=== PATIENT | male | born 1945 | race Caucasian/White ===

== ENCOUNTER 2020-01-12 19:24 | Inpatient (IN) | payer OTHER, MEDICARE, SELFPAY ==
--- NOTE | ~2020-01-12 | XR_ITS ---
EXAMINATION: XR abdomen/kub 1V DATE: 01/19/2020 09:18 INDICATION: Abdominal pain. Vomiting. TECHNIQUE: A supine view of the abdomen on 2 radiographs was obtained. COMPARISON: None. FINDINGS: There is gaseous distention of the colon. The small bowel is normal in caliber. IMPRESSION: 1. Gaseous distention of the colon, consistent with adynamic ileus versus distal obstruction. Reviewed, dictated and finalized at location B. IMPRESSION: 1. Gaseous distention of the colon, consistent with adynamic ileus versus dista l obstruction.
--- NOTE | ~2020-01-12 | XR_ITS ---
XR abdomen NG/feed tube insert INDICATION: Evaluate G-tube position. TECHNIQUE: Limited KUB perform for evaluating NG tube . COMPARISON: 01/19/2020 FINDINGS: NG tube tip in the stomach. Visualized bowel gas pattern is nonspecific. IMPRESSION: 1: NG tube tip in the stomach. Reviewed, dictated and finalized at location A.
--- NOTE | ~2020-01-12 | XR_ITS ---
XR abdomen/kub 1V 01/24/2020 09:08 Indication: Abdominal distention and nausea Procedure: KUB Comparison: 01/21/2020 Findings: Decreased gaseous distention of the colon. Interval removal of NG tube. No significant smal l bowel dilation. No abnormal calcifications. Small left pleural effusion. Cardiomegaly. Calcificatio ns in the right upper abdomen may represent calcified granulomas of the lung base. Impression: 1: Nonspecific bowel gas pattern, likely ileus. Decreased gaseous distention of the colon compared wi th prior study. Reviewed, dictated and finalized at location A. Impression: 1: Nonspecific bowel gas pattern, likely ileus. Decreased gaseous distention of the colon compared with prior study.
--- NOTE | ~2020-01-12 | US_ITS ---
EXAMINATION: US carotid duplex BI DATE: 01/13/2020 12:18 INDICATION: Left frontal lobe infarct. TECHNIQUE: Grayscale, color Doppler, and pulsed Doppler images of the cervical carotid arteries were obtained. The degree of vessel stenosis is placed in one of the following categories: normal, <50%, 5 0-69%, >=70% but less than near-occlusion, near-occlusion, or total occlusion. Note that percent sten osis relative to normal distal artery lumen diameter is indirectly measured from velocity measurement s as described by Mitch, et al. Radiology 2003; 229:340-346. COMPARISON: Brain MRI 02/02/2012, carotid ultrasound 02/02/2012 FINDINGS: RIGHT: The right common carotid artery (CCA) peak systolic velocity (PSV) is 93 cm/s. The right internal car otid artery (ICA) PSV is 52 cm/s. The right ICA end-diastolic velocity (EDV) is 12 cm/s. The right IC A/CCA PSV ratio is 0.6. Grayscale and color Doppler images yield an estimate of <50% diameter reducti on from plaque in the ICA. There is antegrade flow in the right vertebral artery. LEFT: The left CCA PSV is 93 cm/s. The left ICA PSV is 53 cm/s. The left ICA EDV is 11 cm/s. The left ICA/C CA PSV ratio is 0.6. The ICA lumen is obscured by shadowing plaque. There is antegrade flow in the le ft vertebral artery. IMPRESSION: 1. <50% stenosis in the right internal carotid artery. 2. <50% stenosis in the left internal carotid artery. Reviewed, dictated and finalized at location A.
--- NOTE | ~2020-01-12 | XR_ITS ---
EXAMINATION: XR chest 1V portable EXAM DATE: 01/18/2020 06:57 INDICATION: Pneumonia. TECHNIQUE: Portable AP frontal chest x-ray was obtained. Comparison is made to prior examination from 01/16/2020. FINDINGS: Moderate left, small to moderate right perihilar indistinct reticulation, and some more foc al opacities. There is some pulmonary vascular congestion. The cardiomediastinal silhouette is promin ent but magnified on this AP technique. Cardiac silhouette is stable in size compared to prior exam. There is no pneumothorax suspected. No sizable pleural effusion. Accounting for differences in techni que, there is no significant interval change. IMPRESSION: Persistent bilateral infection and/or edema. Reviewed, dictated and finalized at location B.
--- NOTE | ~2020-01-12 | CT_ITS ---
EXAMINATION: CT abdomen pelvis w con EXAM DATE: 01/19/2020 12:37 INDICATION: Abdominal distention. TECHNIQUE: Spiral CT of the abdomen and pelvis was performed following intravenous injection of 100 m L Omnipaque 350. Axial, coronal and sagittal images were reviewed. The dose-length product (DLP) fo r this examination was 1346.56 mGy-cm. The exposure was tailored according to patient size (auto mA exposure control), and iterative reconstruction (ASIR) was used as additional dose reduction techniqu e. There is no prior study for comparison. FINDINGS: The liver, spleen, adrenal glands and pancreas are unremarkable. Gallbladder is unremarkab le. No biliary obstruction. Portal and splenic veins are patent. Kidneys enhance symmetrically. T here is no hydronephrosis. The prostate is unremarkable. There are small bilateral inguinal fat-con taining hernias. The bladder is unremarkable. There is no retroperitoneal or pelvic lymphadenopathy . There is mild scattered arteriosclerotic disease. The appendix is normal. There is small sliding gastroesophageal hiatal hernia. There is colonic flu id, correlate for diarrhea. Colon is moderately to severely distended with fluid and gas, no focal tr ansition point. Consider diarrhea, colonic ileus. There is scattered colonic diverticulosis. There i s no adjacent inflammatory change to suggest diverticulitis. No free intraperitoneal gas. Small bi lateral pleural effusions. Some bilateral calcified pleural plaques indicating prior asbestos exposur e is likely. Bibasilar opacities most consistent with combination of atelectasis and pneumonia. The re are no osteoblastic or osteolytic lesions identified. IMPRESSION: 1. Moderately to severely distended colon with fluid and gas. Consider diarrhea, colonic ileus. No w all thickening or transition point. 2. Bibasilar opacities most consistent with multifocal atelectasis and pneumonia. 3. Small pleural effusions. Calcified pleural plaques. Reviewed, dictated and finalized at location A. IMPRESSION: 1. Moderately to severely distended colon with fluid and gas. Consider diarrhe a, colonic ileus. No wall thickening or transition point. 2. Bibasilar opacities most consistent with multifocal atelectasis and pneumon ia. 3. Small pleural effusions. Calcified pleural plaques.
--- NOTE | ~2020-01-12 | XR_ITS ---
EXAMINATION: XR shoulder RT min 2V DATE: 01/12/2020 21:17 INDICATION: Fall. Found on floor. TECHNIQUE: AP internally and externally rotated, AP oblique externally rotated and transscapular Y vi ews of the right shoulder were obtained. COMPARISON: None FINDINGS: Normal alignment. No fracture.Glenohumeral and moderate acromioclavicular osteoarthritis. Calcified pleural plaques at the right hemithorax. Additional airspace disease in the right lung. 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 No acute osseous abnormality. Reviewed, dictated and finalized at location A.
--- NOTE | ~2020-01-12 | CT_ITS ---
EXAMINATION: CT brain wo con DATE: 01/12/2020 20:35 INDICATION: Fall with head injury TECHNIQUE: Computed tomography (CT) of the head was performed without intravenous contrast. Sagittal and coronal reconstructions were performed. The mA was adjusted according to patient size. Iterative reconstruction technique was employed. The dose-length product was 681.00 mGy-cm. COMPARISON: head CT dated 01/24/2015 FINDINGS: Right frontal scalp hematoma with soft tissue swelling extending along the right orbital rim and pres eptal soft tissues. Globes appear intact with no post septal inflammatory stranding. No fracture. No acute intracranial hemorrhage, acute infarction or abnormal extra axial fluid collection. There is mi ld to moderate scattered white matter hypoattenuation consistent with chronic small vessel ischemic d isease. Symmetric prominence of the sulci and ventricles consistent with mild to moderateage-appropri ate diffuse cerebral volume loss. No mass/mass effect. Intracranial calcified cerebral atherosclerosi s is noted. The paranasal sinuses and mastoid air cells are normal. IMPRESSION: 1. No fracture or acute intracranial process. 2. Age-related changes including mild to moderate volume loss and mild to moderate scattered white ma tter hypoattenuation consistent with chronic small vessel ischemic disease. Reviewed, dictated and finalized at location A. IMPRESSION: 1. No fracture or acute intracranial process. 2. Age-related changes including mild to moderate volume loss and mild to moder ate scattered white matter hypoattenuation consistent with chronic small vessel ischemic disease.
--- NOTE | ~2020-01-12 | XR_ITS ---
EXAMINATION: XR chest 1V portable INDICATION: Worsening lung sounds TECHNIQUE: Portable AP chest at 1051 hours COMPARISON: 01/18/2020 FINDINGS: Right perihilar and upper lung zone airspace opacities persist with slight improvement. Air space opacities of the left midlung zone are unchanged. No pleural effusion or pneumothorax is identi fied. The cardiomediastinal silhouette is stable. IMPRESSION: 1. Improved airspace opacities on the right and stable left midlung zone airspace opacities, consiste nt with atelectasis versus pneumonia. Reviewed, dictated and finalized at location A. IMPRESSION: 1. Improved airspace opacities on the right and stable left midlung zone airspa ce opacities, consistent with atelectasis versus pneumonia.
--- NOTE | ~2020-01-12 | CT_ITS ---
EXAMINATION: CT brain wo con DATE: 01/25/2020 18:13 INDICATION: Confusion. Weakness. TECHNIQUE: Computed tomography (CT) of the head was performed without intravenous contrast. The mA wa s adjusted according to patient size. Iterative reconstruction technique was employed. Exam dose: 68 1.00 mGy-cm total exam DLP. COMPARISON: 01/12/2020 CT brain FINDINGS: There are prominent bilateral vertebral artery calcifications as well as some basilar arter y calcification. Prominent bilateral carotid siphon and some supraclinoid internal carotid artery elijah cifications are noted. There may be a small chronic right basal ganglia lacunar infarct. There is nonspecific patchy prominent diminished attenuation of the subcortical and periventricular c erebral white matter, likely due to chronic small vessel ischemic changes. There is moderately prominent central and cortical cerebral atrophy. Otherwise no intracranial mass lesion or hemorrhage or cerebrovascular accident, midline shift or mas s effect is detected. No subdural or epidural hematoma. No fracture or bone destruction of the cranial vault. The included paranasal sinuses and the mastoid air cells appear normally developed and aerated. IMPRESSION: Cerebral atherosclerosis and chronic small vessel ischemic changes of the cerebral white matter. Probable small right basal ganglia chronic lacunar infarct Reviewed, dictated and finalized at Location A. Reviewed, dictated and finalized at location A. IMPRESSION: Cerebral atherosclerosis and chronic small vessel ischemic changes of the cerebral white matter. Probable small right basal ganglia chronic lacun ar infarct
--- NOTE | ~2020-01-12 | XR_ITS ---
EXAMINATION: XR abdomen/kub 1V INDICATION: Possible bowel obstruction, weakness TECHNIQUE: Supine views of the abdomen were obtained on 2 radiographs. COMPARISON: 01/24/2020 FINDINGS: No definitely dilated loops of bowel are identified. The bowel gas pattern is nonspecific. No free intraperitoneal gas is identified. IMPRESSION: 1. Nonspecific bowel gas pattern without definite evidence of dilated bowel. Reviewed, dictated and finalized at location A.
--- NOTE | ~2020-01-12 | XR_ITS ---
EXAMINATION: XR chest 1V portable DATE: 01/14/2020 14:57 INDICATION: Dyspnea. TECHNIQUE: A single frontal view of the chest was obtained. COMPARISON: Chest single view 01/12/2020, chest 2 views 08/24/2014 FINDINGS: There are calcified bilateral pleural plaques, which may be seen with cystitis versus expos ure. There are airspace opacities in right perihilar region and at the lung bases. No pleural effusio n or pneumothorax. The heart size is normal. IMPRESSION: 1. Airspace opacities in right perihilar region and at the lung bases, consistent with atelectasis ve rsus pneumonia versus chronic lung disease. Reviewed, dictated and finalized at location A. IMPRESSION: 1. Airspace opacities in right perihilar region and at the lung bases, consiste nt with atelectasis versus pneumonia versus chronic lung disease.
--- NOTE | ~2020-01-12 | XR_ITS ---
EXAMINATION: XR chest 1V portable INDICATION: Pneumonia and shortness of breath TECHNIQUE: Portable AP chest at 1041 hours COMPARISON: 01/14/2020 FINDINGS: Airspace opacities of the right perihilar region have improved. There are developing airspa ce opacities of the left midlung zone. Bibasilar airspace opacities are stable. There is no pleural e ffusion or pneumothorax. The cardiomediastinal silhouette is normal. IMPRESSION: 1. Bilateral airspace opacities, developing in the left mid zone, improved in the right perihilar reg ion, and stable in the lung bases, consistent with atelectasis versus pneumonia. Reviewed, dictated and finalized at location A. IMPRESSION: 1. Bilateral airspace opacities, developing in the left mid zone, improved in t he right perihilar region, and stable in the lung bases, consistent with atelec tasis versus pneumonia.
--- NOTE | ~2020-01-12 | XR_ITS ---
EXAMINATION: XR abdomen/kub 1V DATE: 01/21/2020 13:21 INDICATION: Abdominal distention. TECHNIQUE: A supine view of the abdomen on 3 radiographs was obtained. COMPARISON: CT abdomen and pelvis 01/19/2020 FINDINGS: There is gaseous distention of the colon. The small bowel is normal in caliber. The nasogas tric tube tip is in the stomach. IMPRESSION: 1. Gaseous distention of the colon, consistent with adynamic ileus. Reviewed, dictated and finalized at location B.
--- NOTE | ~2020-01-12 | XR_ITS ---
EXAMINATION: XR tibia fibula RT 2V DATE: 01/12/2020 21:17 INDICATION: Fall. Found on floor. Poor historian. TECHNIQUE: Anteroposterior and lateral views of the right tibia and fibula were obtained. COMPARISON: None. FINDINGS: Alignment is normal. No fracture. Joint spaces appear relatively preserved. No right knee or ankle giles int effusion. Mild soft tissue swelling about the ankle and distal lower leg. Scattered vascular calc ifications. IMPRESSION: 1. No acute osseous abnormality. Reviewed, dictated and finalized at location A.
--- NOTE | ~2020-01-12 | XR_ITS ---
EXAMINATION: XR elbow RT min 3V DATE: 01/14/2020 13:21 INDICATION: Right elbow pain. Fall. TECHNIQUE: 4 views of right elbow were obtained. COMPARISON: None. FINDINGS: Bone alignment is normal. No fracture. There is mild elbow joint osteoarthritis. There is a n elbow joint effusion. There is mild soft tissue swelling over the olecranon. IMPRESSION: 1. Elbow joint effusion. No fracture identified. 2. Mild elbow joint osteoarthritis. Reviewed, dictated and finalized at location A.
--- NOTE | ~2020-01-12 | XR_ITS ---
EXAMINATION: XR hip RT 2V w AP pelvis DATE: 01/12/2020 21:17 INDICATION: Fall. Found on floor. Poor historian. TECHNIQUE: Anteroposterior view of the pelvis and anteroposterior and cross-table lateral views of th e right hip were obtained. COMPARISON: None. FINDINGS: Alignment is normal. No fracture. Bilateral hip joint spaces appear relatively preserved with small m arginal osteophytes along the rim of the left acetabulum. Scattered atherosclerotic calcifications. IMPRESSION: 1. No acute osseous abnormality. Reviewed, dictated and finalized at location A.
--- NOTE | ~2020-01-12 | XR_ITS ---
EXAMINATION: XR chest 1V portable DATE: 01/12/2020 21:17 INDICATION: Atrial fibrillation. Fall. TECHNIQUE: frontal view of the chest was obtained. COMPARISON: Chest radiograph dated 08/24/2014 FINDINGS: Lung volumes are decreased. Again seen are bilateral calcified pleural plaques. Cardiomegaly with pul monary vascular congestion. Opacities in the bilateral mid and lower lung zones which could represent atelectasis, pulmonary edema or pneumonia. No pneumothorax or definitive pleural effusion. IMPRESSION: 1. Opacities in the bilateral mid and lower lung zones which could represent atelectasis, pulmonary e gary or pneumonia. 2. Cardiomegaly. 3. 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 Reviewed, dictated and finalized at location A. IMPRESSION: 1. Opacities in the bilateral mid and lower lung zones which could represent at electasis, pulmonary edema or pneumonia. 2. Cardiomegaly. 3. 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
--- NOTE | ~2020-01-12 | US_ITS ---
EXAMINATION: US venous doppler LE RT DATE: 01/13/2020 10:13 INDICATION: Right leg redness TECHNIQUE: Michele scale images without and with compression and Doppler images of the right lower extre mity veins were obtained. COMPARISON: None FINDINGS: The right common femoral vein, profunda femoral vein, femoral vein, popliteal vein, peronea l trunk, posterior tibial veins, and greater saphenous vein are patent. IMPRESSION: 1. Patent right lower extremity veins. No evidence of deep venous thrombosis. Reviewed, dictated and finalized at location A.
[2020-01-12 19:20] VITALS: BP 139/85; PULSE 78; RESP 18; TEMP 36.8; O2SAT 95
--- NOTE | 2020-01-12 19:47 | ECG_ITS ---
Measurements Intervals [place] Rate: 83 P: 36 [place]: 142 QRS: 3 QRSD: 128 T: -8 QT: 388 QTc: 458 Interpretive Statements SINUS RHYTHM RIGHT BUNDLE BRANCH BLOCK BASELINE ARTIFACT- I, II, III, AVR, AVL, AVF ABNORMAL ECG Electronically Signed On 01-13-2020 7:06:55 CDT by Hermelindo Mauro D.O.
[2020-01-12 20:00] VITALS: BP 124/81; PULSE 82; RESP 23; O2SAT 96
[2020-01-12] MEDS: LACTATED RINGERS 1,000 ML 999 ML IV CONT (20:11)
[2020-01-12 20:13] LABS: Hematocrit 43.8 % (42.0-52.0); Hemoglobin 14.8 g/dL (14.0-18.0); Mean Corpuscular HGB Conc 33.8 g/dl (32-36); Mean Corpuscular Hemoglobin 33.7 pg (26-34); Mean Corpuscular Volume 99.8 fl (80-100); Platelet Count Result 224 k/mm3 (150-375); Red Blood Count 4.39 M/mm3 (4.6-6.20); Red Cell Distribution Width 13.9 % (11.5-14.5)
[2020-01-12 20:21] LABS: INR 1.2; Prothrombin Time 14.4 Seconds (11.1-14.7)
[2020-01-12 20:22] LABS: Partial Thromboplastin Time 39.8 SECONDS (22.3-36.8)
[2020-01-12 20:32] LABS: Band Neutrophils Percent 5 % (0-6); Lymphocytes Absolute Manual 1.05 K/mm3 (1.1-4.5); Monocytes Percent Manual 8 % (3-9); Neutrophils Absolute Manual 12.75 K/mm3 (1.3-6.7); Neutrophils Percent Manual 80 % (46-73); Platelet Estimate Adequate (Adequate); Total Cells Counted 100
[2020-01-12 20:47] LABS: Alanine Aminotransferase 27 U/L (4-50); Albumin Level 3.9 g/dL (3.5-5.1); Alkaline Phosphatase 85 U/L (38-126); Anion Gap 10 mmol/L (8-16); Aspartate Amino Transferase 51 U/L (17-59); Bilirubin,Total 1.3 mg/dL (0.2-1.3); Blood Urea Nitrogen 31 mg/dL (9-20); Calcium 9.1 mg/dL (8.4-10.2); Carbon Dioxide 27 mmol/L (22-30); Chloride 102 mmol/L (98-107); Creatine Kinase 586 U/L (55-170); Estimated CRCL calculation 94 ml/min; Estimated Glomerular Filt Rate > 60; Glucose 122 mg/dL (75-110); Magnesium 1.7 mg/dL (1.6-2.3); Potassium 3.4 mmol/L (3.4-5.0); Sodium 139 mmol/L (137-145)
[2020-01-12 20:57] LABS: CRP 19.4 mg/dL (<1.0)
[2020-01-12 21:37] LABS: Add Urine Microscopic? YES; Appearance Urine Cloudy (Clear); Bilirubin Urine Negative (Negative); Blood Urine Negative (Negative); Color Urine Amber (Yellow); Glucose Urine UA Negative (Negative); Ketones Urine Trace mg/dL (Negative); Leukocyte Esterase Ur Negative LEU/UL (Negative); Mucus Urine Heavy /lpf; Nitrate Urine Negative (Negative); Protein Urine 1+ mg/dL (Negative); Specific Grav Ur 1.029 (1.001-1.035); Urobilinogen Urine Negative mg/dL (<2.0)
--- NOTE | 2020-01-12 21:49 | ED.FALL ---
HPI - Fall General Chief Complaint: Fall Stated Complaint: Fall Time Seen by Provider: 01/12/20 19:34 Source: patient Mode of arrival: EMS History of Present Illness HPI Narrative: This patient is a 74 year old male with history of hypertension and atrial fibrillation who presents via EMS for evaluation of a fall. Patient states he became dizziness yesterday walking in his home and he fell. He hit his head and he was unable to get up after fall. He fell yesterday afternoon and he has been laying in his home since. His sister could not get a hold of patient so she called 911 to [facility] check. PAtient was found on the floor in soiled clothes. He denies headache, nausea or vomiting. He denies chest pain or sob. He has right hip and right hip pain. MD complaint: fall Related Data Home Medications Medication Instructions Recorded Confirmed rivaroxaban [Xarelto] 5 mg PO DAILY 01/13/20 01/13/20 Allergies Allergy/AdvReac Type Severity Reaction Status Date / Time Penicillins Allergy Unknown Unknown Verified 01/12/20 19:43 Review of Systems Review of Systems: All systems reviewed & are unremarkable except as noted in HPI and below Constitutional: Constitutional: Denies chills, Reports fatigue and Denies fever(s) Cardiovascular: Cardiovascular: Denies chest pain Respiratory: Respiratory: Denies cough and Denies dyspnea Gastrointestinal: Gastrointestinal: Denies abdominal pain, Denies nausea and Denies vomiting PMFSH Past Medical History Medical History Atrial fibrillation Hypertension Family History Family History Sibling Hypertension Patient's brother is in good health Father Family history of lung cancer Patient's father is Mother Family history of renal failure Patient's mother is Social History Social History Smoking status: Never smoker Alcohol intake: never Substance use: never Substance use type: does not use Gender identity (if verbalized by the patient): Male Spiritual care concerns: No Exam Const: General: alert and ill appearing Orientation/consciousness: patient oriented x3 HENMT: Head: other (right forehead swelling) Face and sinus: other (right periorbital edema) Mouth: Yes dry mucous membranes Throat: uvula midline Eyes: Pupils: Equal, round and reactive pupils present EOM: EOMs intact bilaterally Neck: Neck: normal visual inspection Chest: Chest palpation & inspection: normal inspection of the chest and no tenderness Resp: Effort & Inspection: normal respiratory effort, no retractions and no use of accessory muscles Auscultation: clear to auscultation bilaterally Cardio: Rate: regular rate Rhythm: regular rhythm Heart sounds: no murmurs GI: GI Palp: Yes Soft to palpation, No Firmness to palpation present (GI), No Tenderness to palpation present (GI) and No Guarding due to palpation present (GI) Auscultation: normal bowel sounds Neuro: General: patient oriented x3, moves all extremities and CN's II-XI intact bilaterally Extrem: Other: right leg erythema and tenderness from foot to knee. Patient able to lift both legs off bed Course Consultations Consultation #1: I Discussed case with Dr. Coronel who accepts patient for observation Date: 01/12/20 Time: 22:38 Vital Signs Vital signs: Vital Signs Temperature 98.3 F 01/12/20 19:20 Pulse Rate 78 01/12/20 19:20 Respiratory Rate 18 01/12/20 19:20 Blood Pressure 139/85 01/12/20 19:20 Pulse Oximetry 95 01/12/20 19:20 Temperature 97.9 F 01/13/20 06:00 Pulse Rate 84 01/13/20 06:00 Respiratory Rate 20 01/13/20 06:00 Blood Pressure 136/73 01/13/20 06:00 Pulse Oximetry 97 01/13/20 06:00 MDM - Fall Lab Data Attestation: I reviewed the patient's lab results. Resul
--- NOTE | 2020-01-12 21:52 | ECG_ITS ---
Measurements Intervals [place] Rate: 84 P: 47 [place]: 139 QRS: 9 QRSD: 128 T: -5 QT: 385 QTc: 457 Interpretive Statements SINUS RHYTHM RIGHT BUNDLE BRANCH BLOCK BASELINE ARTIFACT- I, II, III, AVR, AVL, AVF, V1-V6 ABNORMAL ECG Electronically Signed On 01-13-2020 7:04:48 CDT by Hermelindo aMuro D.O.
[2020-01-12] MEDS: CLINDAMYCIN 600 MG/NS 50 ML 600 MG/50 ML PIGGYBACK 100 MG IVPB (22:00)
--- NOTE | 2020-01-12 23:40 | PM.IMHP ---
H&P: HPI History of Present Illness Date/Time: 01/12/20 23:40 Chief complaint: frequent falls, right leg cellulitis, weakness Narrative: This is a pleasant 74 year old male with history of HTN and atrial fibrillation who presented to the hospital for evaluation of getting dizzy yesterday and falling. He apparently was walking from the kitchen when he got dizzy and fell. He admits that he struck the right side of his forehead and was unable to get up afterwards. He laid on the floor since yesterday afternoon until his sister called 911 and a wellness check was done. The patient tonight denies any fevers, chills, coughing, shortness of breath, headache, abdominal pain, dysuria, hematuria, nausea, vomiting, diarrhea or rectal bleeding. The patient was evaluated in the ER tonight and routine labs were obtained and demonstrated leukocytosis. He was found to have a swollen erythematous right leg which he states is not bothering him. He was started on IV antibiotics for presumed RLE cellulitis. He denies any other complaints at this time. Review of Systems Review of Systems: All systems reviewed & are unremarkable except as noted in HPI and below PMFSH Past Medical History Medical History Atrial fibrillation Hypertension Family History Family History Sibling Hypertension Patient's brother is in good health Father Family history of lung cancer Patient's father is Mother Family history of renal failure Patient's mother is Social History Social History Smoking status: Never smoker Alcohol intake: never Substance use: never Substance use type: does not use Gender identity (if verbalized by the patient): Male Spiritual care concerns: No Meds Home Medications and Allergies Home Medications Medication Instructions Recorded Confirmed Type rivaroxaban [Xarelto] 5 mg PO DAILY 01/13/20 01/13/20 History Allergies Allergy/AdvReac Type Severity Reaction Status Date / Time Penicillins Allergy Unknown Unknown Verified 01/12/20 19:43 Vital Signs Vital Signs - 24 hr 01/12/20 19:20 01/12/20 20:00 Temperature 36.8 C Pulse Rate 78 82 Respiratory Rate 18 23 H Blood Pressure 139/85 124/81 Pulse Oximetry 95 96 Exam Const: General: cooperative, alert and awake Nutritional Appearance: obese Orientation/consciousness: patient oriented x3 HENMT: Head: abrasion right frontal General nose exam: Normal external nose present Face and sinus: normal facial exam Mouth: Yes Normal oral and palatal mucosa present and Yes oropharynx normal Eyes: Pupils: Equal, round and reactive pupils present EOM: EOMs intact bilaterally Neck: Neck: supple and no JVD Thyroid: thyroid normal Lymphatic: lymphadenopathy not noted Resp: Effort & Inspection: normal respiratory effort Auscultation: clear to auscultation bilaterally Cardio: Rate: regular rate Rhythm: regular rhythm Heart sounds: no murmurs GI: Inspection: normal to inspection Auscultation: normal bowel sounds Skin: General skin exam: erythema (Extending from the right knee down to the foot++ Hot to touch++ ) Neuro: General: patient oriented x3 Cranial nerves: Yes CN's II-XII intact bilaterally and Yes Equal, round and reactive pupils present Speech: normal speech Motor exam (neuro): 5/5 motor strength present throughout Sensory Exam: normal sensation Extrem: General: normal to inspection and no edema Psych: Mental Status: mental status grossly normal Affect: normal affect H&P: Results Labs Labs: Short CBC 01/12/20 01/12/20 Range/Units 20:05 20:05 WBC 15.0 H (4.5-10.0) K/mm3 Hgb 14.8 (14.0-18.0) g/dL Hct 43.8 (42.0-52.0) % Plt Count 224 (150-375) k/mm3 Total Creatine Kinase 586 H (55-170) U/L [facility] 12/25
[2020-01-12 23:49] VITALS: BP 159/78; PULSE 90; RESP 18; O2SAT 97
[2020-01-13] VITALS (10 sets, daily range): BP systolic 136–163; BP diastolic 73–88; PULSE 72–87; RESP 16–20; TEMP 36.4–37.3; O2SAT 95–99; BMI 31.4
[2020-01-13] MEDS: SODIUM CHLORIDE 0.9% IV 1,000 ML 125 ML IV CONT ×2 (01:24→13:40)
--- NOTE | 2020-01-13 01:40 | ADMGEN ---
This patient, Kieran Sanchez, was admitted to 3 [facility] Surg Room 304-02. Patient/family oriented to hospital policies and general routines including ID bracelet, bed and alarms, visiting hours, pain management, procedures, bathroom and other care routines, personal items, smoking policy, room service/diet, and visiting hours. Valuables list has been completed. Information on how to activate the Rapid Response Team has been discussed. Patient/Family are encouraged to report perceived risks to care and to ask questions if they do not understand what they are told or what they should do.
--- NOTE | 2020-01-13 01:53 | ECHO_ITS ---
Patient Info Name: Kieran Sanchez Age: 74 years : 1945 Gender: Male Ht: 70 in Wt: 218 lbs BSA: 2.24 m2 HR: 94 bpm BP: 136 / 93 mmHg Heart Rhythm: Sinus Rhythm Technical Quality: Good Exam Date: 01/13/2020 11:19 AM Exam Location: [facility] Pulmonary Exam Room: [facility] Patient Status: Outpatient Admit Date: 01/12/2020 Staff Ordering Physician: Walker Coronel MD Sheriffs: Socorro Knowles [employer] Attending Provider: Walker Coronel MD Referring Physician: Homer NOBLE; Exam Type: CA echo doppler color flow Study Info Indications - syncope Complete two-dimensional, color flow and Doppler transthoracic echocardiogram is performed. Summary 1. Left ventricular systolic function is normal, estimated at 60-65%. 2. There is no increased left ventricular wall thickness. 3. The left ventricular diastolic function is grade I diastolic dysfunction. 4. There is no aortic valve stenosis. 5. There is mild aortic valve sclerosis with focal calcification of the noncoronary cusp. 6. There is trace mitral valve regurgitation. 7. The mitral valve annulus is severely calcified. 8. There is mild tricuspid valve regurgitation. 9. No pulmonary hypertension, estimated pulmonary arterial systolic pressure is 26 mmHg. Left Ventricle Left ventricular chamber dimension is normal. Left ventricular systolic function is normal, estimated at 60-65%. There is no increased left ventricular wall thickness. The left ventricular diastolic function is grade I diastolic dysfunction. Right Ventricle Right ventricular chamber dimension is normal. Right ventricular systolic function is normal. Left Atria Left atrial chamber dimension is normal. Right Atria Right atrial chamber dimension is normal. Aortic Valve The aortic valve is trileaflet. There is mild aortic valve sclerosis with focal calcification of the noncoronary cusp. There is no aortic valve stenosis. There is no aortic valve regurgitation. Pulmonic Valve The pulmonic valve is not well visualized. Mitral Valve The mitral valve has thickened leaflets. There is trace mitral valve regurgitation. The mitral valve annulus is severely calcified. Tricuspid Valve The tricuspid valve leaflets are normal. There is mild tricuspid valve regurgitation. No pulmonary hypertension, estimated pulmonary arterial systolic pressure is 26 mmHg. Pericardium/Pleural The pericardium appears normal. There is trivial pericardial effusion. Inferior Vena Cava Normal inferior vena cava with >50% collapse upon inspiration consistent with normal right atrial pressure, 5 mmHg. Aorta The aortic root size at the sinus of Valsalva is normal. Left Ventricular Outflow Tract Name Value Normal LVOT 2D LVOT Diameter 2.0 cm LVOT Doppler LVOT Peak Gradient 5 mmHg LVOT Mean Gradient 3 mmHg LVOT VTI 22 cm LVOT VTI/AV VTI Ratio 0.8 LVOT Stroke Volume 72 ml LVOT CO 17.1 l/min
[2020-01-13] MEDS: CLINDAMYCIN 600 MG/NS 50 ML 600 MG/50 ML PIGGYBACK 100 MG IVPB ×3 (04:56→21:27)
[2020-01-13 06:14] LABS: Basophils Percent Auto 0.2 % (0.2-1.2); Eosinophils Percent Auto 0.1 % (0-4.4); Hematocrit 43.4 % (42.0-52.0); Hemoglobin 14.2 g/dL (14.0-18.0); Immature Granulocyte Absolute 0.06 K/mm3 (0.00-0.031); Immature Granulocyte Percent A 0.4 % (0-0.5); Lymphocytes Absolute Auto 0.74 K/mm3 (0.9-3.2); Lymphocytes Percent Auto 5.2 % (18.3-44.2); Mean Corpuscular HGB Conc 32.7 g/dl (32-36); Mean Corpuscular Volume 100.9 fl (80-100); Mean Platelet Volume 10.3 fl (7.4-10.4); Monocytes Absolute Auto 1.2 K/mm3 (0.1-0.6); Monocytes Percent Auto 8.3 % (2.6-8.5); Neutrophils Absolute Auto 12.2 K/mm3 (1.3-6.7); Neutrophils Percent Auto 85.8 % (45.5-73.1); Platelet Count Result 217 k/mm3 (150-375); Red Cell Distribution Width 13.7 % (11.5-14.5); White Blood Count 14.2 K/mm3 (4.5-10.0)
[2020-01-13 06:28] LABS: Alanine Aminotransferase 24 U/L (4-50); Albumin Level 3.6 g/dL (3.5-5.1); Alkaline Phosphatase 72 U/L (38-126); Anion Gap 8 mmol/L (8-16); Aspartate Amino Transferase 51 U/L (17-59); Bilirubin,Total 1.2 mg/dL (0.2-1.3); Blood Urea Nitrogen 35 mg/dL (9-20); Calcium 8.5 mg/dL (8.4-10.2); Carbon Dioxide 28 mmol/L (22-30); Chloride 101 mmol/L (98-107); Estimated CRCL calculation 96 ml/min; Estimated Glomerular Filt Rate > 60; Glucose 103 mg/dL (75-110); Potassium 3.2 mmol/L (3.4-5.0); Sodium 137 mmol/L (137-145)
[2020-01-13 08:01] LABS: Creatine Kinase 502 U/L (55-170); Magnesium 1.7 mg/dL (1.6-2.3)
[2020-01-13] MEDS: POTASSIUM CHLORIDE 20 MEQ TABLET 40 MEQ PO (08:42)
[2020-01-13] MEDS: RIVAROXABAN 2.5 MG TABLET 5 MG PO (08:42)
--- NOTE | 2020-01-13 11:33 | PCOTNOTE ---
Attempted OT evaluation, pt having echo performed. Will attempt at later time.
[2020-01-13 13:53] LABS: Glucose Point of Care 146 (65-105)
--- NOTE | 2020-01-13 14:02 | PM.IMPN ---
Progress Note: A&P Assessment and Plan (1) Cellulitis of right leg: Code(s): L03.115 - Cellulitis of right lower limb Status: Acute Assessment and Plan: Admit to med-surg, Continue IV antibiotics. Blood cultures pending. Check RLE dopper U/S in am to rule out DVT. Pain control as needed. Antipyretics as needed. 01/13/20 14:02 patient is 74-year-old male with history of hypertension atrial fibrillation for which he is taking Eliquis was brought to emergency department after had fallen and was found on the floor, patient states on and off he feels dizzy and fall, he denies any associated symptoms of chest pain palpitation fever or chills, room is not moving, he just feels lightheaded, his legs are weak he falls, patient had CT scan of the head which was essentially normal for any acute injury, patient had x-ray of the shoulder, and hip and pelvis there is no acute bony fracture, to further evaluate patient had a cardiac echo and carotid ultrasound, carotid ultrasound is negative for any significant stenosis, cardiac echo is pending, patient is also found to have right lower extremity swelling tenderness and erythema, diagnosed with cellulitis being treated with clindamycin, had a lower extremity Doppler to rule out DVT which is negative.will have a PT OT evaluate the patient, patient will benefit from going into rehab before discharging home. (2) Syncope and collapse: Code(s): R55 - Syncope and collapse Status: Acute Assessment and Plan: Continue IV hydration, TSH w/ reflex T4, fall precautions, Echocardiogram in am. Telemetry. (3) Leukocytosis: Code(s): D72.829 - Elevated white blood cell count, unspecified Status: Acute Assessment and Plan: Secondary to cellulitis. Monitor CBCd. (4) Hypertension: Qualifiers: Hypertension type: unspecified Qualified Code(s): I10 - Essential (primary) hypertension Code(s): I10 - Essential (primary) hypertension Status: Chronic Assessment and Plan: Monitor blood pressure. Resume home antihypertensives. (5) Atrial fibrillation: Qualifiers: Atrial fibrillation type: unspecified Qualified Code(s): I48.91 - Unspecified atrial fibrillation Code(s): I48.91 - Unspecified atrial fibrillation Status: Chronic Assessment and Plan: paroxysmal atrial fibrillation - currently in sinus rhythm. Subjective Date/time seen: 01/13/20 14:02 patient is 74-year-old male with history of hypertension atrial fibrillation for which he is taking Eliquis was brought to emergency department after had fallen and was found on the floor, patient states on and off he feels dizzy and fall, he denies any associated symptoms of chest pain palpitation fever or chills, room is not moving, he just feels lightheaded, his legs are weak he falls, patient had CT scan of the head which was essentially normal for any acute injury, patient had x-ray of the shoulder, and hip and pelvis there is no acute bony fracture, to further evaluate patient had a cardiac echo and carotid ultrasound, carotid ultrasound is negative for any significant stenosis, cardiac echo is pending, patient is also found to have right lower extremity swelling tenderness and erythema, diagnosed with cellulitis being treated with clindamycin, had a lower extremity Doppler to rule out DVT which is negative.will have a PT OT evaluate the patient, patient will benefit from going into rehab before discharging home. Review of Systems Review of Systems: All systems reviewed & are unremarkable except as noted in HPI and below Exam Narrative: Exam Narrative: elderly frail Const: General: comfortable and no acute distress HENMT: General nose exam: Normal nares present Eyes: General: appearance normal, both eyes and all related structures Sclera: sclerae normal Neck: Neck: supple Resp: Effort & Inspection: normal respiratory effort Auscultat
[2020-01-14] VITALS (16 sets, daily range): BP systolic 140–142; BP diastolic 71–87; PULSE 68–92; RESP 18–24; TEMP 36.3–37.2; O2SAT 93–99
[2020-01-14] MEDS: SODIUM CHLORIDE 0.9% IV 1,000 ML 125 ML IV CONT ×2 (00:57→09:14)
[2020-01-14] MEDS: CLINDAMYCIN 600 MG/NS 50 ML 600 MG/50 ML PIGGYBACK 100 MG IVPB ×3 (05:27→20:11)
[2020-01-14 06:07] LABS: Hematocrit 38.5 % (42.0-52.0); Hemoglobin 12.7 g/dL (14.0-18.0); Mean Corpuscular Hemoglobin 33.4 pg (26-34); Mean Corpuscular Volume 101.3 fl (80-100); Mean Platelet Volume 10.1 fl (7.4-10.4); Platelet Count Result 185 k/mm3 (150-375); Red Cell Distribution Width 13.6 % (11.5-14.5); White Blood Count 9.8 K/mm3 (4.5-10.0)
[2020-01-14 06:36] LABS: Anion Gap 4 mmol/L (8-16); Blood Urea Nitrogen 28 mg/dL (9-20); Calcium 7.6 mg/dL (8.4-10.2); Carbon Dioxide 29 mmol/L (22-30); Chloride 107 mmol/L (98-107); Creatine Kinase 295 U/L (55-170); Estimated CRCL calculation 96 ml/min; Estimated Glomerular Filt Rate > 60; Glucose 98 mg/dL (75-110); Potassium 2.7 mmol/L (3.4-5.0); Sodium 140 mmol/L (137-145)
[2020-01-14] MEDS: RIVAROXABAN 2.5 MG TABLET 5 MG PO (09:17)
[2020-01-14 11:30] LABS: Potassium 2.8 mmol/L (3.4-5.0)
[2020-01-14 13:30] LABS: Anion Gap 6 mmol/L (8-16); Blood Urea Nitrogen 26 mg/dL (9-20); Calcium 7.7 mg/dL (8.4-10.2); Carbon Dioxide 28 mmol/L (22-30); Chloride 104 mmol/L (98-107); Estimated CRCL calculation 96 ml/min; Estimated Glomerular Filt Rate > 60; Glucose 103 mg/dL (75-110); Magnesium 2.1 mg/dL (1.6-2.3); Potassium 2.8 mmol/L (3.4-5.0); Sodium 138 mmol/L (137-145)
[2020-01-14 13:59] LABS: SARS-CoV-2 RNA PCR Negative
--- NOTE | 2020-01-14 14:16 | PM.IMPN ---
Progress Note: A&P Assessment and Plan (1) Cellulitis of right leg: Code(s): L03.115 - Cellulitis of right lower limb Status: Acute Assessment and Plan: Admit to med-surg, Continue IV antibiotics. Blood cultures pending. Check RLE dopper U/S in am to rule out DVT. Pain control as needed. Antipyretics as needed. 01/14/20 14:16 patient is 74-year-old male with history of hypertension atrial fibrillation for which he is taking Eliquis was brought to emergency department after had fallen and was found on the floor, patient states on and off he feels dizzy and fall, he denies any associated symptoms of chest pain palpitation fever or chills, room is not moving, he just feels lightheaded, his legs are weak he falls, patient had CT scan of the head which was essentially normal for any acute injury, patient had x-ray of the shoulder, and hip and pelvis there is no acute bony fracture, to further evaluate patient had a cardiac echo and carotid ultrasound, carotid ultrasound is negative for any significant stenosis, cardiac echo is pending, patient is also found to have right lower extremity swelling tenderness and erythema, diagnosed with cellulitis being treated with clindamycin, had a lower extremity Doppler to rule out DVT which is negative. today patient states the pain in right leg is improved, however complains of pain in right elbow and painful to move, he also complains of loose bowel movement which are persisting for last 2 months he was seen at the [facility] and was told and further infectious but no detail, will do the stool culture, currently patient is on vancomycin and imipenem for cellulitis, will have a PT OT evaluate the patient, patient will benefit from going into rehab before discharging home. (2) Syncope and collapse: Code(s): R55 - Syncope and collapse Status: Acute Assessment and Plan: Continue IV hydration, TSH w/ reflex T4, fall precautions, Echocardiogram in am. Telemetry. patient cardiac echo is essentially normal with ejection fraction of 60%, patient has grade 1 diastolic dysfunction unlikely cardiac cause of syncope. (3) Leukocytosis: Code(s): D72.829 - Elevated white blood cell count, unspecified Status: Acute Assessment and Plan: Secondary to cellulitis. Monitor CBCd. (4) Hypertension: Qualifiers: Hypertension type: unspecified Qualified Code(s): I10 - Essential (primary) hypertension Code(s): I10 - Essential (primary) hypertension Status: Chronic Assessment and Plan: Monitor blood pressure. Resume home antihypertensives. (5) Atrial fibrillation: Qualifiers: Atrial fibrillation type: unspecified Qualified Code(s): I48.91 - Unspecified atrial fibrillation Code(s): I48.91 - Unspecified atrial fibrillation Status: Chronic Assessment and Plan: paroxysmal atrial fibrillation - currently in sinus rhythm. Subjective Date/time seen: 01/14/20 14:16 patient is 74-year-old male with history of hypertension atrial fibrillation for which he is taking Eliquis was brought to emergency department after had fallen and was found on the floor, patient states on and off he feels dizzy and fall, he denies any associated symptoms of chest pain palpitation fever or chills, room is not moving, he just feels lightheaded, his legs are weak he falls, patient had CT scan of the head which was essentially normal for any acute injury, patient had x-ray of the shoulder, and hip and pelvis there is no acute bony fracture, to further evaluate patient had a cardiac echo and carotid ultrasound, carotid ultrasound is negative for any significant stenosis, cardiac echo is pending, patient is also found to have right lower extremity swelling tenderness and erythema, diagnosed with cellulitis being treated with clindamycin, had a lower extremity Doppler to rule out DVT which is negative. today patient states the pain in right
[2020-01-14] MEDS: IPRATROPIUM BR 0.02% INH SOLN 0.5 MG/2.5 ML VIAL INHALATION ×2 (15:13→20:35)
[2020-01-14] MEDS: BUDESONIDE RESPULE NEB 0.5 MG/2 ML AMP INHALATION ×2 (15:13→20:35)
[2020-01-14 15:20] LABS: Alveolar/Arterial O2 Gradient 83.1 mmHg; Base Excess ABG -0.4 mEq/l (+/-2.0); Fractional Inspired Oxygen 32 %; HCO3 ABG 23.1 mEq/l (22.0-26.0); Oxygen Content ABG 19.1 %vol (16.0-22.0); Oxyhemoglobin 97.1 % THb (90.0-100.0); PCO2 ABG 34.3 mmHg (35.0-45.0); PO2 ABG 104.9 mmHg (80.0-100.0); PO2 FiO2 Ratio Arterial Blood 3.28 %; Total Hemoglobin 13.9 g/dL (12.0-18.0); pH ABG 7.446 (7.350-7.450)
[2020-01-14 15:22] LABS: Device NASAL CANNULA; Modified Allen's Test Pass; Site Drawn LEFT RADIAL
[2020-01-14] MEDS: POTASSIUM CHLORIDE 20 MEQ TABLET 40 MEQ PO (16:20)
[2020-01-14] MEDS: methylPREDNISolone SOD SUCC 125 MG VIAL IV PUSH (16:20)
--- NOTE | 2020-01-14 19:19 | PC.NURSE ---
At 1230, pt increased resp rate, audible expiratory wheeze, fine crackles in the lung bases. Pt states he doesn't feel well. Readjusted him in bed, and I called Dr. Yates to stop his NS @ 125 mls/hr. I informed him of pt symptoms, but he declined further intervention at this time. At 1350, I went back into pt room and found him with increased WOB, still tachypnic, exp wheeze and crackles in bases. Called Dr. Yates to report critical K and inform him of pt further difficulties with respirations. Dr. Yates ordered 3L 02 NC, but did not order IVP diuretics due to pt ongoing diarrhea. Eventually, added orders of CXR, IVP 125mg of solumedrol, stat ABG, stat CXR portable, stat atrovent and pulmicort nebs, followed by ongoing atrovent Q4h and pulmicort Q12h. Continued to monitor patient. Pt at 1600 said he felt much better, no wheezes present.
[2020-01-14 19:57] LABS: Anion Gap 9 mmol/L (8-16); Blood Urea Nitrogen 24 mg/dL (9-20); Calcium 7.5 mg/dL (8.4-10.2); Carbon Dioxide 23 mmol/L (22-30); Chloride 104 mmol/L (98-107); Estimated CRCL calculation 110 ml/min; Estimated Glomerular Filt Rate > 60; Glucose 225 mg/dL (75-110); Potassium 3.5 mmol/L (3.4-5.0); Sodium 136 mmol/L (137-145)
[2020-01-14] MEDS: ONDANSETRON INJ 4 MG/2 ML VIAL IV PUSH (20:11)
[2020-01-15] VITALS (22 sets, daily range): BP systolic 133–141; BP diastolic 60–72; PULSE 60–84; RESP 16–22; TEMP 36.2–36.9; O2SAT 92–100
[2020-01-15] MEDS: IPRATROPIUM BR 0.02% INH SOLN 0.5 MG/2.5 ML VIAL INHALATION ×6 (00:09→19:58)
[2020-01-15] MEDS: CLINDAMYCIN 600 MG/NS 50 ML 600 MG/50 ML PIGGYBACK 100 MG IVPB ×3 (05:25→20:46)
[2020-01-15 06:09] LABS: Hematocrit 41.7 % (42.0-52.0); Hemoglobin 13.5 g/dL (14.0-18.0); Mean Corpuscular HGB Conc 32.4 g/dl (32-36); Mean Corpuscular Hemoglobin 32.5 pg (26-34); Mean Corpuscular Volume 100.2 fl (80-100); Mean Platelet Volume 10.5 fl (7.4-10.4); Platelet Count Result 223 k/mm3 (150-375); Red Blood Count 4.16 M/mm3 (4.6-6.20); Red Cell Distribution Width 13.3 % (11.5-14.5); White Blood Count 8.3 K/mm3 (4.5-10.0)
[2020-01-15 06:26] LABS: Anion Gap 8 mmol/L (8-16); Blood Urea Nitrogen 18 mg/dL (9-20); Calcium 7.8 mg/dL (8.4-10.2); Carbon Dioxide 28 mmol/L (22-30); Chloride 103 mmol/L (98-107); Creatine Kinase 180 U/L (55-170); Estimated CRCL calculation 110 ml/min; Estimated Glomerular Filt Rate > 60; Glucose 119 mg/dL (75-110); Potassium 3.3 mmol/L (3.4-5.0); Sodium 139 mmol/L (137-145)
[2020-01-15] MEDS: POTASSIUM CHLORIDE 20 MEQ TABLET 40 MEQ PO (08:36)
[2020-01-15] MEDS: RIVAROXABAN 2.5 MG TABLET 5 MG PO (08:38)
[2020-01-15] MEDS: BUDESONIDE RESPULE NEB 0.5 MG/2 ML AMP INHALATION ×2 (08:55→19:58)
--- NOTE | 2020-01-15 11:23 | PM.EVENT ---
Event Note Event Note Event Note: I was consulted to see this nice gentleman for right hip pain. By the time I had gone into see him this morning, therapy had already work with him and he walked just fine. He has no hip complaints. He did bang up his right elbow a bit and likely just aggravated his arthritis. From an orthopedic standpoint there is really nothing to do. He and I talked and he understands this. No charge for visit.
--- NOTE | 2020-01-15 14:51 | PM.IMPN ---
Progress Note: A&P Assessment and Plan (1) Cellulitis of right leg: Code(s): L03.115 - Cellulitis of right lower limb Status: Acute Assessment and Plan: Admit to med-surg, Continue IV antibiotics. Blood cultures pending. Check RLE dopper U/S in am to rule out DVT. Pain control as needed. Antipyretics as needed. 01/15/20 14:51 patient is 74-year-old male with history of hypertension atrial fibrillation for which he is taking Eliquis was brought to emergency department after had fallen and was found on the floor, patient states on and off he feels dizzy and fall, he denies any associated symptoms of chest pain palpitation fever or chills, room is not moving, he just feels lightheaded, his legs are weak he falls, patient had CT scan of the head which was essentially normal for any acute injury, patient had x-ray of the shoulder, and hip and pelvis there is no acute bony fracture, to further evaluate patient had a cardiac echo and carotid ultrasound, carotid ultrasound is negative for any significant stenosis, cardiac echo is pending, patient is also found to have right lower extremity swelling tenderness and erythema, diagnosed with cellulitis being treated with clindamycin, had a lower extremity Doppler to rule out DVT which is negative. today patient states the pain in right leg is improved, however complains of pain in right elbow and painful to move, he also complains of loose bowel movement which are persisting for last 2 months he was seen at the [facility] and was told and further infectious but no detail, will do the stool culture, currently patient is on clindamycin for cellulitis, yesterday patient was having shortness of breath chest x-ray showed pneumonia patient is currently on clindamycin we added did throw mycin to cover for atypical, today patient is much more comfortable denies any cough shortness of breath fever or chills, will continue present management repeat chest x-ray tomorrow to further evaluate, right lower extremity cellulitis is improving. patient also complains of right elbow pain was seen by orthopedic surgeon does not need any surgical intervention continue conservative management. (2) Syncope and collapse: Code(s): R55 - Syncope and collapse Status: Acute Assessment and Plan: Continue IV hydration, TSH w/ reflex T4, fall precautions, Echocardiogram in am. Telemetry. patient cardiac echo is essentially normal with ejection fraction of 60%, patient has grade 1 diastolic dysfunction unlikely cardiac cause of syncope. (3) Leukocytosis: Code(s): D72.829 - Elevated white blood cell count, unspecified Status: Acute Assessment and Plan: Secondary to cellulitis. Monitor CBCd. (4) Hypertension: Qualifiers: Hypertension type: unspecified Qualified Code(s): I10 - Essential (primary) hypertension Code(s): I10 - Essential (primary) hypertension Status: Chronic Assessment and Plan: Monitor blood pressure. Resume home antihypertensives. (5) Atrial fibrillation: Qualifiers: Atrial fibrillation type: unspecified Qualified Code(s): I48.91 - Unspecified atrial fibrillation Code(s): I48.91 - Unspecified atrial fibrillation Status: Chronic Assessment and Plan: paroxysmal atrial fibrillation - currently in sinus rhythm. Subjective Date/time seen: 01/15/20 14:51 patient is 74-year-old male with history of hypertension atrial fibrillation for which he is taking Eliquis was brought to emergency department after had fallen and was found on the floor, patient states on and off he feels dizzy and fall, he denies any associated symptoms of chest pain palpitation fever or chills, room is not moving, he just feels lightheaded, his legs are weak he falls, patient had CT scan of the head which was essentially normal for any acute injury, patient had x-ray of the shoulder, and hip and pelvis there is no acute bony fra
[2020-01-16] VITALS (19 sets, daily range): BP systolic 130–141; BP diastolic 64–73; PULSE 67–90; RESP 18–20; TEMP 36.4–36.8; O2SAT 92–100
[2020-01-16] MEDS: IPRATROPIUM BR 0.02% INH SOLN 0.5 MG/2.5 ML VIAL INHALATION ×4 (01:55→19:23)
[2020-01-16] MEDS: CLINDAMYCIN 600 MG/NS 50 ML 600 MG/50 ML PIGGYBACK 100 MG IVPB ×3 (06:07→20:56)
[2020-01-16 06:51] LABS: Hematocrit 40.3 % (42.0-52.0); Hemoglobin 13.3 g/dL (14.0-18.0); Mean Corpuscular Hemoglobin 33.2 pg (26-34); Mean Corpuscular Volume 100.5 fl (80-100); Platelet Count Result 220 k/mm3 (150-375); Red Blood Count 4.01 M/mm3 (4.6-6.20); Red Cell Distribution Width 13.5 % (11.5-14.5); White Blood Count 8.6 K/mm3 (4.5-10.0)
[2020-01-16 07:06] LABS: Anion Gap 5 mmol/L (8-16); Blood Urea Nitrogen 21 mg/dL (9-20); Calcium 7.5 mg/dL (8.4-10.2); Carbon Dioxide 29 mmol/L (22-30); Chloride 104 mmol/L (98-107); Creatine Kinase 105 U/L (55-170); Estimated CRCL calculation 85 ml/min; Estimated Glomerular Filt Rate > 60; Glucose 96 mg/dL (75-110); Potassium 2.9 mmol/L (3.4-5.0); Sodium 138 mmol/L (137-145)
[2020-01-16] MEDS: BUDESONIDE RESPULE NEB 0.5 MG/2 ML AMP INHALATION ×2 (07:40→19:23)
[2020-01-16] MEDS: RIVAROXABAN 2.5 MG TABLET 5 MG PO (08:57)
[2020-01-16] MEDS: POTASSIUM CHLORIDE 20 MEQ TABLET 40 MEQ PO (08:58)
[2020-01-16] MEDS: BACITRACIN OINTMENT 15 GM TUBE 1 APPLIC TOPICAL (10:38)
--- NOTE | 2020-01-16 14:17 | PM.IMPN ---
Progress Note: A&P Assessment and Plan (1) Cellulitis of right leg: Code(s): L03.115 - Cellulitis of right lower limb Status: Acute Assessment and Plan: Admit to med-surg, Continue IV antibiotics. Blood cultures pending. Check RLE dopper U/S in am to rule out DVT. Pain control as needed. Antipyretics as needed. 01/16/20 14:17 patient is 74-year-old male with history of hypertension atrial fibrillation for which he is taking Eliquis was brought to emergency department after had fallen and was found on the floor, patient states on and off he feels dizzy and fall, he denies any associated symptoms of chest pain palpitation fever or chills, room is not moving, he just feels lightheaded, his legs are weak he falls, patient had CT scan of the head which was essentially normal for any acute injury, patient had x-ray of the shoulder, and hip and pelvis there is no acute bony fracture, to further evaluate patient had a cardiac echo and carotid ultrasound, carotid ultrasound is negative for any significant stenosis, cardiac echo is pending, patient is also found to have right lower extremity swelling tenderness and erythema, diagnosed with cellulitis being treated with clindamycin, had a lower extremity Doppler to rule out DVT which is negative. today patient states the pain in right leg is improved, however complains of pain in right elbow and painful to move, he also complains of loose bowel movement which are persisting for last 2 months he was seen at the [facility] and was told and further infectious but no detail, will do the stool culture, currently patient is on clindamycin for cellulitis, yesterday patient was having shortness of breath chest x-ray showed pneumonia patient is currently on clindamycin we added did throw mycin to cover for atypical, today patient is much more comfortable denies any cough shortness of breath fever or chills, chest x-ray done today shows slight improvement in pneumonia will continue present management repeat chest x-ray again on Saturday to further evaluate, right lower extremity cellulitis is improving. patient also had complained of right elbow pain was seen by orthopedic surgeon does not need any surgical intervention continue conservative management. will have a PT OT evaluate the patient and further recommendation to follow (2) Syncope and collapse: Code(s): R55 - Syncope and collapse Status: Acute Assessment and Plan: Continue IV hydration, TSH w/ reflex T4, fall precautions, Echocardiogram in am. Telemetry. patient cardiac echo is essentially normal with ejection fraction of 60%, patient has grade 1 diastolic dysfunction unlikely cardiac cause of syncope. (3) Leukocytosis: Code(s): D72.829 - Elevated white blood cell count, unspecified Status: Acute Assessment and Plan: Secondary to cellulitis. Monitor CBCd. (4) Hypertension: Qualifiers: Hypertension type: unspecified Qualified Code(s): I10 - Essential (primary) hypertension Code(s): I10 - Essential (primary) hypertension Status: Chronic Assessment and Plan: Monitor blood pressure. Resume home antihypertensives. (5) Atrial fibrillation: Qualifiers: Atrial fibrillation type: unspecified Qualified Code(s): I48.91 - Unspecified atrial fibrillation Code(s): I48.91 - Unspecified atrial fibrillation Status: Chronic Assessment and Plan: paroxysmal atrial fibrillation - currently in sinus rhythm. Subjective Date/time seen: 01/16/20 14:17 patient is 74-year-old male with history of hypertension atrial fibrillation for which he is taking Eliquis was brought to emergency department after had fallen and was found on the floor, patient states on and off he feels dizzy and fall, he denies any associated symptoms of chest pain palpitation fever or chills, room is not moving, he just feels lightheaded, his legs are weak he falls, patient had CT
[2020-01-16 15:11] LABS: Anion Gap 7 mmol/L (8-16); Blood Urea Nitrogen 21 mg/dL (9-20); Calcium 7.8 mg/dL (8.4-10.2); Carbon Dioxide 26 mmol/L (22-30); Chloride 103 mmol/L (98-107); Estimated CRCL calculation 96 ml/min; Estimated Glomerular Filt Rate > 60; Glucose 184 mg/dL (75-110); Magnesium 2.3 mg/dL (1.6-2.3); Potassium 3.5 mmol/L (3.4-5.0); Sodium 136 mmol/L (137-145)
[2020-01-17] VITALS (17 sets, daily range): BP systolic 138–151; BP diastolic 73–79; PULSE 56–130; RESP 16–20; TEMP 36.6–37; O2SAT 92–98
[2020-01-17 00:03] LABS: SARS-CoV-2 RNA PCR Negative
[2020-01-17] MEDS: IPRATROPIUM BR 0.02% INH SOLN 0.5 MG/2.5 ML VIAL INHALATION ×4 (02:15→19:54)
[2020-01-17] MEDS: CLINDAMYCIN 600 MG/NS 50 ML 600 MG/50 ML PIGGYBACK 100 MG IVPB ×3 (06:15→22:17)
[2020-01-17 06:31] LABS: Hematocrit 41.9 % (42.0-52.0); Hemoglobin 13.8 g/dL (14.0-18.0); Mean Corpuscular HGB Conc 32.9 g/dl (32-36); Mean Corpuscular Hemoglobin 33.1 pg (26-34); Mean Corpuscular Volume 100.5 fl (80-100); Mean Platelet Volume 10.5 fl (7.4-10.4); Platelet Count Result 242 k/mm3 (150-375); Red Blood Count 4.17 M/mm3 (4.6-6.20); White Blood Count 10.1 K/mm3 (4.5-10.0)
[2020-01-17 06:42] LABS: Anion Gap 7 mmol/L (8-16); Blood Urea Nitrogen 17 mg/dL (9-20); Calcium 7.7 mg/dL (8.4-10.2); Carbon Dioxide 26 mmol/L (22-30); Chloride 105 mmol/L (98-107); Creatine Kinase 88 U/L (55-170); Estimated CRCL calculation 130 ml/min; Estimated Glomerular Filt Rate > 60; Glucose 97 mg/dL (75-110); Potassium 3.2 mmol/L (3.4-5.0); Sodium 138 mmol/L (137-145)
[2020-01-17] MEDS: BUDESONIDE RESPULE NEB 0.5 MG/2 ML AMP INHALATION ×2 (08:13→19:53)
[2020-01-17] MEDS: RIVAROXABAN 2.5 MG TABLET 5 MG PO (08:59)
[2020-01-17] MEDS: POTASSIUM CHLORIDE 20 MEQ TABLET 40 MEQ PO (08:59)
--- NOTE | 2020-01-17 15:42 | PM.IMPN ---
Progress Note: A&P Assessment and Plan (1) Cellulitis of right leg: Code(s): L03.115 - Cellulitis of right lower limb Status: Acute Assessment and Plan: Admit to med-surg, Continue IV antibiotics. Blood cultures pending. Check RLE dopper U/S in am to rule out DVT. Pain control as needed. Antipyretics as needed. 01/17/20 15:42 patient is 74-year-old male with history of hypertension atrial fibrillation for which he is taking Eliquis was brought to emergency department after had fallen and was found on the floor, patient states on and off he feels dizzy and fall, he denies any associated symptoms of chest pain palpitation fever or chills, room is not moving, he just feels lightheaded, his legs are weak he falls, patient had CT scan of the head which was essentially normal for any acute injury, patient had x-ray of the shoulder, and hip and pelvis there is no acute bony fracture, to further evaluate patient had a cardiac echo and carotid ultrasound, carotid ultrasound is negative for any significant stenosis, cardiac echo is pending, patient is also found to have right lower extremity swelling tenderness and erythema, diagnosed with cellulitis being treated with clindamycin, had a lower extremity Doppler to rule out DVT which is negative. today patient states the pain in right leg is improved, however complains of pain in right elbow and painful to move, he also complains of loose bowel movement which are persisting for last 2 months he was seen at the [facility] and was told and further infectious but no detail, will do the stool culture, currently patient is on clindamycin for cellulitis, yesterday patient was having shortness of breath chest x-ray showed pneumonia patient is currently on clindamycin we added did throw mycin to cover for atypical, today patient is much more comfortable denies any cough shortness of breath fever or chills, chest x-ray done today shows slight improvement in pneumonia will continue present management repeat chest x-ray again on Saturday to further evaluate, right lower extremity cellulitis is improving. patient also had complained of right elbow pain was seen by orthopedic surgeon does not need any surgical intervention continue conservative management. will have a PT OT evaluate the patient and further recommendation to follow today patient has no new complete repeat x-ray tomorrow and if clinically stable will discharge the patient to halfway. (2) Syncope and collapse: Code(s): R55 - Syncope and collapse Status: Acute Assessment and Plan: Continue IV hydration, TSH w/ reflex T4, fall precautions, Echocardiogram in am. Telemetry. patient cardiac echo is essentially normal with ejection fraction of 60%, patient has grade 1 diastolic dysfunction unlikely cardiac cause of syncope. (3) Leukocytosis: Code(s): D72.829 - Elevated white blood cell count, unspecified Status: Acute Assessment and Plan: Secondary to cellulitis. Monitor CBCd. (4) Hypertension: Qualifiers: Hypertension type: unspecified Qualified Code(s): I10 - Essential (primary) hypertension Code(s): I10 - Essential (primary) hypertension Status: Chronic Assessment and Plan: Monitor blood pressure. Resume home antihypertensives. (5) Atrial fibrillation: Qualifiers: Atrial fibrillation type: unspecified Qualified Code(s): I48.91 - Unspecified atrial fibrillation Code(s): I48.91 - Unspecified atrial fibrillation Status: Chronic Assessment and Plan: paroxysmal atrial fibrillation - currently in sinus rhythm. Subjective Date/time seen: 01/17/20 15:42 patient is 74-year-old male with history of hypertension atrial fibrillation for which he is taking Eliquis was brought to emergency department after had fallen and was found on the floor, patient states on and off he feels dizzy and fall, he denies any associated symptoms of chest p
[2020-01-18] VITALS (32 sets, daily range): BP systolic 103–140; BP diastolic 64–93; PULSE 81–160; RESP 16–26; TEMP 35.6–37.2; O2SAT 94–98
--- NOTE | 2020-01-18 01:55 | ECG_ITS ---
Measurements Intervals [place] Rate: 143 P: [place]: 0 QRS: 19 QRSD: 128 T: -14 QT: 309 QTc: 478 Interpretive Statements ATRIAL FIBRILLATION WITH RAPID VENTRICULAR RESPONSE VENTRICULAR PREMATURE COMPLEXES RIGHT BUNDLE BRANCH BLOCK BASELINE ARTIFACT- III ABNORMAL ECG Electronically Signed On 01-18-2020 7:01:05 CDT by Hermelindo Mauro D.O.
[2020-01-18] MEDS: METOPROLOL TARTRATE INJ 5 MG/5 ML VIAL IV PUSH ×2 (02:12→03:52)
--- NOTE | 2020-01-18 03:52 | PC.NURSE ---
pt received x 1 dose of ivp metoprolol and dis slow hr from 160s to 130, b/p 139/89 md notified and received orders for 2nd dose of ivp metoprolol now.
--- NOTE | 2020-01-18 05:14 | PM.EVENT ---
Event Note Event Note Event Note: I had received a call from nursing staff that the patient had flipped in AFib RVR with rate of 150. Stat EKG confirm this. The patient does have a history of atrial fibrillation but had previously been in sinus rhythm. The patient was reporting indigestion and indicated discomfort in his epigastric region. The patient's systolic blood pressures were 140. In dose of IV Lopressor was given in his heart rate improved down to 130. About an hour later the patient's heart rate was still bouncing up as high as the 130s. A 2nd dose of IV Lopressor was given and the patient's heart rate improved down to 120. The patient was still having symptoms of indigestion. Patient will be transferred to IMU and given a Cardizem bolus of 10 mg and Cardizem drip at 5 mg an hour.
--- NOTE | 2020-01-18 05:48 | PC.NURSE ---
gave report to allyn rn, pt going to room 206, imu
[2020-01-18] MEDS: CLINDAMYCIN 600 MG/NS 50 ML 600 MG/50 ML PIGGYBACK 100 MG IVPB ×3 (06:02→20:53)
[2020-01-18] MEDS: dilTIAZem HCl INJ 25 MG/5 ML VIAL 10 MG IV PUSH (06:03)
--- NOTE | 2020-01-18 06:16 | PC.NURSE ---
0600 pt leaves floor with all belongings via hospital bed.
--- NOTE | 2020-01-18 06:53 | PC.NURSE ---
Pt arrived approx 0600 01/18/2020
[2020-01-18 07:28] LABS: Hematocrit 45.5 % (42.0-52.0); Hemoglobin 14.9 g/dL (14.0-18.0); Mean Corpuscular HGB Conc 32.7 g/dl (32-36); Mean Corpuscular Hemoglobin 32.8 pg (26-34); Mean Corpuscular Volume 100.2 fl (80-100); Mean Platelet Volume 10.6 fl (7.4-10.4); Platelet Count Result 286 k/mm3 (150-375); Red Blood Count 4.54 M/mm3 (4.6-6.20); Red Cell Distribution Width 13.9 % (11.5-14.5); White Blood Count 13.9 K/mm3 (4.5-10.0)
[2020-01-18 07:46] LABS: Potassium 3.1 mmol/L (3.4-5.0)
[2020-01-18 07:59] LABS: Anion Gap 8 mmol/L (8-16); Blood Urea Nitrogen 12 mg/dL (9-20); Carbon Dioxide 25 mmol/L (22-30); Chloride 105 mmol/L (98-107); Creatine Kinase 62 U/L (55-170); Estimated CRCL calculation 130 ml/min; Estimated Glomerular Filt Rate > 60; Glucose 112 mg/dL (75-110); Sodium 138 mmol/L (137-145)
[2020-01-18 08:10] LABS: Troponin I < 0.012 ng/mL (0.000-0.034)
--- NOTE | 2020-01-18 08:16 | PCOTNOTE ---
Spoke to RN, ok to continue Occupational Therapy at this time, will re-assess safety for placement.
--- NOTE | 2020-01-18 08:20 | PCPTNOTE ---
Patient medically stable to continue to be seen by physical therapy. will continue to assess for location for safe discharge.
[2020-01-18] MEDS: IPRATROPIUM BR 0.02% INH SOLN 0.5 MG/2.5 ML VIAL INHALATION ×3 (08:47→21:17)
[2020-01-18] MEDS: BUDESONIDE RESPULE NEB 0.5 MG/2 ML AMP INHALATION ×2 (08:47→21:17)
[2020-01-18 09:20] LABS: Magnesium 2.2 mg/dL (1.6-2.3)
[2020-01-18] MEDS: POTASSIUM CHLORIDE 20 MEQ TABLET 40 MEQ PO (09:22)
[2020-01-18] MEDS: RIVAROXABAN 2.5 MG TABLET 5 MG PO (09:23)
[2020-01-18 10:25] LABS: Troponin I < 0.012 ng/mL (0.000-0.034)
--- NOTE | 2020-01-18 11:10 | PM.CNCAR ---
Assessment and Plan Additional Plan 74-year-old man who apparently has a history of paroxysmal atrial fibrillation he entered the hospital after falling and had some cellulitis in the lower extremity. He has and he asymptomatic or minimally symptomatic recurrence of atrial fib as of this morning and in this setting we are asked to see him in consultation. He has had no real clinical response to IV of diltiazem at this time. I am going to recommend stopping the IV diltiazem and starting him on sotalol. I will also advance his Xarelto to therapeutic dosage. Follow him with you while he is in the hospital and assess his response to this. Willie Herrera MD [facility] History of Present Illness History of Present Illness Consult date/time: date of service:01/18/20 11:10 Consult reason: atrial fibrillation Reason For Visit: frequent falls, right leg cellulitis, weakness Narrative: This is a 74-year-old man who was admitted to the hospital here several days ago after taking a fall at home. He was found to have some right lower extremity cellulitis and generalized weakness and was admitted for observation and treatment. The patient has a history of atrial fibrillation and receives his general medical care and cardiology care at the [facility]. His electrocardiograms on admission demonstrated sinus rhythm and apparently earlier this morning he reverted into atrial fib with rapid ventricular response with which she was essentially asymptomatic. He was of course started on IV diltiazem transferred to the IMU and in this setting we have been consulted to see him. Patient is in no distress and is very slightly aware of his tachycardia but does not seem to have any other symptomatology to be associated with this. His heart rate is still 150 beats per minute despite the diltiazem and he is hemodynamically stable. The patient states he was on some medicine for his atrial fib in the past can't remember what the drug was and states that his physicians at the [facility] of stopped for reasons that he cannot recall. For some reason he is taking of very low-dose of Xarelto at 5 mg per day. In this setting we are asked to see him in consultation. He denies any chest pain pressure heaviness or shortness of breath at the current time. He is sitting up in his bed having of the session with physical therapy when I came in the room to see him. Review of Systems Constitutional: Constitutional: Reports no additional constitutional complaints Eyes: Eyes: Reports no additional eye complaints ENT: Reports system reviewed and no additional complaints, except as documented Cardiovascular: Cardiovascular: Reports no additional cardiovascular complaints Respiratory: Respiratory: Reports no additional respiratory complaints Gastrointestinal: Gastrointestinal: Reports no additional gastrointestinal complaints Genitourinary: Genitourinary: Reports no additional male genitourinary complaints Musculoskeletal: Musculoskeletal: Reports no additional musculoskeletal complaints Integumentary/Breasts: Skin/Breast: Reports system reviewed and no additional complaints, except as docu Neurologic: Reports system reviewed and no additional complaints, except as documented Psychiatric: Psychiatric: Reports no additional psychiatric complaints Endocrine: Endocrine: Reports no additional endocrine complaints Hematologic/Lymphatic: Hematologic/Lymphatic: Reports no additional hematologic/lymphatic complaints Allergic/Immunologic: Allergic/Immunologic: Reports no additional allergic/immunologic complaints PMFSH Past Medical History Medical History Atrial fibrillation Hypertension Family History Family History Sibling Hypertension Patient's brother is in good health Father Family history of lung cancer Patient's father is Mother
[2020-01-18] MEDS: SOTALOL HCL 80 MG TABLET PO ×2 (12:36→20:54)
[2020-01-18] MEDS: LOPERAMIDE HCL 2 MG CAPSULE PO (12:39)
--- NOTE | 2020-01-18 12:41 | PC.NURSE ---
Ended Diltiazem at 12:40 and gave first dose of Sotolol.
[2020-01-18 13:22] LABS: Troponin I < 0.012 ng/mL (0.000-0.034)
[2020-01-18] MEDS: PANTOPRAZOLE SODIUM IV 40 MG VIAL IV PUSH ×2 (13:29→20:54)
--- NOTE | 2020-01-18 13:36 | PCDIET ---
Nutrition Follow-Up Complete: Nutrition Diagnosis: Inadequate oral intake related to left knee hematoma as related to poor po intake and weight loss of 15 lbs in the past 3 months. Nutrition Goal: Intake of at least 75% of meals/supplements. Goal in progress. Patient previously consuming 75-100% of meals on heart healthy diet, but refused past two meals with c/o cramping . Discussed with RN. Patient receiving Loperamide and Protonix. Patient does like Ensure Compact and would like to continue receiving it with meals BID. Last recorded weight is 99.3 kg. Recommend obtaining new weight. Bowel Motility: BM x 1 today. Labs Reviewed: Glu (112), K (3.1), Ca (8.0) Meds Noted: Clindamycin, Protonix, Atrovent, KCl, Loperamide Additional Notes: Documented maceration to coccyx. No new recommendations at this time. Will continue to monitor with same goal. Nutrition Monitoring and Evaluation: Follow up every 5 days.
[2020-01-18 15:35] LABS: Anion Gap 6 mmol/L (8-16); Blood Urea Nitrogen 13 mg/dL (9-20); Calcium 7.8 mg/dL (8.4-10.2); Carbon Dioxide 25 mmol/L (22-30); Chloride 106 mmol/L (98-107); Estimated CRCL calculation 130 ml/min; Estimated Glomerular Filt Rate > 60; Glucose 102 mg/dL (75-110); Potassium 3.4 mmol/L (3.4-5.0); Sodium 137 mmol/L (137-145)
--- NOTE | 2020-01-18 16:48 | PM.IMPN ---
Progress Note: A&P Assessment and Plan (1) Cellulitis of right leg: Code(s): L03.115 - Cellulitis of right lower limb Status: Acute Assessment and Plan: Admit to med-surg, Continue IV antibiotics. Blood cultures pending. Check RLE dopper U/S in am to rule out DVT. Pain control as needed. Antipyretics as needed. 01/18/20 16:48 patient is 74-year-old male with history of hypertension atrial fibrillation for which he is taking Eliquis was brought to emergency department after had fallen and was found on the floor, patient states on and off he feels dizzy and fall, he denies any associated symptoms of chest pain palpitation fever or chills, room is not moving, he just feels lightheaded, his legs are weak he falls, patient had CT scan of the head which was essentially normal for any acute injury, patient had x-ray of the shoulder, and hip and pelvis there is no acute bony fracture, to further evaluate patient had a cardiac echo and carotid ultrasound, carotid ultrasound is negative for any significant stenosis, cardiac echo is pending, patient is also found to have right lower extremity swelling tenderness and erythema, diagnosed with cellulitis being treated with clindamycin, had a lower extremity Doppler to rule out DVT which is negative. today patient states the pain in right leg is improved, however complains of pain in right elbow and painful to move, he also complains of loose bowel movement which are persisting for last 2 months he was seen at the [facility] and was told and further infectious but no detail, will do the stool culture, currently patient is on clindamycin for cellulitis, yesterday patient was having shortness of breath chest x-ray showed pneumonia patient is currently on clindamycin we added did throw mycin to cover for atypical, today patient is much more comfortable denies any cough shortness of breath fever or chills, chest x-ray done today shows slight improvement in pneumonia will continue present management repeat chest x-ray again on Saturday to further evaluate, right lower extremity cellulitis is improving. patient also had complained of right elbow pain was seen by orthopedic surgeon does not need any surgical intervention continue conservative management. will have a PT OT evaluate the patient and further recommendation to follow, patient with history of proximal atrial fibrillation early today patient went into atrial fibrillation with RVR was started on diltiazem drip and transferred to IMU while on the drip patient heart rate was persisting about 100 patient was seen by medical receptionist biller recommended to stop the diltiazem drip and started the patient on sotalol, repeat chest x-ray still shows persistent pneumonia, patient clinically is feeling better denies any fever or chill, will continue present management will continue to monitor heart rate and repeat checks x-ray in 2 days, (2) Syncope and collapse: Code(s): R55 - Syncope and collapse Status: Acute Assessment and Plan: Continue IV hydration, TSH w/ reflex T4, fall precautions, Echocardiogram in am. Telemetry. patient cardiac echo is essentially normal with ejection fraction of 60%, patient has grade 1 diastolic dysfunction unlikely cardiac cause of syncope. (3) Leukocytosis: Code(s): D72.829 - Elevated white blood cell count, unspecified Status: Acute Assessment and Plan: Secondary to cellulitis. Monitor CBCd. (4) Hypertension: Qualifiers: Hypertension type: unspecified Qualified Code(s): I10 - Essential (primary) hypertension Code(s): I10 - Essential (primary) hypertension Status: Chronic Assessment and Plan: Monitor blood pressure. Resume home antihypertensives. (5) Atrial fibrillation: Qualifiers: Atrial fibrillation type: unspecified Qualified Code(s): I48.91 - Unspecified atrial fibrillation Code(s): I48.91 - Unspecified atrial fibrillation Status:
[2020-01-18] MEDS: RIVAROXABAN 20 MG TABLET PO (18:08)
[2020-01-19] VITALS (27 sets, daily range): BP systolic 122–153; BP diastolic 76–96; PULSE 77–145; RESP 16–22; TEMP 35.7–36.7; O2SAT 93–96
[2020-01-19] MEDS: IPRATROPIUM BR 0.02% INH SOLN 0.5 MG/2.5 ML VIAL INHALATION ×4 (02:57→19:58)
[2020-01-19 04:47] LABS: Hematocrit 45.7 % (42.0-52.0); Mean Corpuscular HGB Conc 32.8 g/dl (32-36); Mean Corpuscular Hemoglobin 32.8 pg (26-34); Mean Corpuscular Volume 99.8 fl (80-100); Mean Platelet Volume 10.4 fl (7.4-10.4); Platelet Count Result 252 k/mm3 (150-375); Red Blood Count 4.58 M/mm3 (4.6-6.20); White Blood Count 12.3 K/mm3 (4.5-10.0)
[2020-01-19 05:01] LABS: Anion Gap 7 mmol/L (8-16); Blood Urea Nitrogen 15 mg/dL (9-20); Carbon Dioxide 25 mmol/L (22-30); Chloride 105 mmol/L (98-107); Creatine Kinase 50 U/L (55-170); Estimated CRCL calculation 110 ml/min; Estimated Glomerular Filt Rate > 60; Glucose 134 mg/dL (75-110); Potassium 3.2 mmol/L (3.4-5.0); Sodium 137 mmol/L (137-145)
[2020-01-19] MEDS: CLINDAMYCIN 600 MG/NS 50 ML 600 MG/50 ML PIGGYBACK 100 MG IVPB ×2 (05:24→15:00)
[2020-01-19] MEDS: ONDANSETRON INJ 4 MG/2 ML VIAL IV PUSH ×2 (06:10→08:36)
[2020-01-19] MEDS: dilTIAZem HCl INJ 25 MG/5 ML VIAL 10 MG IV PUSH (06:12)
--- NOTE | 2020-01-19 07:53 | PM.PNCARD ---
Progress Note: A&P Assessment and Plan (1) Atrial fibrillation: Qualifiers: Atrial fibrillation type: unspecified Qualified Code(s): I48.91 - Unspecified atrial fibrillation Code(s): I48.91 - Unspecified atrial fibrillation Status: Chronic Assessment and Plan: Remains in a fib w/ increased HR this a.m. Started back on CArdizem gtt; will increase to 10mg/hr Cont sotalol, Xarelto (2) Abdominal pain: Code(s): R10.9 - Unspecified abdominal pain Status: Acute Assessment and Plan: C/O abdominal painand diarrhea; abdo distended w/ some tympany. May need further evaluation. (3) Cellulitis of right leg: Code(s): L03.115 - Cellulitis of right lower limb Status: Acute Assessment and Plan: On antibiotics, care per hospitalists. (4) Hypokalemia: Code(s): E87.6 - Hypokalemia Status: Acute Assessment and Plan: Will supplement Subjective Date/time seen: 01/19/20 07:53 Interval history: 74-year-old man who apparently has a history of paroxysmal atrial fibrillation he entered the hospital after falling and had some cellulitis in the lower extremity. He was admitted in [facility] but developed a fib RVR during his hospital stay. He is asymptomatic or minimally symptomatic. 01/18/2020 stopped the IV diltiazem and started him on sotalol and advanced his Xarelto to therapeutic dosage. Echo showed EF 60-65%, no significant valve stenosis/regurg. Date of service:01/19/2020 Patient remained in AFib overnight but early this morning heart rate was up to the 130s so started back on the Cardizem drip with 10 mg bolus and 5 milligram/hour drip. AFib rate is a little better, 120. He is complaining of lower abdominal cramps. No diarrhea overnight. Some nausea, vomited x1. No chest pain or shortness of breath. Review of Systems Constitutional: Constitutional: Reports fatigue Eyes: Eyes: Reports no additional eye complaints ENT: Denies epistaxis Cardiovascular: Cardiovascular: Denies chest pain, Denies pedal edema and Denies leg edema Respiratory: Respiratory: Denies cough and Denies dyspnea Gastrointestinal: Gastrointestinal: Reports abdominal pain, Denies hematochezia and Reports diarrhea Genitourinary: Genitourinary: Denies dysuria Musculoskeletal: Musculoskeletal: Denies back pain Neurologic: Denies headache(s) Psychiatric: Psychiatric: Denies confusion Exam Const: General: no acute distress and uncomfortable Other: Elderly male, breathing comfortably but appears to feel poorly. HENMT: General nose exam: Epistaxis present Eyes: EOM: EOMs intact bilaterally Neck: Neck: supple Resp: Effort & Inspection: normal respiratory effort Auscultation: clear to auscultation bilaterally Cardio: Rate: tachycardic Rhythm: abnormal rhythm irregularly irregular GI: Inspection: distended Auscultation: normal bowel sounds Other: Tympanitic, soft and nontender. : Male General Exam: Yes normal external exam Neuro: Speech: normal speech Motor exam (neuro): Normal motor muscle tone present throughout Extrem: General: no edema Psych: Mental Status: mental status grossly normal ( though a little slow to respond to questions.) Objective Data Vital Signs Vital Signs: Vital Signs - 24 hr 01/18/20 08:00 01/18/20 08:50 01/18/20 08:58 Temperature Pulse Rate 133 H 115 H 121 H Respiratory Rate 24 H 26 H Blood Pressure Pulse Oximetry 96 01/18/20 10:00 01/18/20 11:54 01/18/20 12:00 Temperature 96.1 F L Pulse Rate 131 H 104 H 111 H Respiratory Rate 18 Blood Pressure 103/76 Pulse Oximetry 98 01/18/20 12:36 01/18/20 14:00 01/18/20 14:35 Temperature Pulse Rate 140 H 102 H 105 H Respiratory Rate 20 Blood Pressure Pulse Oximetry
[2020-01-19] MEDS: SOTALOL HCL 80 MG TABLET PO ×2 (08:29→20:41)
[2020-01-19] MEDS: PANTOPRAZOLE SODIUM IV 40 MG VIAL IV PUSH ×2 (08:29→20:43)
[2020-01-19] MEDS: BUDESONIDE RESPULE NEB 0.5 MG/2 ML AMP INHALATION ×2 (08:48→19:59)
--- NOTE | 2020-01-19 09:27 | PCPTNOTE ---
Patient refused treatment this session due to being tired.
--- NOTE | 2020-01-19 11:07 | PCOTNOTE ---
Upon arrival practitioner experienced difficulty rousing patient. When patient woke up he declined to participate in therapy session this date 01/19/2020.
[2020-01-19] MEDS: SODIUM CHLORIDE 0.9% IV 1,000 ML 100 ML IV CONT (11:52)
[2020-01-19 12:22] LABS: Lactic Acid 1.3 mmol/L (0.7-2.1)
--- NOTE | 2020-01-19 14:59 | PCPTNOTE ---
Attempted to see patient for PT this date, however unable to see patient. Per RN: asked if PT could wait on therapy, that patient is to be getting a NG tube put in and going down for X-ray.
--- NOTE | 2020-01-19 17:23 | PM.IMPN ---
Progress Note: A&P Assessment and Plan (1) Cellulitis of right leg: Code(s): L03.115 - Cellulitis of right lower limb Status: Acute Assessment and Plan: Admit to med-surg, Continue IV antibiotics. Blood cultures pending. Check RLE dopper U/S in am to rule out DVT. Pain control as needed. Antipyretics as needed. (2) Syncope and collapse: Code(s): R55 - Syncope and collapse Status: Acute Assessment and Plan: Continue IV hydration, TSH w/ reflex T4, fall precautions, Echocardiogram in am. Telemetry. Cardiac echo is essentially normal with ejection fraction of 60%, patient has grade 1 diastolic dysfunction unlikely cardiac cause of syncope. (3) Leukocytosis: Code(s): D72.829 - Elevated white blood cell count, unspecified Status: Acute Assessment and Plan: Secondary to cellulitis. Monitor CBCd. (4) Hypertension: Qualifiers: Hypertension type: unspecified Qualified Code(s): I10 - Essential (primary) hypertension Code(s): I10 - Essential (primary) hypertension Status: Chronic Assessment and Plan: Monitor blood pressure. Resume home antihypertensives. (5) Atrial fibrillation: Qualifiers: Atrial fibrillation type: unspecified Qualified Code(s): I48.91 - Unspecified atrial fibrillation Code(s): I48.91 - Unspecified atrial fibrillation Status: Chronic Assessment and Plan: Paroxysmal atrial fibrillation, cardiology rounding (6) Abdominal pain: Code(s): R10.9 - Unspecified abdominal pain Status: Acute Assessment and Plan: Pt having abdominal pain and distension KUB and CT ordered NG tube passed. to relief gaseous distension Subjective Date/time seen: 01/19/20 17:23 Interval history: 74-year-old male with history of hypertension atrial fibrillation for which he is taking Eliquis was brought to emergency department after pt had fallen and was found on the floor, today pts abdomen is distended. Pt had KUB and CT abdomen. Pt had NG tube passed because of gaseous distension. Review of Systems Review of Systems: ROS unobtainable: Yes unobtainable due to medical condition Exam Narrative: Exam Narrative: elderly frail Resp: Effort & Inspection: normal respiratory effort Auscultation: clear to auscultation bilaterally Other: bilateral fair air entry with rhonchi Cardio: Rate: regular rate Rhythm: regular rhythm Heart sounds: no murmurs Other: irregularly irregular Skin: General skin exam: normal color and erythema (Extending from the right knee down to the foot++ Hot to touch++ ) Objective Data Vital Signs Vital Signs: Vital Signs - 24 hr 01/18/20 18:00 01/18/20 19:56 01/18/20 20:00 Temperature 36.6 C Pulse Rate 119 H 92 114 H Respiratory Rate 20 Blood Pressure 116/76 Pulse Oximetry 95 01/18/20 20:54 01/18/20 21:17 01/18/20 21:20 Temperature Pulse Rate 120 H 89 89 Respiratory Rate 20 20 Blood Pressure Pulse Oximetry 95 01/18/20 21:28 01/18/20 22:00 01/18/20 23:30 Temperature 36.6 C Pulse Rate 101 H 110 H 111 H Respiratory Rate 20 22 H Blood Pressure 134/72 Pulse Oximetry 97 01/19/20 00:00 01/19/20 01:20 01/19/20 02:57 Temperature Pulse Rate 119 H 122 H 119 H Respiratory Rate 20 Blood Pressure Pulse Oximetry 01/19/20 03:06 01/19/20 03:37 01/19/20 04:00 Temperature 36.4 C L Pulse Rate 107 H 122 H 132 H Respiratory Rate 20 20 Blood Pressure 153/76 H Pulse Oximetry 93 01/19/20 06:00 01/19/20 06:11 01/19/20 08:00 Temperature 36.3 C L Pulse Rate 139 H 144 H 126 H Respiratory Rate 22 H Blood Pressure 122/92 H 122/92 H Pulse Oximetry 95 01/19/20 08:29 01/19/20 08:48 01/19/20 08:49 Temperature Pulse Rate 127 H 141 H 141 H Respiratory Rate 20 20 Blood Pressure Pulse Oximetry 94 01/19/20 08:55 01/19/20 08:57 01/19/20 10:00 Temperature Pulse Rate 139 H 144 H 119 H
[2020-01-19] MEDS: ENOXAPARIN 100 MG/ML SYRINGE SUB-Q (20:42)
[2020-01-19] MEDS: CLINDAMYCIN 600 MG/NS 50 ML 600 MG/50 ML PIGGYBACK 50 MG IVPB (20:47)
[2020-01-20] VITALS (28 sets, daily range): BP systolic 110–153; BP diastolic 65–76; PULSE 44–110; RESP 16–20; TEMP 36.2–36.7; O2SAT 91–99
[2020-01-20] MEDS: IPRATROPIUM BR 0.02% INH SOLN 0.5 MG/2.5 ML VIAL INHALATION ×4 (02:22→19:22)
[2020-01-20] MEDS: CLINDAMYCIN 600 MG/NS 50 ML 600 MG/50 ML PIGGYBACK 50 MG IVPB ×2 (04:27→13:03)
[2020-01-20] MEDS: SODIUM CHLORIDE 0.9% IV 1,000 ML 100 ML IV CONT ×2 (08:10→17:36)
[2020-01-20] MEDS: BUDESONIDE RESPULE NEB 0.5 MG/2 ML AMP INHALATION ×2 (09:12→19:22)
[2020-01-20] MEDS: SOTALOL HCL 80 MG TABLET PO ×2 (09:20→21:08)
[2020-01-20] MEDS: ENOXAPARIN 100 MG/ML SYRINGE SUB-Q ×2 (09:20→21:07)
[2020-01-20] MEDS: PANTOPRAZOLE SODIUM IV 40 MG VIAL IV PUSH ×2 (09:21→21:07)
--- NOTE | 2020-01-20 11:30 | ECG_ITS ---
Measurements Intervals [place] Rate: 54 P: 9 [place]: 144 QRS: 3 QRSD: 134 T: -9 QT: 490 QTc: 468 Interpretive Statements SINUS BRADYCARDIA RIGHT BUNDLE BRANCH BLOCK ABNORMAL ECG Electronically Signed On 01-20-2020 10:42:18 CDT by Hermelindo Mauro D.O.
--- NOTE | 2020-01-20 12:52 | PM.PNCARD ---
Progress Note: A&P Assessment and Plan (1) Atrial fibrillation: Qualifiers: Atrial fibrillation type: unspecified Qualified Code(s): I48.91 - Unspecified atrial fibrillation Code(s): I48.91 - Unspecified atrial fibrillation Status: Resolved Assessment and Plan: PAF, converted to sinus rhythm 01/20/2020 Cont sotalol, Lovenox; resume Xarelto when ileus resolves. Will need to daily check QT interval for the next few days since sotalol is a new medication. EKG on my personal review shows NSR rate 74, QTC 478 milliseconds, acceptable. (2) Abdominal pain: Code(s): R10.9 - Unspecified abdominal pain Status: Acute Assessment and Plan: C/O abdominal painand diarrhea; abdo distended w/ some tympany. has an NG tube for ileus. (3) Cellulitis of right leg: Code(s): L03.115 - Cellulitis of right lower limb Status: Acute Assessment and Plan: On antibiotics, care per hospitalists. (4) Hypokalemia: Code(s): E87.6 - Hypokalemia Status: Acute Assessment and Plan: Supplemented Yesterday will supplement again today w/ 40 mEq IV. Mag++ is WNL Daily BMP Additional Plan Subjective Date/time seen: 01/20/20 12:52 Interval history: 74-year-old man who apparently has a history of paroxysmal atrial fibrillation he entered the hospital after falling and had some cellulitis in the lower extremity. Also has an ileus.He was admitted in NSR but developed a fib RVR during his hospital stay. He is asymptomatic or minimally symptomatic. 01/18/2020 stopped the IV diltiazem and started him on sotalol and advanced his Xarelto to therapeutic dosage; held 2nd ileus. Converted to NSR on 01/20/2020. Echo showed EF 60-65%, no significant valve stenosis/regurg. 01/19/2020 Patient remained in AFib overnight but early this morning heart rate was up to the 130s so started back on the Cardizem drip with 10 mg bolus and 5 milligram/hour drip. AFib rate is a little better, 120. He is complaining of lower abdominal cramps. No diarrhea overnight. Some nausea, vomited x1. No chest pain or shortness of breath. 01/20/2020 Patient converted to NSR this morning and diltiazem. No CP or SOB. CT of the abdomen suggested an ileus and he now has an NG tube. Hypokalemic, supplemented. Date of service 01/21/2020. Patient remains in sinus rhythm. Still has an NG But he is feeling better, no diarrhea and less abdominal pain. With sitting up in a chair. Telemetry: 10 beat run of V-tach this morning Review of Systems Constitutional: Constitutional: Reports fatigue ENT: Denies epistaxis Cardiovascular: Cardiovascular: Denies chest pain, Denies pedal edema, Denies lightheadedness and Denies palpitations Respiratory: Respiratory: Denies cough, Denies dyspnea and Denies dyspnea on exertion Gastrointestinal: Gastrointestinal: Denies abdominal pain, Reports bloating and Denies hematochezia Genitourinary: Genitourinary: Denies dysuria Musculoskeletal: Musculoskeletal: Denies back pain Integumentary/Breasts: Skin/Breast: Denies rash Neurologic: Reports system reviewed and no additional complaints, except as documented Psychiatric: Psychiatric: Reports no additional psychiatric complaints Exam Const: General: no acute distress and uncomfortable; No confusion Orientation/consciousness: No confusion Other: Elderly male, breathing comfortably but appears tired. HENMT: General nose exam: no epistaxis Eyes: EOM: EOMs intact bilaterally Neck: Neck: supple Resp: Effort & Inspection: normal respiratory effort Auscultation: clear to auscultation bilaterally Cardio: Rate: regular rate Rhythm: regular rhythm GI: Inspection: distended Auscultation: abnormal bowel sounds ( decreased) O
[2020-01-20 14:35] LABS: Anion Gap 8 mmol/L (8-16); Blood Urea Nitrogen 20 mg/dL (9-20); Carbon Dioxide 20 mmol/L (22-30); Chloride 105 mmol/L (98-107); Estimated CRCL calculation 96 ml/min; Estimated Glomerular Filt Rate > 60; Glucose 106 mg/dL (75-110); Potassium 3.1 mmol/L (3.4-5.0); Sodium 133 mmol/L (137-145)
--- NOTE | 2020-01-20 14:52 | PM.IMPN ---
Progress Note: A&P Assessment and Plan (1) Cellulitis of right leg: Code(s): L03.115 - Cellulitis of right lower limb Status: Acute Assessment and Plan: Continue IV clindamycin. Blood cultures pending. Pain control as needed. Antipyretics as needed. (2) Syncope and collapse: Code(s): R55 - Syncope and collapse Status: Acute Assessment and Plan: TSH w/ reflex T4, fall precautions, Echocardiogram in am. Telemetry. Cardiac echo is essentially normal with ejection fraction of 60%, patient has grade 1 diastolic dysfunction unlikely cardiac cause of syncope. (3) Leukocytosis: Code(s): D72.829 - Elevated white blood cell count, unspecified Status: Acute Assessment and Plan: Secondary to cellulitis. (4) Hypertension: Qualifiers: Hypertension type: unspecified Qualified Code(s): I10 - Essential (primary) hypertension Code(s): I10 - Essential (primary) hypertension Status: Chronic Assessment and Plan: Monitor blood pressure. Resume home antihypertensives. (5) Atrial fibrillation: Qualifiers: Atrial fibrillation type: unspecified Qualified Code(s): I48.91 - Unspecified atrial fibrillation Code(s): I48.91 - Unspecified atrial fibrillation Status: Chronic Assessment and Plan: Paroxysmal atrial fibrillation, cardiology rounding stop iv diltizaem and start oral sotalol ad xarelto ad lovenox (6) Abdominal pain: Code(s): R10.9 - Unspecified abdominal pain Status: Acute Assessment and Plan: Pt having abdominal pain and distension KUB and CT ordered NG tube passed. to relief gaseous distension lactic level normal. pt is npo with iv fluids Subjective Date/time seen: 01/20/20 14:52 Interval history: 74-year-old male with history of hypertension atrial fibrillation for which he is taking Eliquis was brought to emergency department after pt had fallen and was found on the floor, Pt had Ng tube passed for ileus, doing well, feels better. pt also here for cellultis and has a history of HTN Review of Systems Review of Systems: All systems reviewed & are unremarkable except as noted in HPI and below Exam Narrative: Exam Narrative: Elderly frail Resp: Effort & Inspection: normal respiratory effort Auscultation: clear to auscultation bilaterally Other: bilateral fair air entry with rhonchi Cardio: Rate: regular rate Rhythm: regular rhythm Heart sounds: no murmurs Other: irregularly irregular GI: Inspection: normal to inspection Auscultation: normal bowel sounds Skin: General skin exam: normal color and erythema (Extending from the right knee down to the foot++ Hot to touch++ ) Objective Data Vital Signs Vital Signs: Vital Signs - 24 hr 01/19/20 16:00 01/19/20 18:00 01/19/20 19:44 Temperature 35.7 C L 36.7 C Pulse Rate 83 92 120 H Respiratory Rate 16 20 Blood Pressure 130/83 128/81 Pulse Oximetry 95 96 01/19/20 19:59 01/19/20 20:00 01/19/20 20:12 Temperature Pulse Rate 98 104 H 106 H Respiratory Rate 18 Blood Pressure Pulse Oximetry 96 01/19/20 20:41 01/19/20 22:00 01/20/20 00:00 Temperature 36.6 C Pulse Rate 115 H 84 90 Respiratory Rate 20 Blood Pressure 119/67 Pulse Oximetry 97 01/20/20 02:00 01/20/20 02:22 01/20/20 02:29 Temperature Pulse Rate 102 H 96 104 H Respiratory Rate 18 18 Blood Pressure Pulse Oximetry 01/20/20 04:00 01/20/20 06:00 01/20/20 07:58 Temperature 36.2 C L 36.4 C L Pulse Rate 78 97 98 Respiratory Rate 18 18 Blood Pressure 110/65 134/75 Pulse Oximetry 95 95 01/20/20 08:00 01/20/20 09:15 01/20/20 09:20 Temperature Pulse Rate 98 94 105 H Respiratory Rate 18 Blood Pressure Pulse Oximetry 01/20/20 09:25 01/20/20 10:00 01/20/20 10:25 Temperature Pulse Rate 98 83 44 L Respiratory Rate 18 Blood Pressure Pulse Oximetry 01/20/20 10:30
[2020-01-20] MEDS: ONDANSETRON INJ 4 MG/2 ML VIAL IV PUSH (17:37)
[2020-01-20] MEDS: CLINDAMYCIN 600 MG/NS 50 ML 600 MG/50 ML PIGGYBACK 100 MG IVPB (21:07)
[2020-01-21] VITALS (28 sets, daily range): BP systolic 141–161; BP diastolic 74–84; PULSE 64–107; RESP 16–20; TEMP 36.3–36.9; O2SAT 95–98
[2020-01-21] MEDS: IPRATROPIUM BR 0.02% INH SOLN 0.5 MG/2.5 ML VIAL INHALATION ×4 (02:15→20:22)
[2020-01-21] MEDS: CLINDAMYCIN 600 MG/NS 50 ML 600 MG/50 ML PIGGYBACK 100 MG IVPB ×3 (05:27→21:12)
[2020-01-21] MEDS: SODIUM CHLORIDE 0.9% IV 1,000 ML 100 ML IV CONT (05:29)
[2020-01-21 05:34] LABS: Anion Gap 8 mmol/L (8-16); Blood Urea Nitrogen 22 mg/dL (9-20); Calcium 7.8 mg/dL (8.4-10.2); Carbon Dioxide 20 mmol/L (22-30); Chloride 105 mmol/L (98-107); Estimated CRCL calculation 108 ml/min; Estimated Glomerular Filt Rate > 60; Glucose 98 mg/dL (75-110); Potassium 2.8 mmol/L (3.4-5.0); Sodium 133 mmol/L (137-145)
[2020-01-21] MEDS: POTASSIUM CHLORIDE 20 MEQ PACKET (FOR LIQUID) 40 MEQ PO (06:04)
[2020-01-21] MEDS: BUDESONIDE RESPULE NEB 0.5 MG/2 ML AMP INHALATION ×2 (08:22→20:22)
[2020-01-21] MEDS: SOTALOL HCL 80 MG TABLET PO ×2 (08:30→21:12)
[2020-01-21] MEDS: PANTOPRAZOLE SODIUM IV 40 MG VIAL IV PUSH ×2 (08:30→21:11)
[2020-01-21] MEDS: ENOXAPARIN 100 MG/ML SYRINGE SUB-Q ×2 (08:30→21:11)
[2020-01-21] MEDS: ACETAMINOPHEN ELIXIR 325 MG/10.15 ML UDC 650 MG PO (09:00)
--- NOTE | 2020-01-21 09:22 | ECG_ITS ---
Measurements Intervals [place] Rate: 70 P: 19 [place]: 149 QRS: 6 QRSD: 126 T: -10 QT: 441 QTc: 478 Interpretive Statements SINUS RHYTHM RIGHT BUNDLE BRANCH BLOCK ABNORMAL ECG Electronically Signed On 01-21-2020 12:39:52 CDT by Hermelindo Mauro D.O.
[2020-01-21 12:01] LABS: Magnesium 1.9 mg/dL (1.6-2.3); Potassium 3.3 mmol/L (3.4-5.0)
--- NOTE | 2020-01-21 15:08 | PM.IMPN ---
Progress Note: A&P Assessment and Plan (1) Cellulitis of right leg: Code(s): L03.115 - Cellulitis of right lower limb Status: Acute Assessment and Plan: Continue IV clindamycin. Blood cultures i snegative . Pain control as needed. Antipyretics as needed. (2) Syncope and collapse: Code(s): R55 - Syncope and collapse Status: Acute Assessment and Plan: Patient has grade 1 diastolic dysfunction unlikely cardiac cause of syncope. (3) Leukocytosis: Code(s): D72.829 - Elevated white blood cell count, unspecified Status: Acute Assessment and Plan: Secondary to cellulitis. (4) Hypertension: Qualifiers: Hypertension type: unspecified Qualified Code(s): I10 - Essential (primary) hypertension Code(s): I10 - Essential (primary) hypertension Status: Chronic Assessment and Plan: Monitor blood pressure. Resume home antihypertensives. (5) Atrial fibrillation: Qualifiers: Atrial fibrillation type: unspecified Qualified Code(s): I48.91 - Unspecified atrial fibrillation Code(s): I48.91 - Unspecified atrial fibrillation Status: Resolved Assessment and Plan: Paroxysmal atrial fibrillation, cardiology rounding stop iv diltizaem and start oral sotalol ad xarelto ad lovenox pt is converted to NSR (6) Abdominal pain: Code(s): R10.9 - Unspecified abdominal pain Status: Acute Assessment and Plan: Pt having abdominal pain and distension KUB and CT ordered NG tube passed. to relief gaseous distension lactic level normal. pt is npo with iv fluids KUB today still shows ileus Continue NG tube today Subjective Date/time seen: 01/21/20 15:08 Interval history: 74-year-old male with history of hypertension atrial fibrillation for which he is taking Eliquis was brought to emergency department after pt had fallen and was found on the floor, Pt had Ng tube passed for ileus, doing well, feels better. pt also here for cellultis and has a history of HTN. Pt abdomen is slowly getting softer, continue NG today. KUB still shows ileus today. Review of Systems Review of Systems: All systems reviewed & are unremarkable except as noted in HPI and below Exam Narrative: Exam Narrative: Elderly frail Narrative: Exam Narrative: Elderly frail Resp: Effort & Inspection: normal respiratory effort Auscultation: clear to auscultation bilaterally Other: bilateral fair air entry with rhonchi Cardio: Rate: regular rate Rhythm: regular rhythm Heart sounds: no murmurs Other: irregularly irregular GI: Inspection: normal to inspection Auscultation: normal bowel sounds Skin: General skin exam: normal color and erythema (Extending from the right knee down to the foot++ Hot to touch++ ) Objective Data Vital Signs Vital Signs: Vital Signs - 24 hr 01/20/20 16:00 01/20/20 18:00 01/20/20 19:22 Temperature 36.7 C Pulse Rate 64 66 Respiratory Rate 18 Blood Pressure 138/75 Pulse Oximetry 93 91 01/20/20 19:23 01/20/20 19:30 01/20/20 19:56 Temperature 36.7 C Pulse Rate 73 71 72 Respiratory Rate 16 16 18 Blood Pressure 153/76 H Pulse Oximetry 96 01/20/20 20:00 01/20/20 21:08 01/20/20 21:37 Temperature Pulse Rate 70 110 H 73 Respiratory Rate Blood Pressure Pulse Oximetry 01/20/20 23:33 01/21/20 00:00 01/21/20 01:58 Temperature 36.9 C Pulse Rate 72 81 68 Respiratory Rate 18 Blood Pressure 152/84 H Pulse Oximetry 98 01/21/20 02:17 01/21/20 02:23 01/21/20 03:59 Temperature Pulse Rate 76 75 69 Respiratory Rate 18 18 Blood Pressure Pulse Oximetry 01/21/20 04:42 01/21/20 05:51 01/21/20 08:00 Temperature 36.6 C 36.8 C Pulse Rate 75 67 73 Respiratory Rate 18 20 Blood Pressure 161/80 H 152/78 H Pulse Oximetry 97 98 01/21/20 08:25 01/21/20 08:30 01/21/20 08:35 Temperature Pulse Rate 75 74 76 Respiratory Rate 18 18
[2020-01-21] MEDS: ONDANSETRON INJ 4 MG/2 ML VIAL IV PUSH (18:30)
[2020-01-21] MEDS: POTASSIUM CHLORIDE INJ 10 MEQ in DEXTROSE 5%/0.45% SOD CHL 1,000 ML 100 MEQ IV CONT (18:34)
[2020-01-22] VITALS (18 sets, daily range): BP systolic 132–161; BP diastolic 69–89; PULSE 58–70; RESP 16–95; TEMP 36.1–36.9; O2SAT 95–100
[2020-01-22] MEDS: IPRATROPIUM BR 0.02% INH SOLN 0.5 MG/2.5 ML VIAL INHALATION ×2 (02:33→09:08)
[2020-01-22] MEDS: POTASSIUM CHLORIDE INJ 10 MEQ in DEXTROSE 5%/0.45% SOD CHL 1,000 ML 100 MEQ IV CONT (03:41)
[2020-01-22 05:32] LABS: Anion Gap 5 mmol/L (8-16); Blood Urea Nitrogen 15 mg/dL (9-20); Calcium 7.4 mg/dL (8.4-10.2); Carbon Dioxide 24 mmol/L (22-30); Chloride 105 mmol/L (98-107); Estimated CRCL calculation 109 ml/min; Estimated Glomerular Filt Rate > 60; Glucose 106 mg/dL (75-110); Potassium 2.7 mmol/L (3.4-5.0); Sodium 134 mmol/L (137-145)
[2020-01-22] MEDS: CLINDAMYCIN 600 MG/NS 50 ML 600 MG/50 ML PIGGYBACK 100 MG IVPB ×3 (06:21→21:08)
[2020-01-22] MEDS: BUDESONIDE RESPULE NEB 0.5 MG/2 ML AMP INHALATION (09:08)
[2020-01-22] MEDS: SOTALOL HCL 80 MG TABLET PO ×2 (09:18→21:07)
[2020-01-22] MEDS: ENOXAPARIN 100 MG/ML SYRINGE SUB-Q ×2 (09:18→21:05)
[2020-01-22] MEDS: PANTOPRAZOLE SODIUM IV 40 MG VIAL IV PUSH ×2 (09:18→21:07)
--- NOTE | 2020-01-22 09:38 | PCDIET ---
Nutrition Follow-Up Complete: Nutrition Diagnosis: Inadequate oral intake related to left knee hematoma as related to poor po intake and weight loss of 15 pounds in the past 3 months. Nutrition Goal: Intake of at least 75% of meals/supplements Goal not met. Patient now NPO with NG tube for decompression. KUB shows ileus. If unable/unexpected to advance diet in next 3-4 days, recommend parenteral nutrition. Clinimix E 5/15 at 90mL/hr with 250mL 20% lipids will provide 2034kcal and 108g protein daily. Recommend checking albumin level for calcium correction and continuing to replace potassium, as medically appropriate. Last recorded weight is 97.1 kg which is down from last review. Bowel Motility: +BM x 1 today. Labs Reviewed: Cr (0.6), K (2.7), Na (134), Ca (7.4) Meds Noted: [place], Symbicort, Clindamycin, Atrovent, Zofran, Protonix, KCl Additional Notes: Right leg cellulitis. Coccyx macerated. Documented scabs and abrasion but no pressure ulcers. Will continue to monitor with same goal. Nutrition Monitoring and Evaluation: Follow up every 3 days.
[2020-01-22 11:24] LABS: Potassium 3.3 mmol/L (3.4-5.0)
--- NOTE | 2020-01-22 14:49 | PM.PNCARD ---
Progress Note: A&P Additional Plan continue sotalol for the patient's atrial fibrillation. He can move out of IMU but should stay on telemetry Willie Herrera MD [facility] Subjective Date/time seen: date of service:01/22/20 14:49 Interval history: Follow-up visit in this 74-year-old patient with paroxysmal atrial fibrillation. Patient has been in sinus rhythm for the last 48 hours or more taking sotalol. No cardiovascular complaints Exam Const: General: no acute distress and uncomfortable; No confusion Orientation/consciousness: No confusion Other: Elderly male, breathing comfortably but appears tired. HENMT: General nose exam: no epistaxis Mouth: Yes moist mucous membranes Eyes: Sclera: sclerae normal Pupils: Equal, round and reactive pupils present EOM: EOMs intact bilaterally Neck: Neck: supple and no JVD Thyroid: thyroid normal Carotids: bruit Other: carotid impulses are intact and are free of bruits Resp: Effort & Inspection: normal respiratory effort Auscultation: clear to auscultation bilaterally Cardio: Rate: regular rate Rhythm: regular rhythm GI: Inspection: distended Auscultation: abnormal bowel sounds ( decreased) : Male General Exam: Yes normal external exam Skin: General skin exam: normal color Neuro: General: No confusion Cranial nerves: Yes Equal, round and reactive pupils present Cognition (Neuro): normal cognition Speech: normal speech Motor exam (neuro): Normal motor muscle tone present throughout Extrem: General: normal to inspection and edema ( mild lower extremity edema) Psych: Mental Status: mental status grossly normal ( though a little slow to respond to questions.) Objective Data Vital Signs Vital Signs: Vital Signs - 24 hr 01/21/20 15:53 01/21/20 16:00 01/21/20 18:00 Temperature 36.4 C Pulse Rate 107 H 71 70 Respiratory Rate 18 Blood Pressure 152/83 H Pulse Oximetry 97 01/21/20 19:58 01/21/20 20:00 01/21/20 20:26 Temperature 36.9 C Pulse Rate 75 70 73 Respiratory Rate 18 18 Blood Pressure 158/74 H Pulse Oximetry 97 01/21/20 20:27 01/21/20 20:38 01/21/20 21:12 Temperature Pulse Rate 72 72 Respiratory Rate 18 Blood Pressure Pulse Oximetry 97 01/21/20 22:00 01/22/20 00:00 01/22/20 02:00 Temperature 36.1 C L Pulse Rate 66 67 63 Respiratory Rate 16 Blood Pressure 161/81 H Pulse Oximetry 95 01/22/20 02:33 01/22/20 02:43 01/22/20 04:00 Temperature 36.9 C Pulse Rate 70 69 66 Respiratory Rate 18 18 20 Blood Pressure 146/72 H Pulse Oximetry 100 01/22/20 06:00 01/22/20 08:00 01/22/20 09:08 Temperature Pulse Rate 59 L 63 66 Respiratory Rate 18 Blood Pressure Pulse Oximetry 97 01/22/20 09:17 01/22/20 09:18 01/22/20 10:00 Temperature 36.2 C L Pulse Rate 67 67 67 Respiratory Rate 20 18 Blood Pressure 149/89 H Pulse Oximetry 97 01/22/20 12:00 01/22/20 14:00 Temperature 36.9 C Pulse Rate 58 L 60 Respiratory Rate 22 H Blood Pressure 132/69 Pulse Oximetry 96 Intake/Output Intake/Output: Intake & Output 01/19/20 01/20/20 01/21/20 01/22/20 23:59 23:59 23:59 23:59 Intake Total 1291 2268 2810 1190 Output Total 300 425 175 550 Balance 991 8943 4415 953 Meds/Results Medications: Active Medications Generic Name Dose Route Start Last Admin Trade Name Freq PRN Reason Stop Dose Admin Acetaminophen 650 mg 01/21/20 08:52 01/21/20 09:00 Tylenol Elixir PO 650 mg Q6H PRN Administration Mild Pain (1-3) or Fever Hydrocodone Bitart/Acetaminophen 1 tab 01/19/20 08:32 [place] 7.5-325 Mg PO Q6H PRN Pain Rated 7-10 Budesonide/Formoterol Fumarate 2 puff 01/22/20 20:00 Symbicort 160-4.5 Mcg (*Sp) Inhaler INHALATION Q12HRT BROOK Enoxaparin Sodium 100 mg 01/19/20 21:00 01/22/20 09:18 Lovenox SUB-Q 100 mg Q12HR BROOK Administration Clindamycin/Sodium Chloride 600 mg in 50 mls @ 100 mls/hr 01/13/20 06:00 0
--- NOTE | 2020-01-22 15:20 | PM.IMPN ---
Progress Note: A&P Assessment and Plan (1) Cellulitis of right leg: Code(s): L03.115 - Cellulitis of right lower limb Status: Acute Assessment and Plan: Continue IV clindamycin. Blood cultures isnegative . Pain control as needed. Antipyretics as needed. (2) Syncope and collapse: Code(s): R55 - Syncope and collapse Status: Acute Assessment and Plan: Patient has grade 1 diastolic dysfunction unlikely cardiac cause of syncope. (3) Leukocytosis: Code(s): D72.829 - Elevated white blood cell count, unspecified Status: Acute Assessment and Plan: Secondary to cellulitis. (4) Hypertension: Qualifiers: Hypertension type: unspecified Qualified Code(s): I10 - Essential (primary) hypertension Code(s): I10 - Essential (primary) hypertension Status: Chronic Assessment and Plan: Monitor blood pressure. Resume home antihypertensives. (5) Atrial fibrillation: Qualifiers: Atrial fibrillation type: unspecified Qualified Code(s): I48.91 - Unspecified atrial fibrillation Code(s): I48.91 - Unspecified atrial fibrillation Status: Resolved Assessment and Plan: Paroxysmal atrial fibrillation, cardiology rounding stop iv diltizaem and start oral sotalol ad xarelto ad lovenox pt is converted to NSR (6) Abdominal pain: Code(s): R10.9 - Unspecified abdominal pain Status: Acute Assessment and Plan: Pt having abdominal pain and distension KUB and CT ordered NG tube passed. to relief gaseous distension remove NG tube today start clear diet Additional Plan Subjective Date/time seen: 01/22/20 15:20 Interval history: 74-year-old male with history of hypertension atrial fibrillation for which he is taking Eliquis was brought to emergency department after pt had fallen and was found on the floor, Pt had Ng tube passed for ileus, doing well, feels better. pt also here for cellultis and has a history of HTN. Pt abdomen is slowly getting softer, NG out today. Review of Systems Review of Systems: ROS unobtainable: Yes other (feels better, belly soft no chest pain or SOB ) Exam Narrative: Exam Narrative: Elderly frail Narrative: Exam Narrative: Elderly frail Resp: Effort & Inspection: normal respiratory effort Auscultation: clear to auscultation bilaterally Other: bilateral fair air entry with rhonchi Cardio: Rate: regular rate Rhythm: regular rhythm Heart sounds: no murmurs Other: irregularly irregular GI: Inspection: soft non tender, Auscultation: normal bowel sounds, Skin: General skin exam: normal color and erythema (Extending from the right knee down to the foot++ Hot to touch++ ) Objective Data Vital Signs Vital Signs: Vital Signs - 24 hr 01/21/20 15:53 01/21/20 16:00 01/21/20 18:00 Temperature 36.4 C Pulse Rate 107 H 71 70 Respiratory Rate 18 Blood Pressure 152/83 H Pulse Oximetry 97 01/21/20 19:58 01/21/20 20:00 01/21/20 20:26 Temperature 36.9 C Pulse Rate 75 70 73 Respiratory Rate 18 18 Blood Pressure 158/74 H Pulse Oximetry 97 01/21/20 20:27 01/21/20 20:38 01/21/20 21:12 Temperature Pulse Rate 72 72 Respiratory Rate 18 Blood Pressure Pulse Oximetry 97 01/21/20 22:00 01/22/20 00:00 01/22/20 02:00 Temperature 36.1 C L Pulse Rate 66 67 63 Respiratory Rate 16 Blood Pressure 161/81 H Pulse Oximetry 95 01/22/20 02:33 01/22/20 02:43 01/22/20 04:00 Temperature 36.9 C Pulse Rate 70 69 66 Respiratory Rate 18 18 20 Blood Pressure 146/72 H Pulse Oximetry 100 01/22/20 06:00 01/22/20 08:00 01/22/20 09:08 Temperature Pulse Rate 59 L 63 66 Respiratory Rate 18 Blood Pressure Pulse Oximetry 97 01/22/20 09:17 01/22/20 09:18 01/22/20 10:00 Temperature 36.2 C L Pulse Rate 67 67 67 Respiratory Rate 20 18 Blood Pressure 149/89 H Pulse Oximetry 97 01/22/20 12:00 01/22/20
--- NOTE | 2020-01-22 20:45 | PC.NURSE ---
This patient, Kieran Sanchez, was transferred to [facility] on 01/22/20 at 2035. Personal belongings sent with patient. Belongings list checked and signed with receiving. Report given to BRIDGER Bautista. Appropriate documentation sent with patient.
--- NOTE | 2020-01-22 20:58 | PC.NURSE ---
Received pt into room 241 at 2039
[2020-01-23] VITALS (12 sets, daily range): BP systolic 96–137; BP diastolic 58–73; PULSE 52–62; RESP 16–20; TEMP 36.6–37.3; O2SAT 95–100
[2020-01-23] MEDS: CLINDAMYCIN 600 MG/NS 50 ML 600 MG/50 ML PIGGYBACK 100 MG IVPB (05:29)
[2020-01-23 05:56] LABS: Hematocrit 37.2 % (42.0-52.0); Hemoglobin 12.3 g/dL (14.0-18.0); Mean Corpuscular HGB Conc 33.1 g/dl (32-36); Mean Corpuscular Volume 99.7 fl (80-100); Mean Platelet Volume 10.5 fl (7.4-10.4); Platelet Count Result 170 k/mm3 (150-375); Red Blood Count 3.73 M/mm3 (4.6-6.20); Red Cell Distribution Width 13.9 % (11.5-14.5); White Blood Count 7.2 K/mm3 (4.5-10.0)
[2020-01-23 06:15] LABS: Anion Gap 3 mmol/L (8-16); Blood Urea Nitrogen 8 mg/dL (9-20); Calcium 7.4 mg/dL (8.4-10.2); Carbon Dioxide 28 mmol/L (22-30); Chloride 104 mmol/L (98-107); Estimated CRCL calculation 84 ml/min; Estimated Glomerular Filt Rate > 60; Glucose 89 mg/dL (75-110); Potassium 2.8 mmol/L (3.4-5.0); Sodium 135 mmol/L (137-145)
[2020-01-23] MEDS: SOTALOL HCL 80 MG TABLET PO ×2 (09:52→20:46)
[2020-01-23] MEDS: POTASSIUM CHLORIDE 20 MEQ TABLET 40 MEQ PO ×2 (09:52→17:23)
[2020-01-23] MEDS: PANTOPRAZOLE SODIUM IV 40 MG VIAL IV PUSH ×2 (09:52→20:46)
[2020-01-23] MEDS: ENOXAPARIN 100 MG/ML SYRINGE SUB-Q ×2 (09:52→20:47)
[2020-01-23 12:12] LABS: Potassium 3.6 mmol/L (3.4-5.0)
--- NOTE | 2020-01-23 15:06 | PM.PNCARD ---
Progress Note: A&P Assessment and Plan (1) Atrial fibrillation: Qualifiers: Atrial fibrillation type: unspecified Qualified Code(s): I48.91 - Unspecified atrial fibrillation Code(s): I48.91 - Unspecified atrial fibrillation Status: Resolved Assessment and Plan: PAF, converted to sinus rhythm 01/20/2020 Cont sotalol and Xarelto. QT interval appears normal by telemetry. (2) Abdominal pain: Code(s): R10.9 - Unspecified abdominal pain Status: Acute Assessment and Plan: Ileus resolved, tolerating diet (3) Cellulitis of right leg: Code(s): L03.115 - Cellulitis of right lower limb Status: Acute Assessment and Plan: On antibiotics, care per hospitalists. (4) Hypokalemia: Code(s): E87.6 - Hypokalemia Status: Acute Assessment and Plan: Supplemented. Finally back to the normal range. Subjective Date/time seen: 01/23/20 15:06 Interval history: 74-year-old man who apparently has a history of paroxysmal atrial fibrillation he entered the hospital after falling and had some cellulitis in the lower extremity. Also has an ileus. He was admitted in NSR but developed a fib RVR during his hospital stay. 01/18/2020 stopped the IV diltiazem and started him on sotalol and advanced his Xarelto to therapeutic dosage; held 2nd ileus. Converted to NSR on 01/20/2020. Echo showed EF 60-65%, no significant valve stenosis/regurg. 01/22/2020: Follow-up visit in this 74-year-old patient with paroxysmal atrial fibrillation. Patient has been in sinus rhythm for the last 48 hours or more taking sotalol. No cardiovascular complaints Date of service 01/23/2020: Follow-up for atrial fibrillation. NG tube out and eating real food. Walked a little w/ walker. FEeling better. Review of Systems Constitutional: Constitutional: Reports fatigue and Denies headache(s) ENT: Denies headache(s) and Denies epistaxis Cardiovascular: Cardiovascular: Denies chest pain, Denies pedal edema, Denies leg edema, Denies lightheadedness, Denies palpitations, Denies dyspnea and Denies dyspnea on exertion Respiratory: Respiratory: Denies cough, Denies dyspnea and Denies dyspnea on exertion Gastrointestinal: Gastrointestinal: Denies abdominal pain Genitourinary: Genitourinary: Denies dysuria Musculoskeletal: Musculoskeletal: Denies back pain Integumentary/Breasts: Skin/Breast: Reports wounds Comments: sore hip from fall; big bruise. Neurologic: Reports system reviewed and no additional complaints, except as documented Psychiatric: Psychiatric: Reports no additional psychiatric complaints Endocrine: Endocrine: Reports fatigue and Denies palpitations Exam Const: General: no acute distress and uncomfortable; No confusion Orientation/consciousness: No confusion Other: Elderly male, breathing comfortably HENMT: General nose exam: no epistaxis Eyes: EOM: EOMs intact bilaterally Neck: Neck: supple Resp: Effort & Inspection: normal respiratory effort Auscultation: clear to auscultation bilaterally Cardio: Rate: regular rate Rhythm: regular rhythm GI: Inspection: non-distended Other: abdomen soft and nontender, diminished bowel sounds Skin: Wounds: wounds noted ( ecchymosis of right hip and knee) Neuro: General: No confusion Speech: normal speech Motor exam (neuro): Normal motor muscle tone present throughout Extrem: General: edema ( mild lower extremity edema) Psych: Mental Status: mental status grossly normal ( though a little slow to respond to questions.) Objective Data Vital Signs Vital Signs: Vital Signs - 24 hr 01/22/20 16:00 01/22/20 19:57 01/22/20 20:36 Temperature 98 F 96.9 F L Pulse Rate 69 65 66 Respiratory Rate 20 95 H 18 Blood Pressure 145/74 H 143/70 H Pulse Oximetry 98 96
--- NOTE | 2020-01-23 15:25 | PM.IMPN ---
Progress Note: A&P Assessment and Plan (1) Cellulitis of right leg: Code(s): L03.115 - Cellulitis of right lower limb Status: Acute Assessment and Plan: Continue IV clindamycin. Blood cultures isnegative . Pain control as needed. Antipyretics as needed. 01/23/20 15:25 Admit to med-surg, Continue IV antibiotics. Blood cultures pending. Check RLE dopper U/S in am to rule out DVT. Pain control as needed. Antipyretics as needed. patient is 74-year-old male with history of hypertension atrial fibrillation for which he is taking Eliquis was brought to emergency department after had fallen and was found on the floor, patient states on and off he feels dizzy and fall, he denies any associated symptoms of chest pain palpitation fever or chills, room is not moving, he just feels lightheaded, his legs are weak he falls, patient had CT scan of the head which was essentially normal for any acute injury, patient had x-ray of the shoulder, and hip and pelvis there is no acute bony fracture, to further evaluate patient had a cardiac echo and carotid ultrasound, carotid ultrasound is negative for any significant stenosis, cardiac echo is pending, patient is also found to have right lower extremity swelling tenderness and erythema, diagnosed with cellulitis being treated with clindamycin, had a lower extremity Doppler to rule out DVT which is negative. today patient states the pain in right leg is improved, however complains of pain in right elbow and painful to move, he also complains of loose bowel movement which are persisting for last 2 months he was seen at the [facility] and was told and further infectious but no detail, will do the stool culture, currently patient is on clindamycin for cellulitis, yesterday patient was having shortness of breath chest x-ray showed pneumonia patient is currently on clindamycin we added did throw mycin to cover for atypical, today patient is much more comfortable denies any cough shortness of breath fever or chills, chest x-ray done today shows slight improvement in pneumonia will continue present management repeat chest x-ray again on Saturday to further evaluate, right lower extremity cellulitis is improving. patient also had complained of right elbow pain was seen by orthopedic surgeon does not need any surgical intervention continue conservative management. will have a PT OT evaluate the patient and further recommendation to follow, patient with history of proximal atrial fibrillation early today patient went into atrial fibrillation with RVR was started on diltiazem drip and transferred to IMU while on the drip patient heart rate was persisting about 100 patient was seen by house cleaner recommended to stop the diltiazem drip and started the patient on sotalol and xarelto, repeat chest x-ray on 01/17 still showed persistent pneumonia, on 01/18 patient had developed abdominal pain and imaging showed adynamic ileus, NG tube was placed, patient symptom have improved and doing well, patient clinically is feeling better denies any fever or chill, will continue present management will continue to monitor heart rate and repeat checks x-ray in 2 days and discharge patient on Saturday. (2) Syncope and collapse: Code(s): R55 - Syncope and collapse Status: Acute Assessment and Plan: Patient has grade 1 diastolic dysfunction unlikely cardiac cause of syncope. (3) Leukocytosis: Code(s): D72.829 - Elevated white blood cell count, unspecified Status: Acute Assessment and Plan: Secondary to cellulitis. (4) Hypertension: Qualifiers: Hypertension type: unspecified Qualified Code(s): I10 - Essential (primary) hypertension Code(s): I10 - Essential (primary) hypertension Status: Chronic Assessment and Plan: Monitor blood pressure. Resume home antihypertensives. (5) Atrial fibrillation: Qualifiers: Atrial fibrillation type: unspecified Qual
[2020-01-23] MEDS: MAGNESIUM OXIDE 400 MG TABLET PO (17:23)
[2020-01-23] MEDS: LIDOCAINE 5% PATCH 2 PATCH TRANSDERM (17:24)
[2020-01-24] VITALS (11 sets, daily range): BP systolic 108–145; BP diastolic 51–67; PULSE 58–79; RESP 16–20; TEMP 36.2–37.1; O2SAT 95–100
[2020-01-24 06:05] LABS: Hematocrit 36.8 % (42.0-52.0); Hemoglobin 12.2 g/dL (14.0-18.0); Mean Corpuscular HGB Conc 33.2 g/dl (32-36); Mean Corpuscular Hemoglobin 33.4 pg (26-34); Mean Corpuscular Volume 100.8 fl (80-100); Mean Platelet Volume 10.8 fl (7.4-10.4); Platelet Count Result 167 k/mm3 (150-375); Red Blood Count 3.65 M/mm3 (4.6-6.20); White Blood Count 11.5 K/mm3 (4.5-10.0)
[2020-01-24 06:42] LABS: Anion Gap 4 mmol/L (8-16); Blood Urea Nitrogen 6 mg/dL (9-20); Calcium 7.8 mg/dL (8.4-10.2); Carbon Dioxide 28 mmol/L (22-30); Chloride 102 mmol/L (98-107); Estimated CRCL calculation 96 ml/min; Estimated Glomerular Filt Rate > 60; Glucose 93 mg/dL (75-110); Magnesium 1.9 mg/dL (1.6-2.3); Potassium 2.9 mmol/L (3.4-5.0); Sodium 134 mmol/L (137-145)
[2020-01-24] MEDS: ONDANSETRON INJ 4 MG/2 ML VIAL IV PUSH ×2 (08:31→17:29)
[2020-01-24] MEDS: LIDOCAINE 5% PATCH 2 PATCH TRANSDERM (08:35)
[2020-01-24] MEDS: PANTOPRAZOLE SODIUM IV 40 MG VIAL IV PUSH ×2 (08:36→20:26)
[2020-01-24] MEDS: POTASSIUM CHLORIDE 20 MEQ TABLET 40 MEQ PO (09:58)
[2020-01-24] MEDS: ENOXAPARIN 100 MG/ML SYRINGE SUB-Q (09:58)
[2020-01-24] MEDS: SOTALOL HCL 80 MG TABLET PO ×2 (09:58→20:26)
[2020-01-24] MEDS: MAGNESIUM OXIDE 400 MG TABLET PO (09:58)
--- NOTE | 2020-01-24 13:44 | PM.IMPN ---
Progress Note: A&P Assessment and Plan (1) Cellulitis of right leg: Code(s): L03.115 - Cellulitis of right lower limb Status: Acute Assessment and Plan: Continue IV clindamycin. Blood cultures isnegative . Pain control as needed. Antipyretics as needed. 01/24/20 13:44 Admit to med-surg, Continue IV antibiotics. Blood cultures pending. Check RLE dopper U/S in am to rule out DVT. Pain control as needed. Antipyretics as needed. patient is 74-year-old male with history of hypertension atrial fibrillation for which he is taking Eliquis was brought to emergency department after had fallen and was found on the floor, patient states on and off he feels dizzy and fall, he denies any associated symptoms of chest pain palpitation fever or chills, room is not moving, he just feels lightheaded, his legs are weak he falls, patient had CT scan of the head which was essentially normal for any acute injury, patient had x-ray of the shoulder, and hip and pelvis there is no acute bony fracture, to further evaluate patient had a cardiac echo and carotid ultrasound, carotid ultrasound is negative for any significant stenosis, cardiac echo is pending, patient is also found to have right lower extremity swelling tenderness and erythema, diagnosed with cellulitis being treated with clindamycin, had a lower extremity Doppler to rule out DVT which is negative. today patient states the pain in right leg is improved, however complains of pain in right elbow and painful to move, he also complains of loose bowel movement which are persisting for last 2 months he was seen at the [facility] and was told and further infectious but no detail, will do the stool culture, currently patient is on clindamycin for cellulitis, yesterday patient was having shortness of breath chest x-ray showed pneumonia patient is currently on clindamycin we added did throw mycin to cover for atypical, today patient is much more comfortable denies any cough shortness of breath fever or chills, chest x-ray done today shows slight improvement in pneumonia will continue present management repeat chest x-ray again on Saturday to further evaluate, right lower extremity cellulitis is improving. patient also had complained of right elbow pain was seen by orthopedic surgeon does not need any surgical intervention continue conservative management. will have a PT OT evaluate the patient and further recommendation to follow, patient with history of proximal atrial fibrillation early today patient went into atrial fibrillation with RVR was started on diltiazem drip and transferred to IMU while on the drip patient heart rate was persisting about 100 patient was seen by slot machine department floorperson recommended to stop the diltiazem drip and started the patient on sotalol and xarelto, repeat chest x-ray on 01/17 still showed persistent pneumonia, on 01/18 patient had developed abdominal pain and imaging showed adynamic ileus, NG tube was placed, patient symptom have improved and doing well, However today patient had a complaint abdominal pain nausea and concern patient may again have ileus KUB was ordered and pending however patient did have BM later today is feeling much better, patient clinically stable and remains stable will discharged tomorrow (2) Syncope and collapse: Code(s): R55 - Syncope and collapse Status: Acute Assessment and Plan: Patient has grade 1 diastolic dysfunction unlikely cardiac cause of syncope. (3) Leukocytosis: Code(s): D72.829 - Elevated white blood cell count, unspecified Status: Acute Assessment and Plan: Secondary to cellulitis. (4) Hypertension: Qualifiers: Hypertension type: unspecified Qualified Code(s): I10 - Essential (primary) hypertension Code(s): I10 - Essential (primary) hypertension Status: Chronic Assessment and Plan: Monitor blood pressure. Resume home antihypertensives. (5) Atrial fibrillation: [place]
[2020-01-24 16:28] LABS: Anion Gap 6 mmol/L (8-16); Blood Urea Nitrogen 6 mg/dL (9-20); Calcium 7.6 mg/dL (8.4-10.2); Carbon Dioxide 24 mmol/L (22-30); Chloride 100 mmol/L (98-107); Estimated CRCL calculation 113 ml/min; Estimated Glomerular Filt Rate > 60; Glucose 119 mg/dL (75-110); Potassium 3.6 mmol/L (3.4-5.0); Sodium 130 mmol/L (137-145)
[2020-01-24] MEDS: RIVAROXABAN 20 MG TABLET PO (17:25)
[2020-01-25] VITALS (16 sets, daily range): BP systolic 110–144; BP diastolic 52–65; PULSE 67–77; RESP 12–21; TEMP 36.6–37.2; O2SAT 96–100
[2020-01-25 06:41] LABS: Hematocrit 34.4 % (42.0-52.0); Hemoglobin 11.1 g/dL (14.0-18.0); Mean Corpuscular HGB Conc 32.3 g/dl (32-36); Mean Corpuscular Hemoglobin 32.5 pg (26-34); Mean Corpuscular Volume 100.6 fl (80-100); Platelet Count Result 155 k/mm3 (150-375); Red Blood Count 3.42 M/mm3 (4.6-6.20); Red Cell Distribution Width 14.2 % (11.5-14.5); White Blood Count 17.3 K/mm3 (4.5-10.0)
[2020-01-25 06:55] LABS: Anion Gap 5 mmol/L (8-16); Blood Urea Nitrogen 10 mg/dL (9-20); Calcium 7.7 mg/dL (8.4-10.2); Carbon Dioxide 27 mmol/L (22-30); Chloride 99 mmol/L (98-107); Estimated CRCL calculation 84 ml/min; Estimated Glomerular Filt Rate > 60; Glucose 98 mg/dL (75-110); Sodium 131 mmol/L (137-145)
[2020-01-25] MEDS: DOCUSATE SODIUM 100 MG CAPSULE PO ×2 (09:51→19:53)
[2020-01-25] MEDS: POTASSIUM CHLORIDE 20 MEQ TABLET 40 MEQ PO (09:51)
[2020-01-25] MEDS: PANTOPRAZOLE SODIUM IV 40 MG VIAL IV PUSH ×2 (09:52→19:52)
[2020-01-25] MEDS: polyethylene glycoL 3350 17 GM POWD.PACK PO (09:52)
[2020-01-25] MEDS: LIDOCAINE 5% PATCH 2 PATCH TRANSDERM (09:52)
[2020-01-25] MEDS: MAGNESIUM OXIDE 400 MG TABLET PO (09:52)
[2020-01-25] MEDS: SOTALOL HCL 80 MG TABLET PO ×2 (09:52→19:52)
--- NOTE | 2020-01-25 10:36 | PCPTNOTE ---
Transfer from bed not attempted at this time due to safety concerns. Patient unable to maintain sitting balance on edge of bed without leaning over to the right and does not attempt to correct without cues. Patient requires more assist today for bed mobility.
[2020-01-25 11:24] LABS: Lactic Acid Reflex 2.4 mmol/L (0.7-2.1)
--- NOTE | 2020-01-25 13:26 | PCNFU ---
Nutrition Follow-Up Complete: Inadequate Oral Intake as related to left knee hematomia as related to poor po intake and weight loss of 15 ibs in the past 3 months. goal: Adequate Intake of at least 75% of meals/supplements Limited progress towards goal. We will continue current goal. Pt current nutrition is clear liquids. Nutrition recommendation:Advancing as tolerated per MD orders. Last recorded weight is 90.3 kg down from admit weight of 99.3 kg. BMI: 28.6 overweight. Bowel Motility:+BM noted 01/24 Labs Reviewed:K 3.0,Na 131,Hgb 11.0,Hct 34.3 Meds Noted: [place],Mag-Ox,Protonix,Colace,Miralax Additional Notes: Nutrition follow up, Patient had Chest x-ray and Abdominal x-ray today. He is current with a clear liquid diet. Patient refused breakfast and lunch trays today. Ensure Clear will be on trays providing an additional 240 kcals and 8 gms protein. Monitoring: RD will monitor every 3 days
[2020-01-25 14:09] LABS: Reflex Lactic Acid Yes or No Add Lactic
[2020-01-25 14:36] LABS: Anion Gap 6 mmol/L (8-16); Blood Urea Nitrogen 11 mg/dL (9-20); Calcium 7.9 mg/dL (8.4-10.2); Carbon Dioxide 27 mmol/L (22-30); Chloride 96 mmol/L (98-107); Estimated CRCL calculation 84 ml/min; Estimated Glomerular Filt Rate > 60; Glucose 133 mg/dL (75-110); Lactic Acid 1.8 mmol/L (0.7-2.1); Potassium 4.2 mmol/L (3.4-5.0); Sodium 129 mmol/L (137-145)
--- NOTE | 2020-01-25 15:08 | PM.IMPN ---
Progress Note: A&P Assessment and Plan (1) Cellulitis of right leg: Code(s): L03.115 - Cellulitis of right lower limb Status: Acute Assessment and Plan: Continue IV clindamycin. Blood cultures isnegative . Pain control as needed. Antipyretics as needed. 01/25/20 15:08 Admit to med-surg, Continue IV antibiotics. Blood cultures pending. Check RLE dopper U/S in am to rule out DVT. Pain control as needed. Antipyretics as needed. patient is 74-year-old male with history of hypertension atrial fibrillation for which he is taking Eliquis was brought to emergency department after had fallen and was found on the floor, patient states on and off he feels dizzy and fall, he denies any associated symptoms of chest pain palpitation fever or chills, room is not moving, he just feels lightheaded, his legs are weak he falls, patient had CT scan of the head which was essentially normal for any acute injury, patient had x-ray of the shoulder, and hip and pelvis there is no acute bony fracture, to further evaluate patient had a cardiac echo and carotid ultrasound, carotid ultrasound is negative for any significant stenosis, cardiac echo is pending, patient is also found to have right lower extremity swelling tenderness and erythema, diagnosed with cellulitis being treated with clindamycin, had a lower extremity Doppler to rule out DVT which is negative. today patient states the pain in right leg is improved, however complains of pain in right elbow and painful to move, he also complains of loose bowel movement which are persisting for last 2 months he was seen at the [facility] and was told and further infectious but no detail, will do the stool culture, currently patient is on clindamycin for cellulitis, yesterday patient was having shortness of breath chest x-ray showed pneumonia patient is currently on clindamycin we added did throw mycin to cover for atypical, today patient is much more comfortable denies any cough shortness of breath fever or chills, chest x-ray done today shows slight improvement in pneumonia will continue present management repeat chest x-ray again on Saturday to further evaluate, right lower extremity cellulitis is improving. patient also had complained of right elbow pain was seen by orthopedic surgeon does not need any surgical intervention continue conservative management. will have a PT OT evaluate the patient and further recommendation to follow, patient with history of proximal atrial fibrillation early today patient went into atrial fibrillation with RVR was started on diltiazem drip and transferred to IMU while on the drip patient heart rate was persisting about 100 patient was seen by waredresser recommended to stop the diltiazem drip and started the patient on sotalol and xarelto, repeat chest x-ray on 01/17 still showed persistent pneumonia, on 01/18 patient had developed abdominal pain and imaging showed adynamic ileus, NG tube was placed, patient symptom have improved and doing well, However today agaom patient a complaint abdominal pain nausea and patient has elevated white counts, concern patient may again have ileus KUB was ordered again and KUB was again negative however patient did have BM later today, A chest is clear was done which also showed improvement pneumonia however patient overall is not feeling very well and appears ill, will continue to monitor patient and further recommendation to follow (2) Syncope and collapse: Code(s): R55 - Syncope and collapse Status: Acute Assessment and Plan: Patient has grade 1 diastolic dysfunction unlikely cardiac cause of syncope. (3) Leukocytosis: Code(s): D72.829 - Elevated white blood cell count, unspecified Status: Acute Assessment and Plan: Secondary to cellulitis. (4) Hypertension: Qualifiers: Hypertension type: unspecified Qualified Code(s): I10 - Essential (primary) hypertension Code(s): I10 - Essential
[2020-01-25] MEDS: RIVAROXABAN 20 MG TABLET PO (17:44)
[2020-01-25 17:57] LABS: Alveolar/Arterial O2 Gradient 47.7 mmHg; Base Excess ABG -0.6 mEq/l (+/-2.0); Fractional Inspired Oxygen 21 %; HCO3 ABG 22.2 mEq/l (22.0-26.0); Oxygen Content ABG 16.4 %vol (16.0-22.0); Oxygen Saturation ABG 94.2 % (95.0-100.0); Oxyhemoglobin 92.7 % THb (90.0-100.0); PO2 ABG 64.9 mmHg (80.0-100.0); PO2 FiO2 Ratio Arterial Blood 3.09 %; Total Hemoglobin 12.6 g/dL (12.0-18.0); pH ABG 7.473 (7.350-7.450)
[2020-01-25 17:58] LABS: Device ROOM AIR; Site Drawn LEFT BRACHIAL
[2020-01-25 20:33] LABS: Glucose Point of Care 123 (65-105)
[2020-01-26] VITALS (14 sets, daily range): BP systolic 108–137; BP diastolic 45–65; PULSE 65–98; RESP 21–22; TEMP 36.1–36.7; O2SAT 94–100
[2020-01-26 05:57] LABS: Hematocrit 32.1 % (42.0-52.0); Hemoglobin 10.7 g/dL (14.0-18.0); Mean Corpuscular HGB Conc 33.3 g/dl (32-36); Mean Corpuscular Hemoglobin 33.1 pg (26-34); Mean Corpuscular Volume 99.4 fl (80-100); Mean Platelet Volume 11.2 fl (7.4-10.4); Platelet Count Result 153 k/mm3 (150-375); Red Blood Count 3.23 M/mm3 (4.6-6.20); Red Cell Distribution Width 14.1 % (11.5-14.5); White Blood Count 14.6 K/mm3 (4.5-10.0)
[2020-01-26 06:15] LABS: Anion Gap 5 mmol/L (8-16); Blood Urea Nitrogen 15 mg/dL (9-20); Calcium 7.6 mg/dL (8.4-10.2); Carbon Dioxide 26 mmol/L (22-30); Chloride 98 mmol/L (98-107); Estimated CRCL calculation 96 ml/min; Estimated Glomerular Filt Rate > 60; Glucose 108 mg/dL (75-110); Potassium 3.4 mmol/L (3.4-5.0); Sodium 129 mmol/L (137-145)
[2020-01-26] MEDS: PANTOPRAZOLE SODIUM IV 40 MG VIAL IV PUSH ×2 (09:00→21:58)
[2020-01-26] MEDS: MAGNESIUM OXIDE 400 MG TABLET PO (09:00)
[2020-01-26] MEDS: POTASSIUM CHLORIDE 20 MEQ TABLET 40 MEQ PO (09:01)
[2020-01-26] MEDS: SOTALOL HCL 80 MG TABLET PO ×2 (09:01→21:57)
[2020-01-26] MEDS: LIDOCAINE 5% PATCH 2 PATCH TRANSDERM (09:01)
--- NOTE | 2020-01-26 10:09 | ECG_ITS ---
Measurements Intervals [place] Rate: 72 P: 31 [place]: 146 QRS: 22 QRSD: 126 T: 15 QT: 430 QTc: 473 Interpretive Statements SINUS RHYTHM RIGHT BUNDLE BRANCH BLOCK BASELINE ARTIFACT- II, III ABNORMAL ECG Electronically Signed On 01-26-2020 11:13:46 CDT by Hermelindo Mauro D.O.
--- NOTE | 2020-01-26 10:24 | PM.PNCARD ---
Progress Note: A&P Assessment and Plan (1) Atrial fibrillation: Qualifiers: Atrial fibrillation type: unspecified Qualified Code(s): I48.91 - Unspecified atrial fibrillation Code(s): I48.91 - Unspecified atrial fibrillation Status: Resolved Assessment and Plan: PAF, converted to sinus rhythm 01/20/2020 Cont sotalol and Xarelto. Will check EKG today. (2) Abdominal pain: Code(s): R10.9 - Unspecified abdominal pain Status: Acute Assessment and Plan: Ileus resolved, tolerating Clear liquid diet (3) Cellulitis of right leg: Code(s): L03.115 - Cellulitis of right lower limb Status: Acute Assessment and Plan: On antibiotics, care per hospitalists. (4) Hypokalemia: Code(s): E87.6 - Hypokalemia Status: Acute Assessment and Plan: Supplemented. Finally back to the normal range. Additional Plan No further cardiac recommendations. See discharge instructions for follow-up. Plan discussed with Dr. Delaney [id number] 01/26/2020 Subjective Date/time seen: 01/26/20 10:24 Interval history: Follow up for: history of paroxysmal atrial fibrillation, entering the hospital after falling and had some cellulitis in the lower extremity and an ileus. He was admitted in NSR but developed a fib RVR during his hospital stay. Converted to NSR on 01/20/2020. Date of service: 01/26/2020 Subjective: Denied chest discomfort, shortness of breath, abdominal discomfort or nausea. Review of Systems Constitutional: Constitutional: Reports fatigue Eyes: Eyes: Denies blurry vision ENT: Reports Normal hearing present and Denies epistaxis Cardiovascular: Cardiovascular: Denies chest pain, Denies pedal edema, Denies leg edema, Denies lightheadedness, Denies palpitations, Denies dyspnea and Denies dyspnea on exertion Respiratory: Respiratory: Denies cough, Denies dyspnea and Denies dyspnea on exertion Gastrointestinal: Gastrointestinal: Denies abdominal pain and Denies nausea Genitourinary: Genitourinary: Denies hematuria and Denies dysuria Musculoskeletal: Musculoskeletal: Denies back pain and Denies arthralgias Integumentary/Breasts: Skin/Breast: Reports wounds Neurologic: Reports Normal hearing present Comments: Lethargic Psychiatric: Psychiatric: Denies anxiety Endocrine: Endocrine: Reports fatigue and Denies palpitations Hematologic/Lymphatic: Hematologic/Lymphatic: Denies easy bleeding and Denies easy bruising Allergic/Immunologic: Allergic/Immunologic: Denies lip swelling and Denies wheezing Exam Const: General: comfortable and no acute distress Nutritional Appearance: average body habitus Orientation/consciousness: lethargic Other: Breathing comfortably lying flat in bed. HENMT: General nose exam: no epistaxis Mouth: Yes moist mucous membranes Eyes: Sclera: sclerae normal Pupils: Equal, round and reactive pupils present Neck: Neck: supple and no JVD Carotids: bruit Other: carotid impulses are intact and are free of bruits Resp: Effort & Inspection: normal respiratory effort Auscultation: clear to auscultation bilaterally Cardio: Rate: regular rate Rhythm: regular rhythm GI: Inspection: non-distended GI Palp: Yes Soft to palpation and No Tenderness to palpation present (GI) Auscultation: normal bowel sounds Other: abdomen soft and nontender, diminished bowel sounds : Male General Exam: Yes normal external exam Skin: General skin exam: normal color Wounds: wounds noted ( ecchymosis of right hip and knee) Neuro: General: other ( Lethargic) Cranial nerves: Yes Equal, round and reactive pupils present Speech: normal speech Motor exam (neuro): Normal motor muscle tone present throughout Extrem: General: normal to inspection and edema ( mild lower extremity edema) Psych: Mental St
--- NOTE | 2020-01-26 15:02 | PM.IMPN ---
Progress Note: A&P Assessment and Plan (1) Cellulitis of right leg: Code(s): L03.115 - Cellulitis of right lower limb Status: Acute Assessment and Plan: Continue IV clindamycin. Blood cultures isnegative . Pain control as needed. Antipyretics as needed. follow 01/26/20 15:02 Admit to med-surg, Continue IV antibiotics. Blood cultures pending. Check RLE dopper U/S in am to rule out DVT. Pain control as needed. Antipyretics as needed. patient is 74-year-old male with history of hypertension atrial fibrillation for which he is taking Eliquis was brought to emergency department after had fallen and was found on the floor, patient states on and off he feels dizzy and fall, he denies any associated symptoms of chest pain palpitation fever or chills, room is not moving, he just feels lightheaded, his legs are weak he falls, patient had CT scan of the head which was essentially normal for any acute injury, patient had x-ray of the shoulder, and hip and pelvis there is no acute bony fracture, to further evaluate patient had a cardiac echo and carotid ultrasound, carotid ultrasound is negative for any significant stenosis, cardiac echo is pending, patient is also found to have right lower extremity swelling tenderness and erythema, diagnosed with cellulitis being treated with clindamycin, had a lower extremity Doppler to rule out DVT which is negative. today patient states the pain in right leg is improved, however complains of pain in right elbow and painful to move, he also complains of loose bowel movement which are persisting for last 2 months he was seen at the [facility] and was told and further infectious but no detail, will do the stool culture, currently patient is on clindamycin for cellulitis, yesterday patient was having shortness of breath chest x-ray showed pneumonia patient is currently on clindamycin we added did throw mycin to cover for atypical, today patient is much more comfortable denies any cough shortness of breath fever or chills, chest x-ray done today shows slight improvement in pneumonia will continue present management repeat chest x-ray again on Saturday to further evaluate, right lower extremity cellulitis is improving. patient also had complained of right elbow pain was seen by orthopedic surgeon does not need any surgical intervention continue conservative management. will have a PT OT evaluate the patient and further recommendation to follow, patient with history of proximal atrial fibrillation early today patient went into atrial fibrillation with RVR was started on diltiazem drip and transferred to IMU while on the drip patient heart rate was persisting about 100 patient was seen by desktop technician recommended to stop the diltiazem drip and started the patient on sotalol and xarelto, repeat chest x-ray on 01/17 still showed persistent pneumonia, on 01/18 patient had developed abdominal pain and imaging showed adynamic ileus, NG tube was placed, patient symptom have improved and doing well, However today agaom patient a complaint abdominal pain nausea and patient has elevated white counts, concern patient may again have ileus KUB was ordered again and KUB was again negative however patient did have BM later today, A chest x-ray was clear was done on 01/24 which also showed improvement pneumonia however patient overall is not feeling very well and appears ill,Patient is seen by Cardiology and further recommendation to follow, will continue to monitor patient and further recommendation to follow (2) Syncope and collapse: Code(s): R55 - Syncope and collapse Status: Acute Assessment and Plan: Patient has grade 1 diastolic dysfunction unlikely cardiac cause of syncope. (3) Leukocytosis: Code(s): D72.829 - Elevated white blood cell count, unspecified Status: Acute Assessment and Plan: Secondary to cellulitis. (4) Hypertension: Qualifiers: Hypertension type: unspecified Q
[2020-01-26] MEDS: RIVAROXABAN 20 MG TABLET PO (16:29)
[2020-01-26] MEDS: DOCUSATE SODIUM 100 MG CAPSULE PO (21:57)
[2020-01-27] VITALS (14 sets, daily range): BP systolic 117–127; BP diastolic 53–68; PULSE 65–75; RESP 15–22; TEMP 36.3–37.1; O2SAT 92–97
[2020-01-27 05:46] LABS: Hematocrit 30.1 % (42.0-52.0); Mean Corpuscular HGB Conc 33.2 g/dl (32-36); Mean Corpuscular Hemoglobin 32.9 pg (26-34); Mean Platelet Volume 11.3 fl (7.4-10.4); Platelet Count Result 172 k/mm3 (150-375); Red Blood Count 3.04 M/mm3 (4.6-6.20); Red Cell Distribution Width 13.9 % (11.5-14.5)
[2020-01-27 06:06] LABS: Anion Gap 4 mmol/L (8-16); Blood Urea Nitrogen 18 mg/dL (9-20); Calcium 7.4 mg/dL (8.4-10.2); Carbon Dioxide 27 mmol/L (22-30); Chloride 98 mmol/L (98-107); Estimated CRCL calculation 113 ml/min; Estimated Glomerular Filt Rate > 60; Glucose 112 mg/dL (75-110); Potassium 3.2 mmol/L (3.4-5.0); Sodium 129 mmol/L (137-145)
[2020-01-27] MEDS: SODIUM CHLORIDE 0.9% IV 1,000 ML 100 ML IV CONT ×2 (08:29→22:33)
[2020-01-27] MEDS: DOCUSATE SODIUM 100 MG CAPSULE PO ×2 (08:31→20:19)
[2020-01-27] MEDS: MAGNESIUM OXIDE 400 MG TABLET PO (08:31)
[2020-01-27] MEDS: POTASSIUM CHLORIDE 20 MEQ TABLET 40 MEQ PO ×2 (08:31→18:45)
[2020-01-27] MEDS: PANTOPRAZOLE SODIUM IV 40 MG VIAL IV PUSH ×2 (08:32→20:19)
[2020-01-27] MEDS: LIDOCAINE 5% PATCH 2 PATCH TRANSDERM (08:32)
[2020-01-27] MEDS: SOTALOL HCL 80 MG TABLET PO (11:32)
--- NOTE | 2020-01-27 12:23 | PM.IMPN ---
Progress Note: A&P Assessment and Plan (1) Cellulitis of right leg: Code(s): L03.115 - Cellulitis of right lower limb Status: Acute Assessment and Plan: Continue IV clindamycin. Blood cultures isnegative . Pain control as needed. Antipyretics as needed. follow 01/27/20 12:23 Admit to med-surg, Continue IV antibiotics. Blood cultures pending. Check RLE dopper U/S in am to rule out DVT. Pain control as needed. Antipyretics as needed. patient is 74-year-old male with history of hypertension atrial fibrillation for which he is taking Eliquis was brought to emergency department after had fallen and was found on the floor, patient states on and off he feels dizzy and fall, he denies any associated symptoms of chest pain palpitation fever or chills, room is not moving, he just feels lightheaded, his legs are weak he falls, patient had CT scan of the head which was essentially normal for any acute injury, patient had x-ray of the shoulder, and hip and pelvis there is no acute bony fracture, to further evaluate patient had a cardiac echo and carotid ultrasound, carotid ultrasound is negative for any significant stenosis, cardiac echo is pending, patient is also found to have right lower extremity swelling tenderness and erythema, diagnosed with cellulitis being treated with clindamycin, had a lower extremity Doppler to rule out DVT which is negative. today patient states the pain in right leg is improved, however complains of pain in right elbow and painful to move, he also complains of loose bowel movement which are persisting for last 2 months he was seen at the [facility] and was told and further infectious but no detail, will do the stool culture, currently patient is on clindamycin for cellulitis, yesterday patient was having shortness of breath chest x-ray showed pneumonia patient is currently on clindamycin we added did throw mycin to cover for atypical, today patient is much more comfortable denies any cough shortness of breath fever or chills, chest x-ray done today shows slight improvement in pneumonia will continue present management repeat chest x-ray again on Saturday to further evaluate, right lower extremity cellulitis is improving. patient also had complained of right elbow pain was seen by orthopedic surgeon does not need any surgical intervention continue conservative management. will have a PT OT evaluate the patient and further recommendation to follow, patient with history of proximal atrial fibrillation early today patient went into atrial fibrillation with RVR was started on diltiazem drip and transferred to IMU while on the drip patient heart rate was persisting about 100 patient was seen by sr technical sales consultant recommended to stop the diltiazem drip and started the patient on sotalol and xarelto, repeat chest x-ray on 01/17 still showed persistent pneumonia, on 01/18 patient had developed abdominal pain and imaging showed adynamic ileus, NG tube was placed, patient symptom have improved and doing well, However today agaom patient a complaint abdominal pain nausea and patient has elevated white counts, concern patient may again have ileus KUB was ordered again and KUB was again negative however patient did have BM later, A chest x-ray was clear was done on 01/24 which also showed improvement pneumonia however patient overall is not feeling very well and appears ill, it is possible sotolol patient is taking may make patient tired and fatigue, Patient is seen by Cardiology and further recommendation to follow, patient sodium is trending down and his po intake is poor, start low dose of NS at 100cc per hour and will continue to monitor patient and further recommendation to follow (2) Syncope and collapse: Code(s): R55 - Syncope and collapse Status: Acute Assessment and Plan: Patient has grade 1 diastolic dysfunction unlikely cardiac cause of syncope. (3) Leukocytosis: Code(s): D72.829 - Elevated white blood cell co
--- NOTE | 2020-01-27 15:52 | PM.PNCARD ---
Progress Note: A&P Assessment and Plan (1) Atrial fibrillation: Qualifiers: Atrial fibrillation type: unspecified Qualified Code(s): I48.91 - Unspecified atrial fibrillation Code(s): I48.91 - Unspecified atrial fibrillation Status: Resolved Assessment and Plan: PAF, converted to sinus rhythm 01/20/2020 QTc 01/26/2020 473 ms. It is possible that the sotalol is causing his lethargy. Will decrease to 40 mg every 12 hours starting tomorrow. Will not given dose this evening. Continue Xarelto. (2) Abdominal pain: Code(s): R10.9 - Unspecified abdominal pain Status: Acute Assessment and Plan: Ileus resolved . Tolerating diet. (3) Cellulitis of right leg: Code(s): L03.115 - Cellulitis of right lower limb Status: Acute Assessment and Plan: On antibiotics, care per hospitalists. (4) Hypokalemia: Code(s): E87.6 - Hypokalemia Status: Acute Assessment and Plan: Down to 3.2 again today. Supplemented with 40 mEq this morning. Will given additional 40 mEq this afternoon. Additional Plan Plan discussed with Dr. Delaney 1600 01/27/2020 Subjective Date/time seen: 01/27/20 15:52 Interval history: Follow up for: history of paroxysmal atrial fibrillation, entering the hospital after falling and had some cellulitis in the lower extremity and an ileus. He was admitted in NSR but developed a fib RVR during his hospital stay. Converted to NSR on 01/20/2020. Date of service: 01/27/2020 Subjective: Sleeping comfortably. Arouses easily but does not open eyes. Denied chest discomfort or shortness of breath. Complains of neck pain today. Review of Systems Constitutional: Constitutional: Reports fatigue Eyes: Eyes: Denies blurry vision ENT: Reports Normal hearing present, Denies lip swelling and Denies epistaxis Cardiovascular: Cardiovascular: Denies chest pain, Denies pedal edema, Denies leg edema, Denies lightheadedness, Denies palpitations, Denies dyspnea and Denies dyspnea on exertion Respiratory: Respiratory: Denies cough, Denies dyspnea, Denies dyspnea on exertion and Denies wheezing Gastrointestinal: Gastrointestinal: Denies abdominal pain and Denies nausea Genitourinary: Genitourinary: Denies hematuria and Denies dysuria Musculoskeletal: Musculoskeletal: Denies back pain and Denies arthralgias Integumentary/Breasts: Skin/Breast: Reports wounds Neurologic: Reports Normal hearing present Psychiatric: Psychiatric: Denies anxiety Endocrine: Endocrine: Reports fatigue and Denies palpitations Hematologic/Lymphatic: Hematologic/Lymphatic: Denies easy bleeding and Denies easy bruising Allergic/Immunologic: Allergic/Immunologic: Denies lip swelling and Denies wheezing Exam Const: General: comfortable, no acute distress and lethargic Nutritional Appearance: average body habitus Orientation/consciousness: lethargic Other: Breathing comfortably lying flat in bed. HENMT: General nose exam: no epistaxis Mouth: Yes moist mucous membranes Eyes: Sclera: sclerae normal Pupils: Equal, round and reactive pupils present Neck: Neck: supple and no JVD Carotids: bruit Other: Resp: Effort & Inspection: normal respiratory effort Auscultation: clear to auscultation bilaterally Cardio: Rate: regular rate Rhythm: regular rhythm GI: GI Palp: Yes Soft to palpation Auscultation: normal bowel sounds : Male General Exam: Yes normal external exam Skin: General skin exam: normal color Wounds: wounds noted ( ecchymosis of right hip and knee) Neuro: General: patient oriented x3 and other ( Lethargic) Cranial nerves: Yes Equal, round and reactive pupils present and Yes Normal hearing present Speech: normal speech Extrem: General: normal to inspection and edema ( mi
[2020-01-27] MEDS: RIVAROXABAN 20 MG TABLET PO (18:45)
[2020-01-28] VITALS (16 sets, daily range): BP systolic 113–133; BP diastolic 51–66; PULSE 67–76; RESP 16–22; TEMP 36.2–37.2; O2SAT 93–99
[2020-01-28 05:51] LABS: Hematocrit 29.9 % (42.0-52.0); Hemoglobin 9.8 g/dL (14.0-18.0); Mean Corpuscular HGB Conc 32.8 g/dl (32-36); Mean Corpuscular Hemoglobin 32.1 pg (26-34); Mean Platelet Volume 10.8 fl (7.4-10.4); Platelet Count Result 183 k/mm3 (150-375); Red Blood Count 3.05 M/mm3 (4.6-6.20); Red Cell Distribution Width 13.7 % (11.5-14.5); White Blood Count 6.4 K/mm3 (4.5-10.0)
[2020-01-28 06:02] LABS: Anion Gap 5 mmol/L (8-16); Blood Urea Nitrogen 15 mg/dL (9-20); Calcium 7.3 mg/dL (8.4-10.2); Carbon Dioxide 26 mmol/L (22-30); Chloride 99 mmol/L (98-107); Estimated CRCL calculation 113 ml/min; Estimated Glomerular Filt Rate > 60; Glucose 103 mg/dL (75-110); Potassium 3.4 mmol/L (3.4-5.0); Sodium 130 mmol/L (137-145)
[2020-01-28] MEDS: PANTOPRAZOLE SODIUM IV 40 MG VIAL IV PUSH ×2 (09:54→20:04)
[2020-01-28] MEDS: LIDOCAINE 5% PATCH 2 PATCH TRANSDERM (09:54)
[2020-01-28] MEDS: MAGNESIUM OXIDE 400 MG TABLET PO (09:54)
[2020-01-28] MEDS: SODIUM CHLORIDE 0.9% IV 1,000 ML 100 ML IV CONT ×2 (09:58→20:03)
[2020-01-28] MEDS: POTASSIUM CHLORIDE 20 MEQ PACKET (FOR LIQUID) 40 MEQ PO (09:58)
[2020-01-28] MEDS: DOCUSATE SODIUM 100 MG CAPSULE PO ×2 (10:06→20:05)
--- NOTE | 2020-01-28 10:22 | PCNFU ---
Nutrition Follow-Up Complete: Inadequate Oral Intake as related to left knee hematoma as related to poor po intake and weight loss of 15 lbs in the past 3 months. Goal: Adequate Intake of at least 75% of meals/supplements Patient is progressing towards goal. Patient reports eating 75-100% of meals. States appetite has improved. Reports dislike of Ensure clear. Pt current nutrition is Clear Liquid. Nutrition recommendation: According to career development manager note, pt is going to [facility] hospice. If plan does not occur and aggressive nutrition support is needed recommend TPN. Will provide recommendations upon need for TPN. Last recorded weight is 91.5 kg. Weight has remained stable. Bowel Motility: last bowel movement documented on 01/28/20 Labs Reviewed: Hgb (9.8) Hct (29.9) Na (130) Cr (0.5) Ca (7.3) Meds Noted: Zofran, Protonix, Normal Saline at 100 mL/hr, Symbicort, Colace, Atrovent, Loperamide, Magnesium Oxide, Betapace, KCL Powder Additional Notes: Reddened groin, right hip bruise, maceration on coccyx, left elbow abrasion, both knees and head scab well approximated according to integumentary assessment. No albumin available for calcium correction. RD will monitor every 5 days
[2020-01-28] MEDS: SOTALOL HCL 40 MG TABLET PO ×2 (10:31→20:05)
--- NOTE | 2020-01-28 12:09 | PCNSR ---
On 01/28/20, the student, Justice Blackburn, provided care and completed [facility]. I have reviewed the student's documentation and agree with the findings.
[2020-01-28 13:44] LABS: SARS-CoV-2 RNA PCR Negative
--- NOTE | 2020-01-28 13:51 | PM.PNCARD ---
Progress Note: A&P Assessment and Plan (1) Atrial fibrillation: Qualifiers: Atrial fibrillation type: unspecified Qualified Code(s): I48.91 - Unspecified atrial fibrillation Code(s): I48.91 - Unspecified atrial fibrillation Status: Resolved Assessment and Plan: PAF, converted to sinus rhythm 01/20/2020 QTc 01/26/2020 473 ms. on low-dose sotalol. Lethargy has improved Continue Xarelto. (2) Abdominal pain: Code(s): R10.9 - Unspecified abdominal pain Status: Acute Assessment and Plan: Ileus resolved . Tolerating diet. (3) Cellulitis of right leg: Code(s): L03.115 - Cellulitis of right lower limb Status: Acute Assessment and Plan: On antibiotics, care per hospitalists. (4) Hypokalemia: Code(s): E87.6 - Hypokalemia Status: Acute Assessment and Plan: Potassium chloride 40 mEq p.o. x1 Subjective Date/time seen: 01/28/20 13:51 Interval history: Follow up for: history of paroxysmal atrial fibrillation, entering the hospital after falling and had some cellulitis in the lower extremity and an ileus. He was admitted in NSR but developed a fib RVR during his hospital stay. Converted to NSR on 01/20/2020. Date of service: 01/28/2020 Subjective: Sleeping comfortably. has some shortness of breath. Answers questions. Reportedly more awake today than when he was yesterday. Review of Systems Constitutional: Constitutional: Reports fatigue Eyes: Eyes: Denies blurry vision ENT: Reports Normal hearing present, Denies lip swelling and Denies epistaxis Cardiovascular: Cardiovascular: Denies chest pain, Denies pedal edema, Denies leg edema, Denies lightheadedness, Denies palpitations, Denies dyspnea and Denies dyspnea on exertion Respiratory: Respiratory: Denies cough, Denies dyspnea, Denies dyspnea on exertion and Denies wheezing Gastrointestinal: Gastrointestinal: Denies abdominal pain and Denies nausea Genitourinary: Genitourinary: Denies hematuria and Denies dysuria Musculoskeletal: Musculoskeletal: Denies back pain and Denies arthralgias Integumentary/Breasts: Skin/Breast: Reports wounds Neurologic: Reports Normal hearing present Psychiatric: Psychiatric: Denies anxiety Endocrine: Endocrine: Reports fatigue and Denies palpitations Hematologic/Lymphatic: Hematologic/Lymphatic: Denies easy bleeding and Denies easy bruising Allergic/Immunologic: Allergic/Immunologic: Denies lip swelling and Denies wheezing Exam Const: General: comfortable and no acute distress Nutritional Appearance: average body habitus Orientation/consciousness: patient oriented x3 Other: Breathing comfortably lying flat in bed. HENMT: General nose exam: no epistaxis Mouth: Yes moist mucous membranes Eyes: Sclera: sclerae normal Pupils: Equal, round and reactive pupils present EOM: EOMs intact bilaterally Neck: Neck: supple and no JVD Thyroid: thyroid normal Carotids: bruit Other: Resp: Effort & Inspection: normal respiratory effort Auscultation: clear to auscultation bilaterally Cardio: Rate: regular rate Rhythm: regular rhythm GI: Inspection: non-distended Auscultation: normal bowel sounds Other: abdomen soft and nontender, diminished bowel sounds : Male General Exam: Yes normal external exam Skin: General skin exam: normal color Wounds: wounds noted ( ecchymosis of right hip and knee) Neuro: General: patient oriented x3 Cranial nerves: Yes Equal, round and reactive pupils present and Yes Normal hearing present Cognition (Neuro): normal cognition Speech: normal speech Motor exam (neuro): Normal motor muscle tone present throughout Extrem: General: normal to inspection and edema ( mild lower extremity edema) Psych: Mental Status: mental status grossly normal ( though a little slow t
--- NOTE | 2020-01-28 13:59 | PM.IMPN ---
Progress Note: A&P Assessment and Plan (1) Cellulitis of right leg: Code(s): L03.115 - Cellulitis of right lower limb Status: Acute Assessment and Plan: Continue IV clindamycin. Blood cultures isnegative . Pain control as needed. Antipyretics as needed. follow 01/28/20 13:59 Admit to med-surg, Continue IV antibiotics. Blood cultures pending. Check RLE dopper U/S in am to rule out DVT. Pain control as needed. Antipyretics as needed. patient is 74-year-old male with history of hypertension atrial fibrillation for which he is taking Eliquis was brought to emergency department after had fallen and was found on the floor, patient states on and off he feels dizzy and fall, he denies any associated symptoms of chest pain palpitation fever or chills, room is not moving, he just feels lightheaded, his legs are weak he falls, patient had CT scan of the head which was essentially normal for any acute injury, patient had x-ray of the shoulder, and hip and pelvis there is no acute bony fracture, to further evaluate patient had a cardiac echo and carotid ultrasound, carotid ultrasound is negative for any significant stenosis, cardiac echo is pending, patient is also found to have right lower extremity swelling tenderness and erythema, diagnosed with cellulitis being treated with clindamycin, had a lower extremity Doppler to rule out DVT which is negative. today patient states the pain in right leg is improved, however complains of pain in right elbow and painful to move, he also complains of loose bowel movement which are persisting for last 2 months he was seen at the [facility] and was told and further infectious but no detail, will do the stool culture, currently patient is on clindamycin for cellulitis, yesterday patient was having shortness of breath chest x-ray showed pneumonia patient is currently on clindamycin we added did throw mycin to cover for atypical, today patient is much more comfortable denies any cough shortness of breath fever or chills, chest x-ray done today shows slight improvement in pneumonia will continue present management repeat chest x-ray again on Saturday to further evaluate, right lower extremity cellulitis is improving. patient also had complained of right elbow pain was seen by orthopedic surgeon does not need any surgical intervention continue conservative management. will have a PT OT evaluate the patient and further recommendation to follow, patient with history of proximal atrial fibrillation early today patient went into atrial fibrillation with RVR was started on diltiazem drip and transferred to IMU while on the drip patient heart rate was persisting about 100 patient was seen by thread laster recommended to stop the diltiazem drip and started the patient on sotalol and xarelto, repeat chest x-ray on 01/17 still showed persistent pneumonia, on 01/18 patient had developed abdominal pain and imaging showed adynamic ileus, NG tube was placed, patient symptom have improved and doing well, However today agaom patient a complaint abdominal pain nausea and patient has elevated white counts, concern patient may again have ileus KUB was ordered again and KUB was again negative however patient did have BM later, A chest x-ray was clear was done on 01/24 which also showed improvement pneumonia however patient overall is not feeling very well and appears ill, it is possible sotolol patient is taking may make patient tired and fatigue, Patient was seen by Cardiology on 01/26 and sotolol was reduced to 40mg BID from 80mg BID, Today patient's heart rate is stable and he is much more alert and communicative than he had been will continue present managed, will gently hydrate the patient his sodium is running low with poor p.o. intake, will have a PT OT evaluate the patient will benefit going into rehab. (2) Syncope and collapse: Code(s): R55 - Syncope and collapse Status: Acute Assessment and Plan: Patient has grade 1 d
[2020-01-28] MEDS: RIVAROXABAN 20 MG TABLET PO (16:41)
[2020-01-28] MEDS: POTASSIUM CHLORIDE 20 MEQ TABLET 40 MEQ PO (16:42)
[2020-01-29] VITALS (12 sets, daily range): BP systolic 130–153; BP diastolic 64–75; PULSE 63–74; RESP 12–23; TEMP 36.4–37.6; O2SAT 95–99
[2020-01-29] MEDS: SODIUM CHLORIDE 0.9% IV 1,000 ML 100 ML IV CONT ×2 (05:03→17:50)
[2020-01-29 05:37] LABS: Hematocrit 28.4 % (42.0-52.0); Hemoglobin 9.5 g/dL (14.0-18.0); Mean Corpuscular HGB Conc 33.5 g/dl (32-36); Mean Corpuscular Hemoglobin 32.6 pg (26-34); Mean Corpuscular Volume 97.6 fl (80-100); Mean Platelet Volume 10.2 fl (7.4-10.4); Platelet Count Result 182 k/mm3 (150-375); Red Blood Count 2.91 M/mm3 (4.6-6.20); Red Cell Distribution Width 13.4 % (11.5-14.5); White Blood Count 5.6 K/mm3 (4.5-10.0)
[2020-01-29 05:56] LABS: Anion Gap 4 mmol/L (8-16); Blood Urea Nitrogen 9 mg/dL (9-20); Calcium 7.1 mg/dL (8.4-10.2); Carbon Dioxide 24 mmol/L (22-30); Chloride 102 mmol/L (98-107); Estimated CRCL calculation 113 ml/min; Estimated Glomerular Filt Rate > 60; Glucose 101 mg/dL (75-110); Potassium 3.4 mmol/L (3.4-5.0); Sodium 130 mmol/L (137-145)
[2020-01-29] MEDS: POTASSIUM CHLORIDE 20 MEQ PACKET (FOR LIQUID) 40 MEQ PO (07:57)
[2020-01-29] MEDS: DOCUSATE SODIUM 100 MG CAPSULE PO (10:18)
[2020-01-29] MEDS: LIDOCAINE 5% PATCH 2 PATCH TRANSDERM (10:19)
[2020-01-29] MEDS: MAGNESIUM OXIDE 400 MG TABLET PO (10:20)
[2020-01-29] MEDS: PANTOPRAZOLE SODIUM IV 40 MG VIAL IV PUSH (10:21)
[2020-01-29] MEDS: SOTALOL HCL 40 MG TABLET PO (10:21)
--- NOTE | 2020-01-29 11:51 | PM.PNCARD ---
Progress Note: A&P Assessment and Plan (1) Atrial fibrillation: Qualifiers: Atrial fibrillation type: unspecified Qualified Code(s): I48.91 - Unspecified atrial fibrillation Code(s): I48.91 - Unspecified atrial fibrillation Status: Resolved Assessment and Plan: PAF, converted to sinus rhythm 01/20/2020 QTc 01/26/2020 473 ms. on low-dose sotalol. Lethargy has improved Continue Xarelto. (2) Abdominal pain: Code(s): R10.9 - Unspecified abdominal pain Status: Acute Assessment and Plan: Ileus resolved . Tolerating diet. (3) Cellulitis of right leg: Code(s): L03.115 - Cellulitis of right lower limb Status: Acute Assessment and Plan: On antibiotics, care per hospitalists. (4) Hypokalemia: Code(s): E87.6 - Hypokalemia Status: Acute Assessment and Plan: Potassium chloride 40 mEq p.o. x1 Additional Plan Placement Subjective Date/time seen: 01/29/20 11:51 Interval history: Follow up for: history of paroxysmal atrial fibrillation, entering the hospital after falling and had some cellulitis in the lower extremity and an ileus. He was admitted in NSR but developed a fib RVR during his hospital stay. Converted to NSR on 01/20/2020. Date of service: 01/29/2020 Subjective: much more awake and alert today. No chest pain or shortness of breath. Review of Systems Constitutional: Constitutional: Reports fatigue Eyes: Eyes: Denies blurry vision ENT: Reports Normal hearing present, Denies lip swelling and Denies epistaxis Cardiovascular: Cardiovascular: Denies chest pain, Denies pedal edema, Denies leg edema, Denies lightheadedness, Denies palpitations, Denies dyspnea and Denies dyspnea on exertion Respiratory: Respiratory: Denies cough, Denies dyspnea, Denies dyspnea on exertion and Denies wheezing Gastrointestinal: Gastrointestinal: Denies abdominal pain and Denies nausea Genitourinary: Genitourinary: Denies hematuria and Denies dysuria Musculoskeletal: Musculoskeletal: Denies back pain and Denies arthralgias Integumentary/Breasts: Skin/Breast: Reports wounds Neurologic: Reports Normal hearing present Psychiatric: Psychiatric: Denies anxiety Endocrine: Endocrine: Reports fatigue and Denies palpitations Hematologic/Lymphatic: Hematologic/Lymphatic: Denies easy bleeding and Denies easy bruising Allergic/Immunologic: Allergic/Immunologic: Denies lip swelling and Denies wheezing Exam Const: General: comfortable and no acute distress Nutritional Appearance: average body habitus Orientation/consciousness: patient oriented x3 Other: Breathing comfortably lying flat in bed. HENMT: General nose exam: no epistaxis Mouth: Yes moist mucous membranes Eyes: Sclera: sclerae normal Pupils: Equal, round and reactive pupils present EOM: EOMs intact bilaterally Neck: Neck: supple and no JVD Thyroid: thyroid normal Carotids: bruit Other: Resp: Effort & Inspection: normal respiratory effort Auscultation: clear to auscultation bilaterally Cardio: Rate: regular rate Rhythm: regular rhythm GI: Inspection: non-distended Auscultation: normal bowel sounds Other: abdomen soft and nontender, diminished bowel sounds : Male General Exam: Yes normal external exam Skin: General skin exam: normal color Wounds: wounds noted ( ecchymosis of right hip and knee) Neuro: General: patient oriented x3 Cranial nerves: Yes Equal, round and reactive pupils present and Yes Normal hearing present Cognition (Neuro): normal cognition Speech: normal speech Motor exam (neuro): Normal motor muscle tone present throughout Extrem: General: normal to inspection and edema ( mild lower extremity edema) Psych: Mental Status: mental status grossly normal ( though a little slo
--- NOTE | 2020-01-29 11:55 | PM.IMPN ---
Progress Note: A&P Assessment and Plan (1) Cellulitis of right leg: Code(s): L03.115 - Cellulitis of right lower limb Status: Acute Assessment and Plan: Continue IV clindamycin. Blood cultures isnegative . Pain control as needed. Antipyretics as needed. follow 01/29/20 11:55 Admit to med-surg, Continue IV antibiotics. Blood cultures pending. Check RLE dopper U/S in am to rule out DVT. Pain control as needed. Antipyretics as needed. patient is 74-year-old male with history of hypertension atrial fibrillation for which he is taking Eliquis was brought to emergency department after had fallen and was found on the floor, patient states on and off he feels dizzy and fall, he denies any associated symptoms of chest pain palpitation fever or chills, room is not moving, he just feels lightheaded, his legs are weak he falls, patient had CT scan of the head which was essentially normal for any acute injury, patient had x-ray of the shoulder, and hip and pelvis there is no acute bony fracture, to further evaluate patient had a cardiac echo and carotid ultrasound, carotid ultrasound is negative for any significant stenosis, cardiac echo is pending, patient is also found to have right lower extremity swelling tenderness and erythema, diagnosed with cellulitis being treated with clindamycin, had a lower extremity Doppler to rule out DVT which is negative. today patient states the pain in right leg is improved, however complains of pain in right elbow and painful to move, he also complains of loose bowel movement which are persisting for last 2 months he was seen at the [facility] and was told and further infectious but no detail, will do the stool culture, currently patient is on clindamycin for cellulitis, yesterday patient was having shortness of breath chest x-ray showed pneumonia patient is currently on clindamycin we added did throw mycin to cover for atypical, today patient is much more comfortable denies any cough shortness of breath fever or chills, chest x-ray done today shows slight improvement in pneumonia will continue present management repeat chest x-ray again on Saturday to further evaluate, right lower extremity cellulitis is improving. patient also had complained of right elbow pain was seen by orthopedic surgeon does not need any surgical intervention continue conservative management. will have a PT OT evaluate the patient and further recommendation to follow, patient with history of proximal atrial fibrillation early today patient went into atrial fibrillation with RVR was started on diltiazem drip and transferred to IMU while on the drip patient heart rate was persisting about 100 patient was seen by water restoration technician recommended to stop the diltiazem drip and started the patient on sotalol and xarelto, repeat chest x-ray on 01/17 still showed persistent pneumonia, on 01/18 patient had developed abdominal pain and imaging showed adynamic ileus, NG tube was placed, patient symptom have improved and doing well, However today agaom patient a complaint abdominal pain nausea and patient has elevated white counts, concern patient may again have ileus KUB was ordered again and KUB was again negative however patient did have BM later, A chest x-ray was clear was done on 01/24 which also showed improvement pneumonia however patient overall is not feeling very well and appears ill, it is possible sotolol patient is taking may make patient tired and fatigue, Patient was seen by Cardiology on 01/26 and sotolol was reduced to 40mg BID from 80mg BID, Today patient's heart rate is stable and he is much more alert and communicative than he had been will continue present managed, will gently hydrate the patient his sodium is running low with poor p.o. intake, patient is a resident of assisted living and would like to go back to his apartmen, will have a PT OT evaluate the patient, will benefit going into rehab. (2) Syncope and collapse: Code(s): R55 - S
--- NOTE | 2020-01-29 15:35 | PM.DS ---
DS: Admitting Diagnosis Admitting Diagnosis Admitting Diagnosis: frequent falls, right leg cellulitis, weakness DS: Discharge Diagnosis Discharge Diagnosis (1) Cellulitis of right leg: Code(s): L03.115 - Cellulitis of right lower limb Status: Acute Assessment and Plan: Continue IV clindamycin. Blood cultures isnegative . Pain control as needed. Antipyretics as needed. follow 01/29/20 11:55 Admit to med-surg, Continue IV antibiotics. Blood cultures pending. Check RLE dopper U/S in am to rule out DVT. Pain control as needed. Antipyretics as needed. patient is 74-year-old male with history of hypertension atrial fibrillation for which he is taking Eliquis was brought to emergency department after had fallen and was found on the floor, patient states on and off he feels dizzy and fall, he denies any associated symptoms of chest pain palpitation fever or chills, room is not moving, he just feels lightheaded, his legs are weak he falls, patient had CT scan of the head which was essentially normal for any acute injury, patient had x-ray of the shoulder, and hip and pelvis there is no acute bony fracture, to further evaluate patient had a cardiac echo and carotid ultrasound, carotid ultrasound is negative for any significant stenosis, cardiac echo is pending, patient is also found to have right lower extremity swelling tenderness and erythema, diagnosed with cellulitis being treated with clindamycin, had a lower extremity Doppler to rule out DVT which is negative. today patient states the pain in right leg is improved, however complains of pain in right elbow and painful to move, he also complains of loose bowel movement which are persisting for last 2 months he was seen at the [facility] and was told and further infectious but no detail, will do the stool culture, currently patient is on clindamycin for cellulitis, yesterday patient was having shortness of breath chest x-ray showed pneumonia patient is currently on clindamycin we added did throw mycin to cover for atypical, today patient is much more comfortable denies any cough shortness of breath fever or chills, chest x-ray done today shows slight improvement in pneumonia will continue present management repeat chest x-ray again on Saturday to further evaluate, right lower extremity cellulitis is improving. patient also had complained of right elbow pain was seen by orthopedic surgeon does not need any surgical intervention continue conservative management. will have a PT OT evaluate the patient and further recommendation to follow, patient with history of proximal atrial fibrillation early today patient went into atrial fibrillation with RVR was started on diltiazem drip and transferred to IMU while on the drip patient heart rate was persisting about 100 patient was seen by rope cleaner recommended to stop the diltiazem drip and started the patient on sotalol and xarelto, repeat chest x-ray on 01/17 still showed persistent pneumonia, on 01/18 patient had developed abdominal pain and imaging showed adynamic ileus, NG tube was placed, patient symptom have improved and doing well, However today agaom patient a complaint abdominal pain nausea and patient has elevated white counts, concern patient may again have ileus KUB was ordered again and KUB was again negative however patient did have BM later, A chest x-ray was clear was done on 01/24 which also showed improvement pneumonia however patient overall is not feeling very well and appears ill, it is possible sotolol patient is taking may make patient tired and fatigue, Patient was seen by Cardiology on 01/26 and sotolol was reduced to 40mg BID from 80mg BID, Today patient's heart rate is stable and he is much more alert and communicative than he had been will continue present managed, will gently hydrate the patient his sodium is running low with poor p.o. intake, patient is a resident of assisted living and would like to go back to his apartmen, wi
[2020-01-29] MEDS: RIVAROXABAN 20 MG TABLET PO (17:50)
== END 2020-01-29 19:45 | DRG 602 ==
LOC: ANHED 22:42 → ANH3MEDSUR 23:31 → ANHIMU 01-20 20:33 → ANH2MED 01-24 02:59 → ANH3MEDSUR 02-02 13:38 → ANHIMU 02-02 13:38
PROVIDERS: Family Medicine; Internal Medicine; Internal Medicine Cardiovascular Disease; Admitting Provider Family Medicine; Emergency Provider General Practice; Visit Provider Family Medicine
DX: L03.115 Cellulitis of right lower limb (principal); J18.9 Pneumonia, unspecified organism; I48.20 Chronic atrial fibrillation, unspecified; K56.0 Paralytic ileus; R55 Syncope and collapse; Z20.828 Contact with and (suspected) exposure to other viral communicable diseases; R19.7 Diarrhea, unspecified; I10 Essential (primary) hypertension; D72.829 Elevated white blood cell count, unspecified; W18.39XA Other fall on same level, initial encounter; M19.90 Unspecified osteoarthritis, unspecified site; E87.6 Hypokalemia; Z79.01 Long term (current) use of anticoagulants
CPT/HCPCS: 36415; 36600; 51701; 70450; 71045; 73030; 73080; 73502; 73590; 74018; 74177; 80048; 80053; 81001; 82550; 82805; 83605; 83735; 84132; 84443; 84484; 85025; 85027; 85610; 85730; 86140; 87015; 87040; 87269; 87272; 87635; 93005; 93306; 93880; 93971; 94640; 96361; 96365; 96366; 96367; 96375; 97110; 97116; 97162; 97165; 97530; 97535; 99285; A9270; C9113; C9803; G0378; J0456; J1650; J2405; J2930; J3480; J7030; J7060; J7120; Q9967; U0003

== ENCOUNTER 2020-02-20 10:30 | Inpatient (IN) | payer MEDICARE, OTHER, SELFPAY ==
[2020-02-20] VITALS (10 sets, daily range): BP systolic 137–157; BP diastolic 83–93; PULSE 76–100; RESP 17–20; TEMP 36.1–37.7; O2SAT 92–97; BMI 24.5
--- NOTE | ~2020-02-20 | CT_ITS ---
EXAMINATION: CT pelvis w con INDICATION: Right hip abscess TECHNIQUE: Computed tomographic images of the pelvis were obtained after the administration of 100 cc of Omnipaque 350 intravenous contrast. The dose-length product (DLP) was 908.12 mGy-cm. Automated ex posure control and iterative reconstruction technique were employed. COMPARISON: 01/19/2020 FINDINGS: There is a 10.4 x 9.7 cm complex fluid collection containing gas in the right buttock invol ving the subcutaneous tissues in the gluteus gavino muscle. There are some areas of internal high at tenuation. There is mild right inguinal lymphadenopathy. No dilated loops of bowel are evident. There is no fracture or underlying osseous abnormality. Small hydroceles are noted. There is calcified ath erosclerosis. IMPRESSION: 1. Findings consistent with abscess and possibly infected hematoma involving the right gluteus maximu s muscle and right buttock soft tissues. 2. Mild right inguinal lymphadenopathy, likely reactive. Reviewed, dictated and finalized at location A. IMPRESSION: 1. Findings consistent with abscess and possibly infected hematoma involving th e right gluteus gavino muscle and right buttock soft tissues. 2. Mild right inguinal lymphadenopathy, likely reactive.
--- NOTE | ~2020-02-20 | CT_ITS ---
EXAMINATION: CT chest wo con DATE: 02/20/2020 11:20 INDICATION: Fever, shortness of breath and altered mental status TECHNIQUE: Computed tomography (CT) of the chest was performed without intravenous contrast. The dose -length product was 378.24 mGy-cm. Automated exposure control and iterative reconstruction technique were employed. COMPARISON: Chest x-ray dated 01/25/2020 FINDINGS: There is atherosclerosis. Heart size normal. Small hiatal hernia with fluid in the esophagu s, consistent with reflux. No lymphadenopathy. There is bilateral lower lobe airspace consolidation, consistent with pneumonia. There are bilateral calcified pleural plaques, consistent with previous as bestos exposure. No endobronchial lesions. 3 mm right upper lobe nodule, likely benign. IMPRESSION: 1. Bilateral lower lobe airspace consolidation, consistent with pneumonia. 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 Reviewed, dictated and finalized at location A. IMPRESSION: 1. Bilateral lower lobe airspace consolidation, consistent with pneumonia. 2: Calcified bilateral pleural plaques, consistent with previous asbestos expo sure.
--- NOTE | ~2020-02-20 | CT_ITS ---
EXAMINATION: CT brain wo con DATE: 02/20/2020 11:20 INDICATION: Fever, shortness of breath and altered mental status TECHNIQUE: Computed tomography (CT) of the head was performed without intravenous contrast. The dose- length product was 605.33 mGy-cm. Automated exposure control and iterative reconstruction technique w ere employed. COMPARISON: CT dated 01/25/2020 FINDINGS: Generalized atrophy. There is intracranial atherosclerosis. There are scattered moderate pe riventricular and subcortical white matter changes, most likely related to small vessel ischemic dise ase (microangiopathy). No acute intracranial hemorrhage, infarction, mass or mass effect. No ventricu lomegaly. Basilar cisterns are patent. Paranasal sinuses and mastoids are pneumatized. IMPRESSION: 1. No acute intracranial abnormality. 2: Chronic age-related findings. Reviewed, dictated and finalized at location A.
--- NOTE | ~2020-02-20 | XR_ITS ---
EXAMINATION: XR fl Dobhoff insert/rad w img DATE: 02/29/2020 12:56 INDICATION: Dysphagia. Previous Dobbhoff tube pulled out. TECHNIQUE: A Dobbhoff type feeding tube was advanced into the duodenum utilizing intermittent fluoros copy. Final image demonstrates the feeding tube in position with the weighted tip at the expected loc ation of the ligament of Treitz with some redundancy within the body of the stomach. The tube was fl ushed with 10 mL sterile saline and fixed with adhesive tape to the existing nasogastric tube which i s itself affixed to the nares with adhesive tape. A single fluoroscopic image was recorded. The amoun t of fluoroscopy time used during this procedure was 4.4 minutes. There were no immediate competition s. FINDINGS/IMPRESSION: Successful fluoroscopy-guided Dobbhoff feeding tube placement into the stomach. Despite multiple atte mpts the tube was unable to be advanced further into the duodenum. Some redundancy was left in the in tragastric portion of the tube to allow for further passive advancement with peristalsis. Could consi ana follow-up KUB to assess for any progression. Reviewed, dictated and finalized at location A.
--- NOTE | ~2020-02-20 | XR_ITS ---
EXAMINATION: XR abdomen NG/feed tube insert INDICATION: Nasogastric tube insertion TECHNIQUE: Portable AP KUB-NG at 2113 hours COMPARISON: None available FINDINGS: The nasogastric tube is in the stomach. There are no dilated loops of bowel. Contrast from earlier CT examination partially opacifies the urinary tract. There are airspace opacities of the sowmya g bases. IMPRESSION: 1. Nasogastric tube in the stomach. Reviewed, dictated and finalized at location A.
--- NOTE | ~2020-02-20 | XR_ITS ---
EXAMINATION: XR barium swallow modified EXAM DATE: 02/25/2020 11:32 INDICATION: Impaired swallowing ability. Dysphagia. TECHNIQUE: Modified barium esophagram was performed by myself to administered fluoroscopy, in conjun ction with speech pathologist who administered barium in varying consistencies as per speech patholog ist documentation. This was recorded on tape. The DAP for this procedure was 0.2 Gycm2. FINDINGS: Laryngeal penetration: Demonstrated, eliciting cough. Aspiration: None. Laryngeal sensitivity: Present. IMPRESSION: Incomplete evaluation. Please refer to speech pathologist findings and specific feeding r ecommendations. Reviewed, dictated and finalized at location A. IMPRESSION: Incomplete evaluation. Please refer to speech pathologist findings and specific feeding recommendations.
--- NOTE | ~2020-02-20 | US_ITS ---
EXAMINATION: US soft tissue head and neck INDICATION: Left neck lump TECHNIQUE: Targeted high-resolution ultrasound is performed in the area of clinical concern. COMPARISON: None available FINDINGS: The left parotid gland is seen in the area of clinical concern. No sonographically detected masses identified. Vascularity appears normal. IMPRESSION: 1. No suspicious mass identified. Reviewed, dictated and finalized at location A.
--- NOTE | ~2020-02-20 | XR_ITS ---
EXAMINATION: XR fl Dobhoff insert/rad w img DATE: 02/25/2020 17:02 INDICATION: Inability to swallow TECHNIQUE: A Dobbhoff type feeding tube was advanced into the duodenum utilizing intermittent fluoroscopy. Final image demonstrates the feeding tube in position with the weighted tip at the expected location of th e ligament of Treitz. The tube was flushed with 10 mL sterile saline and fixed with adhesive tape to the existing nasogastric tube which is itself affixed to the nares with adhesive tape. 2 fluoroscopic images were recorded. The amount of fluoroscopy time used during this procedure was 1.0 minutes. The re were no immediate competitions. FINDINGS/IMPRESSION: Successful fluoroscopy-guided Dobbhoff feeding tube placement with distal tip in the fourth portion o f the duodenum. The previously placed nasogastric tube can be seen with the distal tip in proximal si de port in the body of the stomach. Reviewed, dictated and finalized at location A.
--- NOTE | 2020-02-20 10:36 | ECG_ITS ---
Measurements Intervals [place] Rate: 98 P: 28 AR: 115 QRS: 74 QRSD: 125 T: 5 QT: 363 QTc: 464 Interpretive Statements SINUS RHYTHM WITH SHORT AR INTERVAL RIGHT BUNDLE BRANCH BLOCK ST-T WAVE ABNORMALITY IN ANTEROLAT/INF LEADS- CONSIDER ISCHEMIA BASELINE WANDER- II, III ABNORMAL ECG Electronically Signed On 02-20-2020 10:55:30 CDT by Hermelindo Mauro D.O.
--- NOTE | 2020-02-20 10:46 | ED.GENADULT ---
HPI - General Adult General Chief complaint: Abdominal Pain Stated complaint: vomiting Time Seen by Provider: 02/20/20 10:35 History of Present Illness HPI narrative: Patient is a 74-year-old male brought in by EMS secondary to vomiting and fever x1 day. Patient is a [facility] resident he is nonverbal and bedridden unable to obtain any history from the patient. Patient has a history of CVA atrial fib on Xarelto. Related Data Allergies Allergy/AdvReac Type Severity Reaction Status Date / Time Penicillins Allergy Unknown Unknown Verified 01/12/20 19:43 Review of Systems Review of Systems: All systems reviewed & are unremarkable except as noted in HPI and below ROS unobtainable: Yes unobtainable due to mental status PMFSH Social History Social History Smoking status: Never smoker Alcohol intake: never Substance use: never Substance use type: does not use Gender identity (if verbalized by the patient): Male Spiritual care concerns: No Exam Const: Limitations: altered mental status Other: moderate distress, frail, ill appearing HENMT: Ears: external ears normal General nose exam: Normal nares present Face and sinus: normal facial exam Mouth: Yes dry mucous membranes Eyes: Conjunctivae: conjunctivae normal Pupils: Equal, round and reactive pupils present Neck: Neck: normal visual inspection and no lymphadenopathy Chest: Chest palpation & inspection: normal inspection of the chest Resp: Effort & Inspection: normal respiratory effort, not labored, no retractions, not tachypneic and no use of accessory muscles Auscultation: no crackles, no rales, rhonchi and no wheezes Cardio: Rate: bradycardic and tachycardic Rhythm: regular rhythm and abnormal rhythm Other: Irregularly irregular rhythm GI: GI Palp: Yes Soft to palpation, No Guarding due to palpation present (GI) and No Rigid due to palpation Auscultation: normal bowel sounds Skin: General skin exam: normal color Neuro: Other: lethargic, non verbal, unable to follow commands Course Course Emergency Course: Discussed with the hospitalist and accepted the admit Vital Signs Vital signs: Vital Signs Temperature 36.6 C 02/20/20 10:28 Pulse Rate 100 02/20/20 10:28 Blood Pressure 139/93 H 02/20/20 10:28 Pulse Oximetry 92 02/20/20 10:28 Temperature 36.6 C 02/20/20 10:28 Pulse Rate 87 02/20/20 12:54 Respiratory Rate 02/20/20 12:54 Blood Pressure 144/83 H 02/20/20 12:54 Pulse Oximetry 92 02/20/20 12:54 Medical Decision Making Differential Diagnosis Differential Diagnosis: Sepsis pneumonia urinary tract infection electrolyte abnormality viral infection/illness gastroenteritis Medical Records Medical records reviewed: Yes I reviewed the patient's medical records. Vital Signs Vital Signs: Vital Signs Temperature 36.6 C 02/20/20 10:28 Pulse Rate 100 02/20/20 10:28 Blood Pressure 139/93 H 02/20/20 10:28 Pulse Oximetry 92 02/20/20 10:28 Temperature 36.6 C 02/20/20 10:28 Pulse Rate 87 02/20/20 12:54 Respiratory Rate 02/20/20 12:54 Blood Pressure 144/83 H 02/20/20 12:54 Pulse Oximetry 92 02/20/20 12:54 Lab Data Lab results reviewed: Yes I reviewed the patient's lab results. Result diagrams: 02/20/20 11:30 02/20/20 11:30 Labs: Lab Results 02/20/20 02/20/20 02/20/20 Range/Units 11:30 11:30 11:30 WBC 33.5 H (4.5-10.0) K/mm3 RBC 4.64 (4.6-6.20) M/mm3 Hgb 14.8 D (14.0-18.0) g/dL Hct 47.0 (42.0-52.0) % MCV 101.3 H (80-100) fl MCH 31.9 (26-34) pg MCHC 31.5 L (32-36) g/dl RDW 15.9 H (11.5-14.5) % Plt Count 385 H D (150-375) k/mm3 MPV 10.4 (7.4-10.4) fl Immature Gran % (Auto) 1.6 H (0-0.5) % Neut % (Auto) 85.0 H (45.5-73.1) % Lymph % (Auto) 6.3 L (18.3-44.2) % [place] % (Auto) 6.5 (2.6-8.5) % Eos % (Auto) 0.3 (0-4.4)
[2020-02-20 11:41] LABS: Basophils Absolute Auto 0.1 K/mm3 (0.0-0.1); Basophils Percent Auto 0.3 % (0.2-1.2); Eosinophils Absolute Auto 0.1 K/mm3 (0-0.3); Eosinophils Percent Auto 0.3 % (0-4.4); Hemoglobin 14.8 g/dL (14.0-18.0); Immature Granulocyte Absolute 0.53 K/mm3 (0.00-0.031); Immature Granulocyte Percent A 1.6 % (0-0.5); Lymphocytes Absolute Auto 2.11 K/mm3 (0.9-3.2); Lymphocytes Percent Auto 6.3 % (18.3-44.2); Mean Corpuscular HGB Conc 31.5 g/dl (32-36); Mean Corpuscular Hemoglobin 31.9 pg (26-34); Mean Corpuscular Volume 101.3 fl (80-100); Mean Platelet Volume 10.4 fl (7.4-10.4); Monocytes Absolute Auto 2.2 K/mm3 (0.1-0.6); Monocytes Percent Auto 6.5 % (2.6-8.5); Neutrophils Absolute Auto 28.4 K/mm3 (1.3-6.7); Nucleated Red Blood Cells Perc 0.1 % (0.0-0.2); Platelet Count Result 385 k/mm3 (150-375); Red Blood Count 4.64 M/mm3 (4.6-6.20); Red Cell Distribution Width 15.9 % (11.5-14.5); White Blood Count 33.5 K/mm3 (4.5-10.0)
[2020-02-20] MEDS: SODIUM CHLORIDE 0.9% IV 1,000 ML 999 ML IV CONT (11:42)
[2020-02-20 11:49] LABS: INR 1.4; Prothrombin Time 16.4 Seconds (11.1-14.7)
[2020-02-20 11:50] LABS: Partial Thromboplastin Time 34.7 SECONDS (22.3-36.8)
[2020-02-20 11:54] LABS: Alanine Aminotransferase 13 U/L (4-50); Albumin Level 3.1 g/dL (3.5-5.1); Alkaline Phosphatase 146 U/L (38-126); Anion Gap 12 mmol/L (8-16); Aspartate Amino Transferase 21 U/L (17-59); Blood Urea Nitrogen 47 mg/dL (9-20); Calcium 9.1 mg/dL (8.4-10.2); Carbon Dioxide 23 mmol/L (22-30); Chloride 108 mmol/L (98-107); Estimated CRCL calculation 81 ml/min; Estimated Glomerular Filt Rate > 60; Glucose 170 mg/dL (75-110); Potassium 3.5 mmol/L (3.4-5.0); Sodium 143 mmol/L (137-145)
[2020-02-20 12:05] LABS: Add Urine Microscopic? YES; Appearance Urine Cloudy (Clear); Bacteria Urine 3+ /hpf; Bilirubin Urine Negative (Negative); Blood Urine Negative (Negative); Color Urine Amber (Yellow); Glucose Urine UA Negative (Negative); Ketones Urine 1+ mg/dL (Negative); Leukocyte Esterase Ur 2+ LEU/UL (Negative); Mucus Urine Moderate /lpf; Nitrate Urine Negative (Negative); Protein Urine 1+ mg/dL (Negative); Specific Grav Ur 1.029 (1.001-1.035); Squamous Epithelial Cell Urine Occasional /hpf (Few); WBC Urine 51-75 /hpf
[2020-02-20 14:11] LABS: Lactic Acid Reflex 2.9 mmol/L (0.7-2.1)
[2020-02-20 15:19] LABS: Hematocrit 43.8 % (42.0-52.0); Hemoglobin 13.8 g/dL (14.0-18.0)
--- NOTE | 2020-02-20 16:08 | ADMIMU ---
This patient, Kieran Sanchez, was admitted to IMU status, and placed in Intensive Care Unit-2 at 1500. Patient/family oriented to hospital policies and general routines including ID bracelet, bed and alarms, visiting hours, pain management, procedures, bathroom and other care routines, personal items, smoking policy, room service/diet, and visiting hours. Valuables list has been completed. Information on how to activate the Rapid Response Team has been discussed. Patient/Family are encouraged to report perceived risks to care and to ask questions if they do not understand what they are told or what they should do.
--- NOTE | 2020-02-20 16:32 | PM.IMHP ---
H&P: HPI History of Present Illness Date/Time: 02/20/20 16:32 Chief complaint: SEPSIS/PNEUMONIA Narrative: Kieran Sanchez is a 74 year old male Who is from [facility]. He has been nonverbal. He answer some questions with a yes and no. The patient came from the emergency room because he had been vomiting and had a fever for 1 day. The patient has been bed ridden. the patient looks like he has abrasions to his right foot and had a large hematoma to his right hip. The right hip hematoma started gushing out pus and blood when he was moved to the ICU bed. The patient had a head CT which shows no acute intracranial abnormality and chronic age-related findings because the patient was nonverbal. The patient has a history of hypertension and atrial fibrillation. The patient is on Xarelto. He has had large of mount of blood coming out of his abscess to his right hip. The patient had been admitted here 01/02/2020 the patient was dizzy and fell at that time. The patient was just discharged from here on 01/29/2020 he had cellulitis of his lower limb his blood cultures were negative. The patient was complaining of right hip pain at that time. Orthopedic physician was consulted but there was nothing for them to see. I did not see any note about any hematoma from that time. Today the patient had a CT of the chest which was read as bilateral lower lobe airspace consolidation consistent with pneumonia. 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 Head CT was read as no acute intracranial abnormality chronic age-related findings. I did consult surgery for this large hematoma that is leaking out blood and pus. Dr. Maradiaga was notified and suggested that we place the patient on Invanz. Patient heard a been placed on vancomycin for possible pneumonia. And possible UTI. Patient's white count was noted to be 33.5. Platelet count 385. Hemoglobin 13.8 hematocrit 43.8. Patient is admitted to ICU because he is IMU status in ICU. Date of service 02/20/2020 Review of Systems Review of Systems: All systems reviewed & are unremarkable except as noted in HPI and below Constitutional: Constitutional: Reports as per HPI and Reports no additional constitutional complaints Eyes: Eyes: Reports as per HPI and Reports no additional eye complaints ENT: Reports system reviewed and no additional complaints, except as documented and Reports Normal hearing present Cardiovascular: Cardiovascular: Reports no additional cardiovascular complaints Respiratory: Respiratory: Reports no additional respiratory complaints and Reports no additional respiratory complaints Gastrointestinal: Gastrointestinal: Reports as per HPI and Reports no additional gastrointestinal complaints Musculoskeletal: Musculoskeletal: Reports no additional musculoskeletal complaints Integumentary/Breasts: Skin/Breast: Reports system reviewed and no additional complaints, except as docu and Reports as per HPI Neurologic: Reports system reviewed and no additional complaints, except as documented, Reports as per HPI and Reports Normal hearing present Psychiatric: Psychiatric: Reports no additional psychiatric complaints and Reports as per HPI Endocrine: Endocrine: Reports no additional endocrine complaints Hematologic/Lymphatic: Hematologic/Lymphatic: Reports no additional hematologic/lymphatic complaints Allergic/Immunologic: Allergic/Immunologic: Reports no additional allergic/immunologic complaints [facility] Past Medical History Medical History (Updated 02/20/20 @ 17:22 by Edita Stauffer NP) Atrial fibrillation paroxysmal Congestive heart failure grade 1 diastolic dysfunction Hypertension Surgical History Surgical History (Updated 02/20/20 @ 17:16 by Edita Stauffer NP) Surgical history unknown Family History Family History Sibling Hypertension Patient's brother is in goo
[2020-02-20 16:57] LABS: Reflex Lactic Acid Yes or No Add Lactic
[2020-02-20] MEDS: LACTATED RINGERS 1,000 ML 100 ML IV CONT (17:43)
[2020-02-20] MEDS: ERTAPENEM 1 GM/NS 50 ML 1 GM/50 ML BAG IVPB (17:43)
[2020-02-20] MEDS: LACTATED RINGERS 1,000 ML 999 ML IV CONT (17:43)
[2020-02-20 18:19] LABS: Lactic Acid 4.1 mmol/L (0.7-2.1)
[2020-02-20] MEDS: ONDANSETRON INJ 4 MG/2 ML VIAL IV PUSH (20:16)
[2020-02-20 20:55] LABS: SARS-CoV-2 RNA PCR Negative
[2020-02-20] MEDS: PANTOPRAZOLE SODIUM IV 40 MG VIAL IV PUSH (21:14)
[2020-02-20] MEDS: SOTALOL HCL 40 MG TABLET PO (22:00)
--- NOTE | 2020-02-20 23:47 | PC.NURSE ---
This patient, Kieran Sanchez, was received from ICU-2 on 02/20/20 at 2220. Report obtained from BRIDGER Gaviria. Personal belongings list checked and signed. Patient/family oriented to unit policies and routines
[2020-02-21] VITALS (18 sets, daily range): BP systolic 131–168; BP diastolic 57–92; PULSE 60–87; RESP 16–20; TEMP 35.9–36.4; O2SAT 95–98
[2020-02-21] MEDS: LACTATED RINGERS 1,000 ML 100 ML IV CONT ×3 (04:57→20:33)
[2020-02-21 05:13] LABS: Basophils Percent Auto 0.2 % (0.2-1.2); Hematocrit 40.9 % (42.0-52.0); Hemoglobin 12.7 g/dL (14.0-18.0); Immature Granulocyte Absolute 0.26 K/mm3 (0.00-0.031); Immature Granulocyte Percent A 1.1 % (0-0.5); Lymphocytes Absolute Auto 1.81 K/mm3 (0.9-3.2); Lymphocytes Percent Auto 7.5 % (18.3-44.2); Mean Corpuscular HGB Conc 31.1 g/dl (32-36); Mean Corpuscular Hemoglobin 31.5 pg (26-34); Mean Corpuscular Volume 101.5 fl (80-100); Mean Platelet Volume 10.2 fl (7.4-10.4); Monocytes Absolute Auto 1.5 K/mm3 (0.1-0.6); Monocytes Percent Auto 6.2 % (2.6-8.5); Neutrophils Absolute Auto 20.5 K/mm3 (1.3-6.7); Platelet Count Result 285 k/mm3 (150-375); Red Blood Count 4.03 M/mm3 (4.6-6.20); Red Cell Distribution Width 15.3 % (11.5-14.5); White Blood Count 24.1 K/mm3 (4.5-10.0)
[2020-02-21 05:26] LABS: Lactic Acid Reflex 2.4 mmol/L (0.7-2.1)
[2020-02-21 05:33] LABS: Alanine Aminotransferase 11 U/L (4-50); Albumin Level 2.6 g/dL (3.5-5.1); Alkaline Phosphatase 112 U/L (38-126); Anion Gap 2 mmol/L (8-16); Aspartate Amino Transferase 20 U/L (17-59); Bilirubin,Total 0.5 mg/dL (0.2-1.3); Blood Urea Nitrogen 47 mg/dL (9-20); Calcium 8.7 mg/dL (8.4-10.2); Carbon Dioxide 30 mmol/L (22-30); Chloride 109 mmol/L (98-107); Estimated CRCL calculation 110 ml/min; Estimated Glomerular Filt Rate > 60; Glucose 154 mg/dL (75-110); Magnesium 2.6 mg/dL (1.6-2.3); Phosphorus 2.6 mg/dL (2.5-4.5); Potassium 3.2 mmol/L (3.4-5.0); Sodium 141 mmol/L (137-145)
[2020-02-21 08:08] LABS: Reflex Lactic Acid Yes or No Add Lactic
[2020-02-21 08:42] LABS: Lactic Acid 1.9 mmol/L (0.7-2.1)
[2020-02-21] MEDS: DOCUSATE SODIUM 100 MG CAPSULE PO ×2 (08:50→20:34)
[2020-02-21] MEDS: SERTRALINE HCL 50 MG TABLET PO (08:51)
[2020-02-21] MEDS: SOTALOL HCL 40 MG TABLET PO ×2 (08:51→20:34)
[2020-02-21] MEDS: MAGNESIUM OXIDE 400 MG TABLET PO (08:51)
[2020-02-21] MEDS: PANTOPRAZOLE SODIUM IV 40 MG VIAL IV PUSH ×2 (08:52→20:34)
--- NOTE | 2020-02-21 12:48 | WPDGICN ---
Assessment and Plan Assessment and plan (1) Nausea and vomiting in adult: Code(s): R11.2 - Nausea with vomiting, unspecified Status: Acute Assessment and Plan: probably from sepsis medical management no need to proceed with egd start diet when more awake and less nauseous antiemetics prn (2) Sepsis: Qualifiers: Sepsis acute organ dysfunction status: unspecified Sepsis type: sepsis due to unspecified organism Qualified Code(s): A41.9 - Sepsis, unspecified organism Code(s): A41.9 - Sepsis, unspecified organism Status: Acute Assessment and Plan: with large abscess in right buttock continue with iv antibiotics also surgery on board (3) Abscess of right buttock: Code(s): L02.31 - Cutaneous abscess of buttock Status: Acute (4) Leukocytosis: Code(s): D72.829 - Elevated white blood cell count, unspecified Status: Acute Assessment and Plan: continue to monitor (5) Atrial fibrillation: Qualifiers: Atrial fibrillation type: unspecified Qualified Code(s): I48.91 - Unspecified atrial fibrillation Code(s): I48.91 - Unspecified atrial fibrillation Status: Resolved (6) Dementia: Code(s): F03.90 - Unspecified dementia without behavioral disturbance Status: Acute GI Consult Note Consult date/time: 02/21/20 12:48 Reason for consult: nausea and vomiting HPI: Kieran Sanchez is a 74 year old male who is a [employer] and is nonverbal therefore history obtained from records and from his nurse in the floor. He was sent to emergency room because new onset of vomiting and had a fever for 1 day. He is bed ridden. Physical exam showed a large hematoma to his right buttock area, it was drained and noted large amount of pus and blood. He was evaluated by surgery and is on antibiotics now. Review of Systems Review of Systems: ROS unobtainable: Yes unobtainable due to mental status PMFSH Past Medical History Medical History (Updated 02/21/20 @ 12:54 by Vu Haider MD) Abscess of right buttock Atrial fibrillation paroxysmal Congestive heart failure grade 1 diastolic dysfunction Dementia Hypertension Nausea and vomiting in adult Surgical History Surgical History (Updated 02/20/20 @ 17:16 by Edita Stauffer NP) Surgical history unknown Family History Family History Sibling Hypertension Patient's brother is in good health Father Family history of lung cancer Patient's father is Mother Family history of renal failure Patient's mother is Social History Social History (Updated 02/20/20 @ 17:17 by Edita Stauffer NP) Social History: the patient tells me that he has no children. He is at [facility]. Prior to that he had been living alone. He has a sister that we were able to get a hold of. The patient does have a living will and states that he is a full code. Is noted that the patient is single on his face sheet. Is not known if he ever smoked or used alcohol. Smoking status: Unknown if ever smoked Alcohol intake: never Substance use: never Substance use type: does not use Gender identity (if verbalized by the patient): Male Spiritual care concerns: No Meds Home Medications and Allergies Home Medications Medication Instructions Recorded Confirmed Type budesonide-formoterol [Symbicort] 2 puff INHALATION Q12HRT #1 inh 01/29/20 02/20/20 Rx docusate sodium 100 mg PO Q12HR #30 cap 01/29/20 02/20/20 Rx ipratropium bromide 0.5 mg INHALATION Q6HRT PRN #30 01/29/20 02/20/20 Rx vial lidocaine [Lidoderm] 2 patch TRANSDERMAL DAILY #15 ea 01/29/20 02/20/20 Rx magnesium oxide 400 mg PO QAM #30 tablet 01/29/20 02/20/20 Rx miconazole nitrate [Aloe [place] 1 applic TOPICAL Q12HR #30 g 01/29/20 02/20/20 Rx Antifungal (micon)] pantoprazole [Protonix]
--- NOTE | 2020-02-21 12:55 | P.OP_ITS ---
Procedure Note - Detailed Date of procedure: 02/21/20 Pre-op diagnosis: SEPSIS/PNEUMONIA abscess of the Right buttock area. Post-op diagnosis: other ( Suspected deep subcutaneous hematoma overlying the gluteus gavino on the right (now infected).) Procedure performed: Incision and drainage of hematoma/ abscess of the right buttock area. Description of procedure: The area of the abscess was marked and time-out pe rformed confirming patient and site of required I and D. Following this the area was prepped with alcohol swab then Betadine. The area was draped and local anesthetic infiltrated directly over the area of swelling and abscess formation. there was already have approximately 4 mm round opening draining grayish red purulent material. I was able to probe this with a Q-tip mostly posteriorly and laterally but also in all directions. Therefore local anesthetic was infiltrated some anterior inferiorly and some posterior laterally and I opened it about a length of 6 cm. with the sterile scissors from a suture removal kit. Patient did not complain of any pain during the procedure. There was not much bleeding from the incision. there was significant amount of clot within the cavity so blood loss recorded below mainly takes into account the old clot that was within the cavity. Following this the area was packed with Three on folded pieces of silver alginate rope that was soaked with some of the 2% xylocaine with epinephrine. I try to place these on the periphery of the cavity. Following this I used an a 3 in roll of Kerlix and completely packed this into the space. This did not pack it tightly but it did fill the space and a little bit of this was left at the external opening. Of the 3 pieces of silver alginate only 1 has a small part sticking out so the others will have to be removed at the next dressing change.. The area was then covered with 4x4s , an ABD, and tape. Anesthesia: local ( 2% xylocaine with epinephrine approximately 10 cc) Surgeon: Sulaiman Maradiaga MD Acute Care Registered Nurse: Alejandra [facility]U floor nurse Estimated blood loss (mL): 40 Drains: No Packing: Yes ( Three pieces of silver alginate rope, and 1 unfolded roll of 3 in Kerlix) Pathology: none sent Complications: No immediate complications Condition: stable Disposition: floor ( Procedure was bedside procedure.) Findings: Underlying the area of the skin abnormality at the site of drainage there is a large hematoma cavity which has subsequently become infected. At least 40 cc of old clot was removed using sterile 4x4s after opening the incision.
--- NOTE | 2020-02-21 12:55 | PM.IMPN ---
Progress Note: A&P Assessment and Plan (1) Abscess: Code(s): L02.91 - Cutaneous abscess, unspecified Status: Acute Assessment and Plan: I did order CT of the abdomen I was able to get that with contrast is a were able to get permission for the contrast for the CT. Patient had large amount of blood and pus coming out of a abscess from the right hip. I was able to place the cotton tip and approximately 3 to 4 in which I could have pushed it further but I had a short Contin tip. It appears that the abscesses tunneling. This appears to be an infected hematoma. Patient's white count is 33.5. The patient was started on Invanz per the request of the surgeon. He was also on vancomycin. Blood cultures wound cultures are all pending. I asked that there is the interventional radiologists here today for possible drain placement but there is nobody available today. Will continue to re-dressed that area and keep an eye on his H&H. 02/21/20 12:55 patient is 74-year-old male male known to me as i recently discharged him to [facility] after he was treated for lower extremities cellulits, pneumonia and developed atrial fibrillation upon discharged on 01/29/2020 patient clinically symptoms were stable his heart rate was stable as well as his mental condition, however he was sent to emergency department from detention yesterday with 1 day history fever and large hematoma on his right buttock emergency depart patient had I and D there was large blood and pus expressed, patient started on Ivenz and vancomycin, patient is seen by surgery team and further evaluation recommendation to follow, CT scan of the chest showed bilateral pneumonia patient is being treated with Ivenz and vancomycin, patient is nonverbal all the history is recorded from electronic chart. (2) Pneumonia: Qualifiers: Laterality: bilateral Lung location: unspecified part of lung Pneumonia type: due to unspecified organism Qualified Code(s): J18.9 - Pneumonia, unspecified organism Code(s): J18.9 - Pneumonia, unspecified organism Status: Acute Assessment and Plan: Patient is on Invanz and vancomycin. I held off on any Levaquin. (3) Sepsis: Qualifiers: Sepsis acute organ dysfunction status: unspecified Sepsis type: sepsis due to unspecified organism Qualified Code(s): A41.9 - Sepsis, unspecified organism Code(s): A41.9 - Sepsis, unspecified organism Status: Acute Assessment and Plan: Patient's heart rate was in the 90s down the 80s. His blood pressure has been elevated 157/97. However he does have leukocytosis and he is afebrile. Cultures are pending and he is already on antibiotics. (4) Urinary tract infection, acute: Code(s): N39.0 - Urinary tract infection, site not specified Status: Acute Assessment and Plan: Urine and blood cultures are pending. The patient is on Invanz and vancomycin. (5) Hypertension: Qualifiers: Hypertension type: unspecified Qualified Code(s): I10 - Essential (primary) hypertension Code(s): I10 - Essential (primary) hypertension Status: Chronic Assessment and Plan: His blood pressure is elevated at this point will do p.r.n. hydralazine. (6) Atrial fibrillation: Qualifiers: Atrial fibrillation type: unspecified Qualified Code(s): I48.91 - Unspecified atrial fibrillation Code(s): I48.91 - Unspecified atrial fibrillation Status: Resolved Assessment and Plan: Paroxysmal. I am holding his Xarelto at this time as patient had large amount of blood coming out of his abscess. It looks like maybe he was on sotalol at home. Subjective Date/time seen: 02/21/20 12:55 patient is 74-year-old male male known to me as i recently discharged him to [facility] after he was treated for lower extremities cellulits, pneumonia and developed atrial fibrillation upon discharged on 01/29/2020
--- NOTE | 2020-02-21 14:51 | PM.CNGS ---
Assessment and Plan Assessment and plan (1) Abscess of right buttock: Onset Date: ~01/2020 Code(s): L02.31 - Cutaneous abscess of buttock Status: Acute Assessment and Plan: We are unsure when this started. After the patient's admission he was noted to have some bloody drainage and the small opening was noted on his buttock while in ICU yesterday. CT scan of the pelvis revealed a large 10 x 8 cm area of apparent clot and abscess in the subcutaneous tissues overlying his gluteus gavino on the right. Plan will be for wider opening of this area such that will be able to rinse that out and packet today then consider possible wound VAC for continued care tomorrow. Cultures have been sent off and are pending at this time with multiple organisms seen on Gram stain. (2) Dementia: Onset Date: Unknown Code(s): F03.90 - Unspecified dementia without behavioral disturbance Status: Acute (3) Congestive heart failure: Onset Date: Unknown Code(s): I50.9 - Heart failure, unspecified Status: Chronic (4) Sepsis: Onset Date: ~01/2020 Qualifiers: Sepsis acute organ dysfunction status: unspecified Sepsis type: sepsis due to unspecified organism Qualified Code(s): A41.9 - Sepsis, unspecified organism Code(s): A41.9 - Sepsis, unspecified organism Status: Acute (5) Pneumonia: Onset Date: ~01/2020 Qualifiers: Laterality: bilateral Lung location: unspecified part of lung Pneumonia type: due to unspecified organism Qualified Code(s): J18.9 - Pneumonia, unspecified organism Code(s): J18.9 - Pneumonia, unspecified organism Status: Acute (6) Urinary tract infection, acute: Onset Date: ~02/20/20 Code(s): N39.0 - Urinary tract infection, site not specified Status: Acute Assessment and Plan: Culture pending patient has been started on antibiotics. (7) Hypokalemia: Onset Date: Unknown Code(s): E87.6 - Hypokalemia Status: Acute (8) Atrial fibrillation: Onset Date: Unknown Qualifiers: Atrial fibrillation type: unspecified Qualified Code(s): I48.91 - Unspecified atrial fibrillation Code(s): I48.91 - Unspecified atrial fibrillation Status: Resolved Assessment and Plan: Patient had been on chronic blood thinners however apparently the Xarelto has been stopped as 02/18/2020. (9) Hypertension: Onset Date: Unknown Qualifiers: Hypertension type: unspecified Qualified Code(s): I10 - Essential (primary) hypertension Code(s): I10 - Essential (primary) hypertension Status: Chronic Additional Plan Patient needed a wider incision and drainage which was done today (see operative note). will have the wound nurses see the patient on Saturday. I believe this wound may benefit from a irrigating wound VAC. Will see if we can get his maintenance machinist to qualify him for same and begin this therapy early this week. Agree with continued antibiotics and adjust according to sensitivities once they return from the wound culture. History of Present Illness Consult details Consult date: 02/21/20 Reason for consult: wound care ( Patient has an apparent infected hematoma right buttock area) Requesting physician: Cesar Chavez MD Narrative: Kieran Sanchez is a 74 year old male Who is from [facility]. He has been nonverbal. He answer some questions with a yes and no. The patient came from the emergency room because he had been vomiting and had a fever for 1 day. The patient has been bed ridden. the patient looks like he has abrasions to his right foot and had a large hematoma to his right hip. The right hip hematoma started gushing out pus and blood when he was moved to the ICU bed. The patient had a head CT which shows no acute intracranial abnormality and chronic age-related findings because the patient was nonverbal. The jose antonio
[2020-02-21] MEDS: ERTAPENEM 1 GM/NS 50 ML 1 GM/50 ML BAG IVPB (17:09)
[2020-02-22] VITALS (19 sets, daily range): BP systolic 93–142; BP diastolic 47–72; PULSE 57–73; RESP 14–18; TEMP 35.6–36.4; O2SAT 88–95
[2020-02-22 05:15] LABS: Hematocrit 36.4 % (42.0-52.0); Hemoglobin 11.3 g/dL (14.0-18.0); Mean Corpuscular Hemoglobin 31.6 pg (26-34); Mean Corpuscular Volume 101.7 fl (80-100); Mean Platelet Volume 10.3 fl (7.4-10.4); Platelet Count Result 218 k/mm3 (150-375); Red Blood Count 3.58 M/mm3 (4.6-6.20); Red Cell Distribution Width 15.2 % (11.5-14.5); White Blood Count 15.3 K/mm3 (4.5-10.0)
[2020-02-22 05:32] LABS: Anion Gap 4 mmol/L (8-16); Blood Urea Nitrogen 34 mg/dL (9-20); Calcium 8.3 mg/dL (8.4-10.2); Carbon Dioxide 32 mmol/L (22-30); Chloride 108 mmol/L (98-107); Estimated CRCL calculation 133 ml/min; Estimated Glomerular Filt Rate > 60; Glucose 118 mg/dL (75-110); Potassium 3.5 mmol/L (3.4-5.0); Sodium 144 mmol/L (137-145)
[2020-02-22] MEDS: SOTALOL HCL 40 MG TABLET PO ×2 (08:57→20:50)
[2020-02-22] MEDS: MAGNESIUM OXIDE 400 MG TABLET PO (08:57)
[2020-02-22] MEDS: PANTOPRAZOLE SODIUM IV 40 MG VIAL IV PUSH ×2 (08:57→20:50)
[2020-02-22] MEDS: SERTRALINE HCL 50 MG TABLET PO (08:57)
--- NOTE | 2020-02-22 16:39 | PM.IMPN ---
Progress Note: A&P Assessment and Plan (1) Abscess: Code(s): L02.91 - Cutaneous abscess, unspecified Status: Acute Assessment and Plan: Patient had contrast for the CT. Patient had large amount of blood and pus coming out of a abscess from the right hip. the cotton tip and approximately 3 to 4 in which I could have pushed it further but I had a short Contin tip. It appears that the abscesses tunneling. This appears to be an infected hematoma. Patient's white count is 33.5. The patient was started on Invanz per the request of the surgeon. He was also on vancomycin. Blood cultures wound cultures are all pending. I asked that there is the interventional radiologists here today for possible drain placement but there is nobody available today. Will continue to re-dressed that area and keep an eye on his H&H. 02/22/20 16:39 patient is 74-year-old male male known to me as i recently discharged him to [facility] after he was treated for lower extremities cellulits, pneumonia and developed atrial fibrillation upon discharged on 01/29/2020 patient clinically symptoms were stable his heart rate was stable as well as his mental condition, however he was sent to emergency department from assisted yesterday with 1 day history fever and large hematoma on his right buttock emergency depart patient had I and D there was large blood and pus expressed, patient started on Ivenz and vancomycin, on 02/20 patient was seen by surgery team and exploration of the wound pus was removed and wound was cleaned, recommended wound vac, patient had CT scan of the chest showed bilateral pneumonia patient is being treated with Ivenz and vancomycin, today 02/21 wound culture is growing gram-negative bacilli identification and sensitivities pending, blood culture is growing staph aureus sensitivities pending urine culture is growing Klebsiella pneumonia, will continue Ivenz and vancomycin, will order cardiac echo rule out any vegetation, patient is nonverbal and more somnolent patient does open his eyes when instructed but then goes back to sleep, his vitals are stable he has no fever, he is DNR, I spoke with his sister Cyndy and give her updates she will come to see him today later in the evening, patient was seen by surgery team and further recommendation to follow, (2) Pneumonia: Onset Date: ~01/2020 Qualifiers: Laterality: bilateral Lung location: unspecified part of lung Pneumonia type: due to unspecified organism Qualified Code(s): J18.9 - Pneumonia, unspecified organism Code(s): J18.9 - Pneumonia, unspecified organism Status: Acute Assessment and Plan: Patient is on Invanz and vancomycin. I held off on any Levaquin. (3) Sepsis: Onset Date: ~01/2020 Qualifiers: Sepsis acute organ dysfunction status: unspecified Sepsis type: sepsis due to unspecified organism Qualified Code(s): A41.9 - Sepsis, unspecified organism Code(s): A41.9 - Sepsis, unspecified organism Status: Acute Assessment and Plan: Patient's heart rate was in the 90s down the 80s. His blood pressure has been elevated 157/97. However he does have leukocytosis and he is afebrile. Cultures are pending and he is already on antibiotics. (4) Urinary tract infection, acute: Onset Date: ~02/20/20 Code(s): N39.0 - Urinary tract infection, site not specified Status: Acute Assessment and Plan: Urine and blood cultures are pending. The patient is on Invanz and vancomycin. (5) Hypertension: Onset Date: Unknown Qualifiers: Hypertension type: unspecified Qualified Code(s): I10 - Essential (primary) hypertension Code(s): I10 - Essential (primary) hypertension Status: Chronic Assessment and Plan: His blood pressure is elevated at this point will do p.r.n. hydralazine. (6) Atrial fibrillation: Onset Date: Unknown Qualifiers
--- NOTE | 2020-02-22 16:51 | PM.PNGS ---
Progress Note: A&P Assessment and Plan (1) Abscess of right buttock: Onset Date: ~01/2020 Code(s): L02.31 - Cutaneous abscess of buttock Status: Acute Assessment and Plan: Discussed with wound care nurses. Today when we change the dressing we will apply a wound VAC. Will wait to see what kind drainage and what voume we get out of this. His hemoglobin is down slightly today so we will need to continue to follow this. (2) Dementia: Onset Date: Unknown Code(s): F03.90 - Unspecified dementia without behavioral disturbance Status: Acute Subjective Subjective Date/Time Seen: 02/22/20 16:51 Patient somewhat sleepy when I entered the room. Still sedate and does not answer questions well. Review of Systems Constitutional: Constitutional: Reports no additional constitutional complaints ENT: Reports other (Mucous Membranes moist.) Cardiovascular: Cardiovascular: Denies dyspnea Respiratory: Respiratory: Denies pain on inspiration and Denies dyspnea Musculoskeletal: Musculoskeletal: Reports other (No calf swelling or edema) Integumentary/Breasts: Skin/Breast: Reports system reviewed and no additional complaints, except as docu Exam Const: General: cooperative, no acute distress, alert and awake Orientation/consciousness: patient oriented x3 HENMT: Mouth: Yes moist mucous membranes Neck: Neck: normal visual inspection Chest: Chest palpation & inspection: normal inspection of the chest Resp: Effort & Inspection: normal respiratory effort Auscultation: clear to auscultation bilaterally Cardio: Jugular venous distension: no JVD Rate: regular rate Rhythm: regular rhythm GI: Rectal Exam: deferred Skin: Other: Dressing on the right buttock area intact without significant through drainage. Neuro: General: patient oriented x3 and moves all extremities Speech: normal speech Extrem: General: normal exam except as noted Psych: Speech and movement: Normal speech and movement present Thought content: Yes Normal thought content present Other: Sedate, somewhat demented, does not answer questions well. Objective Data Vital Signs Vital Signs: Vital Signs - 24 hr 02/21/20 18:10 02/21/20 20:00 02/21/20 20:34 Temperature 35.9 C L Pulse Rate 87 66 69 Respiratory Rate 16 Blood Pressure 139/67 Pulse Oximetry 97 02/21/20 22:00 02/22/20 00:00 02/22/20 00:07 Temperature 35.8 C L Pulse Rate 67 68 65 Respiratory Rate 18 Blood Pressure 135/68 Pulse Oximetry 95 95 02/22/20 02:00 02/22/20 04:00 02/22/20 04:43 Temperature 35.6 C L Pulse Rate 67 67 68 Respiratory Rate 16 Blood Pressure 142/67 H Pulse Oximetry 93 02/22/20 06:00 02/22/20 08:00 02/22/20 08:57 Temperature 36.3 C L Pulse Rate 66 72 73 Respiratory Rate 16 Blood Pressure 136/72 Pulse Oximetry 94 02/22/20 10:00 02/22/20 10:16 02/22/20 11:54 Temperature 36.2 C L Pulse Rate 64 63 Respiratory Rate 14 Blood Pressure 93/47 L Pulse Oximetry 92 93 02/22/20 12:00 02/22/20 13:52 02/22/20 16:00 Temperature 36.1 C L Pulse Rate 62 61 60 Respiratory Rate 16 Blood Pressure 112/56 L Pulse Oximetry 93 Intake/Output Intake/Output: Intake & Output 02/19/20 02/20/20 02/21/20 02/22/20 23:59 23:59 23:59 23:59 Intake Total 2350 3500 1500 Output Total 450 1125 450 Balance 1900 2375 1050 Meds/Results Medications: Active Medications Generic Name Dose Route Start Last Admin Trade Name Freq PRN Reason Stop Dose Admin Albuterol 2.5 mg 02/20/20 20:16 Albuterol Sulf Neb 2.5mg/0.5ml INHALATION Q6HRT PRN Shortness Of Breath Budesonide/Formoterol Fumarate 2 puff 02/20/20 20:00 02/21/20 20:15 Symbicort 160-4.5 Mcg (*Sp) Inhaler INHALATION 2 puff Q12HRT BROOK Administration Docusate Sodium 100 mg 02/20/20 21:00 02/22/20 08:56 Colace Capsule PO Not Given Q12HR BROOK Ertapenem 1 gm in 50 mls @ 100 mls/hr 02/20/20
[2020-02-22] MEDS: ERTAPENEM 1 GM/NS 50 ML 1 GM/50 ML BAG IVPB (17:01)
[2020-02-22] MEDS: LACTATED RINGERS 1,000 ML 100 ML IV CONT (18:37)
[2020-02-23] VITALS (19 sets, daily range): BP systolic 110–123; BP diastolic 54–77; PULSE 59–68; RESP 14–18; TEMP 35.7–36.5; O2SAT 90–98
--- NOTE | 2020-02-23 | ECHO_ITS ---
Patient Info Name: Kieran Sanchez Age: 74 years : 1945 Gender: Male Ht: 69 in Wt: 204 lbs BSA: 2.15 m2 HR: 63 bpm BP: 110 / 54 mmHg Heart Rhythm: Sinus Rhythm Technical Quality: Good Exam Date: 02/23/2020 10:59 AM Exam Location: [facility] Pulmonary Patient Status: Inpatient Admit Date: 02/20/2020 Staff Ordering Physician: Tao Yates MD [employer] Supervisor: Juanjose Garcia, RUBENCS, RT Attending Provider: Cesar Chavez MD Exam Type: CA echo doppler color flow Study Info Indications R65.20 - Severe sepsis without septic shock Complete two-dimensional, color flow and Doppler transthoracic echocardiogram is performed. Summary 1. Complete two-dimensional, color flow and Doppler transthoracic echocardiogram is performed. 2. Left ventricular systolic function is normal, estimated at 55-60%. 3. There is mildly increased left ventricular wall thickness. 4. The left ventricular diastolic function is grade I diastolic dysfunction. 5. There is mild aortic valve sclerosis with focal thickening of the noncoronary cusp. No mobile elements clearly identified. 6. There is trace aortic valve regurgitation. 7. There is no mitral valve regurgitation. 8. Unable to estimate PA systolic pressure due to poor spectral resolution of tricuspid regurgitant jet velocity. Left Ventricle Left ventricular chamber dimension is normal. Left ventricular systolic function is normal, estimated at 55-60%. There is mildly increased left ventricular wall thickness. The left ventricular diastolic function is grade I diastolic dysfunction. Right Ventricle Right ventricular chamber dimension is mildly enlarged. Right ventricular systolic function is reduced. Left Atria Left atrial chamber dimension is normal. Right Atria Right atrial chamber dimension is normal. Aortic Valve The aortic valve is trileaflet. There is mild aortic valve sclerosis with focal thickening of the noncoronary cusp. No mobile elements clearly identified. There is trace aortic valve regurgitation. Pulmonic Valve The pulmonic valve is not well visualized. There is trace pulmonic regurgitation. Mitral Valve The mitral valve has thickened leaflets. There is no mitral valve regurgitation. The mitral valve annulus is moderately calcified. Tricuspid Valve The tricuspid valve leaflets are normal. There is mild tricuspid valve regurgitation. Unable to estimate PA systolic pressure due to poor spectral resolution of tricuspid regurgitant jet velocity. Pericardium/Pleural The pericardium appears normal. There is no pericardial effusion. Inferior Vena Cava Normal inferior vena cava with >50% collapse upon inspiration consistent with normal right atrial pressure, 5 mmHg. Aorta The aortic root size at the sinus of Valsalva is normal. Left Ventricular Outflow Tract Name Value Normal LVOT 2D LVOT Diameter 2.0 cm LVOT Doppler LVOT Peak Gradient 4 mmHg LVOT Mean Gradient 2 mmHg LVOT VTI 20 cm LVOT VTI/AV VTI Ratio 0.[address]
[2020-02-23 02:32] LABS: Vancomycin Trough 12.1 ug/mL (10.0-20.0)
[2020-02-23] MEDS: LACTATED RINGERS 1,000 ML 100 ML IV CONT (04:04)
[2020-02-23 04:45] LABS: Hematocrit 35.9 % (42.0-52.0); Hemoglobin 11.1 g/dL (14.0-18.0); Mean Corpuscular HGB Conc 30.9 g/dl (32-36); Mean Corpuscular Volume 103.5 fl (80-100); Mean Platelet Volume 10.5 fl (7.4-10.4); Platelet Count Result 163 k/mm3 (150-375); Red Blood Count 3.47 M/mm3 (4.6-6.20); Red Cell Distribution Width 14.9 % (11.5-14.5); White Blood Count 14.5 K/mm3 (4.5-10.0)
[2020-02-23 05:08] LABS: Anion Gap -1 mmol/L (8-16); Blood Urea Nitrogen 22 mg/dL (9-20); Calcium 7.9 mg/dL (8.4-10.2); Carbon Dioxide 34 mmol/L (22-30); Chloride 106 mmol/L (98-107); Estimated CRCL calculation 110 ml/min; Estimated Glomerular Filt Rate > 60; Glucose 129 mg/dL (75-110); Potassium 3.6 mmol/L (3.4-5.0); Sodium 139 mmol/L (137-145)
[2020-02-23] MEDS: PANTOPRAZOLE SODIUM IV 40 MG VIAL IV PUSH ×2 (09:12→20:00)
[2020-02-23] MEDS: SERTRALINE HCL 50 MG TABLET PO (09:12)
[2020-02-23] MEDS: SOTALOL HCL 40 MG TABLET PO (09:13)
[2020-02-23] MEDS: MAGNESIUM OXIDE 400 MG TABLET PO (09:13)
[2020-02-23] MEDS: DOCUSATE SODIUM LIQ 100 MG/10 ML UDC FEED TUBE ×2 (13:43→20:00)
--- NOTE | 2020-02-23 15:22 | CONS_ITS ---
DATE OF CONSULTATION: 02/23/2020 REASON FOR CONSULTATION: Buttock abscess. HISTORY OF PRESENT ILLNESS: A 74-year-old male who cannot provide any history. He has dementia. He has had multiple hospital admissions this year for various illnesses as detailed. He was readmitted to the hospital about 3 weeks after his prior, this time with drainage from a lesion on the right hip. He also had vomiting and reported fever. He was taken to the operating room the following day, where he had drainage of an infected hematoma from the right buttock. He now has a wound VAC in place. He has been on ertapenem and vancomycin. Consultation requested. No other events. ALLERGIES: PENICILLIN, UNKNOWN REACTION. HE HAS TOLERATED HIS CARBAPENEM. HABITS: No tobacco. No alcohol. PRESENT MEDICATIONS: No immunosuppressants. PAST MEDICAL HISTORY: Previous AF, heart failure, dementia, hypertension. REVIEW OF SYSTEMS: 14-point review attempted, not obtainable from the patient due to dementia. SOCIAL HISTORY: No family at the bedside. He is a skilled nursing resident. Apparently has a sister who is not available to speak with. PHYSICAL EXAMINATION: GENERAL: This is an elderly male who appears much older than his actual age. No respiratory distress. VITAL SIGNS: On the day of admission, had a temperature up to 37.7, has since been afebrile, 61, 16, 123/76. SKIN: Decreased turgor. Warm and dry. EENT: Eyes are sunken. Pupils equal, round, reactive. Conjunctivae are pale. He has dried blood over the palate. Mucous membranes are dry as well elsewhere. NECK: Without meningismus or thyromegaly. LUNGS: On tidal respirations, clear to auscultation. CARDIAC: Regular rate and rhythm. No murmur or gallop. ABDOMEN: Scaphoid, nontender. No masses. No organomegaly. EXTREMITIES: Abrasions. 2+ nonpitting edema at the ankles. MUSCULOSKELETAL: He has a wound VAC in place, right lateral and posterior hip. LABORATORY DATA: From admission, blood cultures 1/2 sets MRSA. His vancomycin OSORIO less than equal to 0.5. Urine with Klebsiella pneumoniae. A wound culture obtained preop also with klebsiella, which was not an ESBL stage producer. White count 14.5, down from 15.3, hemoglobin 11.1, platelets are 163. BUN 22, creatinine 0.5. His CO2 is elevated at 34, glucose 129. Liver function tests earlier normal except for an albumin of 2.6. RADIOLOGY: Pelvic CT, right gluteus abscess suspected, inguinal adenopathy. ASSESSMENT: 1. Right buttock abscess due to infected hematoma, postop day #2 and stable status. 2. Atrial fibrillation, on sotalol, which is a relative contraindication to quinolone use. 3. Dementia. 4. Debility. RECOMMENDATIONS: 1. Change ertapenem over to cefdinir. 2. Continue vancomycin for his MRSA bacteremia, soft tissue source, target trough 15 to 20, pharmacist dosing. 3. Follow up white blood cell count and clinical features over time to help determine length of therapy. Thank you very much for asking me to see him. ANGÉLICA MADSEN M.D. AUTOMOTIVE TI[employer] TESTING SUPERVISOR AUTOMOTIVE TIRE TESTING SUPERVISOR D I MT: Abner
--- NOTE | 2020-02-23 15:25 | PM.IMPN ---
Progress Note: A&P Assessment and Plan (1) Abscess: Code(s): L02.91 - Cutaneous abscess, unspecified Status: Acute Assessment and Plan: Patient had contrast for the CT. Patient had large amount of blood and pus coming out of a abscess from the right hip. the cotton tip and approximately 3 to 4 in which I could have pushed it further but I had a short Contin tip. It appears that the abscesses tunneling. This appears to be an infected hematoma. Patient's white count is 33.5. The patient was started on Invanz per the request of the surgeon. He was also on vancomycin. Blood cultures wound cultures are all pending. I asked that there is the interventional radiologists here today for possible drain placement but there is nobody available today. Will continue to re-dressed that area and keep an eye on his H&H. 02/23/20 15:25 patient is 74-year-old male male known to me as i recently discharged him to [facility] after he was treated for lower extremities cellulits, pneumonia and developed atrial fibrillation upon discharged on 01/29/2020 patient clinically symptoms were stable his heart rate was stable as well as his mental condition, however he was sent to emergency department from half-way yesterday with 1 day history fever and large hematoma on his right buttock emergency depart patient had I and D there was large blood and pus expressed, patient started on Ivenz and vancomycin, on 02/20 patient was seen by surgery team and exploration of the wound pus was removed and wound was cleaned, recommended wound vac, patient had CT scan of the chest showed bilateral pneumonia patient is being treated with Cefdinir and vancomycin, today 02/22 wound and urine culture is growing Klebsiella pneumonia blood culture is growing staph aureus today patient was seen Dr. Gonzalez switch Ivenz to cefdinir and continued vancomycin to cover for MRSA, will order cardiac echo rule out any vegetation, Patient was seen by surgery team om 02/21 and placed wound vac. upon arrival patient was quite nauseated and was vomiting to prevent aspiration patient was placed on NG tube, will start the patient on procalmine for nutrient, patient is more awake will remove the NG tube and have a bedside swallow study and further recommendation to follow patient is nonverbal and more somnolent patient does open his eyes when instructed but then goes back to sleep, his vitals are stable he has no fever, he is DNR, will continue present management and further recommendation to follow (2) Pneumonia: Onset Date: ~01/2020 Qualifiers: Laterality: bilateral Lung location: unspecified part of lung Pneumonia type: due to unspecified organism Qualified Code(s): J18.9 - Pneumonia, unspecified organism Code(s): J18.9 - Pneumonia, unspecified organism Status: Acute Assessment and Plan: Patient is on Invanz and vancomycin. I held off on any Levaquin. (3) Sepsis: Onset Date: ~01/2020 Qualifiers: Sepsis acute organ dysfunction status: unspecified Sepsis type: sepsis due to unspecified organism Qualified Code(s): A41.9 - Sepsis, unspecified organism Code(s): A41.9 - Sepsis, unspecified organism Status: Acute Assessment and Plan: Patient's heart rate was in the 90s down the 80s. His blood pressure has been elevated 157/97. However he does have leukocytosis and he is afebrile. Cultures are pending and he is already on antibiotics. (4) Urinary tract infection, acute: Onset Date: ~02/20/20 Code(s): N39.0 - Urinary tract infection, site not specified Status: Acute Assessment and Plan: Urine and blood cultures are pending. The patient is on Invanz and vancomycin. (5) Hypertension: Onset Date: Unknown Qualifiers: Hypertension type: unspecified Qualified Code(s): I10 - Essential (primary) hypertension Code(s): I10 - Essential (primary) hypert
--- NOTE | 2020-02-23 15:59 | PM.PNGS ---
Progress Note: A&P Assessment and Plan (1) Abscess of right buttock: Onset Date: ~01/2020 Code(s): L02.31 - Cutaneous abscess of buttock Status: Acute Assessment and Plan: Discussed with wound care nurses. There is a wound VAC In place. Will wait to see what kind drainage and what volume we get out of this. His hemoglobin is down slightly today so we will need to continue to follow this. (2) Dementia: Onset Date: Unknown Code(s): F03.90 - Unspecified dementia without behavioral disturbance Status: Acute Additional Plan Patient needed a wider incision and drainage which was done Saturday (see operative note). The wound nurses saw the patient on Saturday and placed wound VAC. I will try to change the dressing with them tomorrow when they do the 1st wound VAC change. Agree with continued antibiotics and adjust according to sensitivities once they return from the wound culture. Wound culture is growing Haemophilus and swab influenza. This is was also groin from his urinary tract. I believe he is on appropriate coverage for same. Agree with consultation with ID in view of the fact that blood 1 blood culture is showing MRSA. Subjective Subjective Date/Time Seen: 02/23/20 14:59 Patient lying in bed sleeping when I entered the room. He opens his eyes to calling his name but does not answer questions. Seems to deny abdominal pain today. Review of Systems Review of Systems: ROS unobtainable: Yes unobtainable due to medical condition, unobtainable due to mental status and other ( see other records by hospitalist.) Exam Const: General: cooperative, no acute distress, well developed, alert and awake Nutritional Appearance: malnourished Orientation/consciousness: patient oriented x3 Limitations: no limitations HENMT: Head: normal to inspection, normocephalic and atraumatic Ears: hearing grossly normal bilaterally General nose exam: Normal external nose present Face and sinus: normal facial exam Mouth: Yes Normal oral and palatal mucosa present, Yes tongue normal and Yes moist mucous membranes Other: NG tube in place Eyes: General: appearance normal, both eyes and all related structures Pupils: Equal, round and reactive pupils present EOM: EOMs intact bilaterally Neck: Neck: normal visual inspection, no lymphadenopathy, trachea midline and supple Lymphatic: no lymphadenopathy noted Chest: Chest palpation & inspection: normal inspection of the chest Resp: Effort & Inspection: normal respiratory effort and able to speak in complete sentences Auscultation: clear to auscultation bilaterally Cardio: Jugular venous distension: no JVD Rate: regular rate Rhythm: regular rhythm Heart sounds: S1 normal heart sound present and S2 normal heart sound present GI: Inspection: normal to inspection Rectal Exam: deferred : General: Yes no CVA tenderness Urinary Catheter: Urinary Catheter: patent and draining, urine cloudy and urine dark Back/Spine/Pelvis: Back: no CVA tenderness and No mass Cervical Spine: cervical ROM normal Skin: General skin exam: normal color and no rashes or lesions noted Lesions: no lesions Rashes: no rashes Trauma: no lacerations or abrasions Wounds: wounds noted ( right buttock area (see below)) Hair: normal Nails: normal Other: Wound VAC dressing on the right buttock area intact without significant through drainage. there appears to be about 150 cc of reddish brown drainage in the wound VAC canister which I believe is the 1st canister on the system placed yesterday late afternoon. Neuro: General: patient oriented x3, moves all extremities, Normal light touch and pain sensation and no focal motor deficits Cranial nerves: Yes Equal, round and reactive pupils present and Yes Normal hearing present Cognition (Neuro): abnormal cognition ( Seems sedate and possibly demented.) Speech: normal speech Sensory Exam: normal sensation Extrem: General: normal t
[2020-02-23] MEDS: AMINO ACIDS 4.25%/D5W/LYTES/CA 2,000 ML 80 ML IV CONT (17:40)
[2020-02-23] MEDS: FAT EMULSIONS IV 20% 250 ML 20.8 ML IVPB (17:43)
[2020-02-23] MEDS: CEFDINIR 300 MG CAPSULE PO (20:00)
[2020-02-23] MEDS: SOTALOL HCL 40 MG TABLET FEED TUBE (20:01)
[2020-02-24] VITALS (15 sets, daily range): BP systolic 121–146; BP diastolic 60–68; PULSE 61–81; RESP 18–22; TEMP 35.7–37; O2SAT 92–98; BMI 29.1
[2020-02-24 06:35] LABS: Hematocrit 32.1 % (42.0-52.0); Mean Corpuscular HGB Conc 31.2 g/dl (32-36); Mean Corpuscular Hemoglobin 32.1 pg (26-34); Mean Corpuscular Volume 102.9 fl (80-100); Platelet Count Result 152 k/mm3 (150-375); Red Blood Count 3.12 M/mm3 (4.6-6.20); Red Cell Distribution Width 14.8 % (11.5-14.5); White Blood Count 14.5 K/mm3 (4.5-10.0)
[2020-02-24 06:42] LABS: Anion Gap 3 mmol/L (8-16); Blood Urea Nitrogen 19 mg/dL (9-20); Calcium 7.7 mg/dL (8.4-10.2); Carbon Dioxide 32 mmol/L (22-30); Chloride 102 mmol/L (98-107); Estimated CRCL calculation 110 ml/min; Estimated Glomerular Filt Rate > 60; Glucose 117 mg/dL (75-110); Potassium 3.2 mmol/L (3.4-5.0); Sodium 137 mmol/L (137-145)
[2020-02-24] MEDS: MAGNESIUM OXIDE 400 MG TABLET FEED TUBE (09:37)
[2020-02-24] MEDS: DOCUSATE SODIUM LIQ 100 MG/10 ML UDC FEED TUBE ×2 (09:37→21:13)
[2020-02-24] MEDS: CEFDINIR 300 MG CAPSULE PO ×2 (09:37→21:13)
[2020-02-24] MEDS: SERTRALINE HCL 50 MG TABLET FEED TUBE (09:38)
[2020-02-24] MEDS: SOTALOL HCL 40 MG TABLET FEED TUBE ×2 (09:38→21:13)
[2020-02-24] MEDS: PANTOPRAZOLE SODIUM IV 40 MG VIAL IV PUSH ×2 (09:38→21:13)
--- NOTE | 2020-02-24 13:23 | WPDINFPN2 ---
Progress Note: A&P Assessment and Plan (1) Abscess of right buttock: Onset Date: ~01/2020 Code(s): L02.31 - Cutaneous abscess of buttock Status: Acute Assessment and Plan: 1. R buttock abscess , Klebsiella, drained 2. MRSA bacteremia with infection, skin source likely , so far 1/2 sets REC Vanc and cefdinir continue. Local wound care. Repeat BCs Subjective Date/time seen: 02/24/20 13:23 Interval history: non verbal, eyes open Exam Narrative: Exam Narrative: afebrile - hypothermic (mild) Const: General: no acute distress Other: appears chronically ill and older than actual age Resp: Effort & Inspection: normal respiratory effort Auscultation: clear to auscultation bilaterally Cardio: Rate: regular rate Rhythm: regular rhythm Heart sounds: no murmurs GI: Inspection: non-distended GI Palp: Yes Soft to palpation and No Tenderness to palpation present (GI) Objective Data Vital Signs Vital Signs: Vital Signs - 24 hr 02/23/20 16:00 02/23/20 16:35 02/23/20 18:00 Temperature 36.3 C L Pulse Rate 60 62 63 Respiratory Rate 14 Blood Pressure 114/59 L Pulse Oximetry 98 02/23/20 19:56 02/23/20 20:00 02/23/20 20:01 Temperature 35.7 C L Pulse Rate 61 62 61 Respiratory Rate 16 Blood Pressure 119/62 Pulse Oximetry 96 02/23/20 21:05 02/23/20 21:50 02/23/20 23:48 Temperature 35.8 C L Pulse Rate 62 61 Respiratory Rate 18 Blood Pressure 119/64 Pulse Oximetry 92 98 02/24/20 00:00 02/24/20 01:44 02/24/20 04:00 Temperature 35.7 C L Pulse Rate 62 63 61 Respiratory Rate 18 Blood Pressure 129/65 Pulse Oximetry 97 02/24/20 05:20 02/24/20 05:21 02/24/20 05:44 Temperature Pulse Rate 65 Respiratory Rate Blood Pressure Pulse Oximetry 96 97 02/24/20 06:44 02/24/20 08:00 02/24/20 08:17 Temperature 36.1 C L Pulse Rate 65 Respiratory Rate 22 H Blood Pressure 121/60 Pulse Oximetry 95 96 92 02/24/20 09:38 Temperature Pulse Rate 67 Respiratory Rate Blood Pressure Pulse Oximetry Intake/Output Intake/Output: Intake & Output 02/21/20 02/22/20 02/23/20 02/24/20 23:59 23:59 23:59 23:59 Intake Total 3550 1550 2400 1522 Output Total 1125 700 750 550 Balance 2425 850 1650 972 Meds/Results Medications: Active Medications Generic Name Dose Route Start Last Admin Trade Name Freq PRN Reason Stop Dose Admin Albuterol 2.5 mg 02/20/20 20:16 Albuterol Sulf Neb 2.5mg/0.5ml INHALATION Q6HRT PRN Shortness Of Breath Budesonide/Formoterol Fumarate 2 puff 02/20/20 20:00 02/24/20 08:16 Symbicort 160-4.5 Mcg (*Sp) Inhaler INHALATION 2 puff Q12HRT BROOK Administration Cefdinir 300 mg 02/23/20 21:00 02/24/20 09:37 Omnicef PO 300 mg Q12HR BROOK Administration Docusate Sodium 100 mg 02/23/20 11:00 02/24/20 09:37 Colace Liquid FEED TUBE 100 mg Q12HR BROOK Administration Vancomycin HCl 1,250 mg in 250 mls @ 250 mls/hr 02/21/20 14:00 02/24/20 02:33 Vancomycin 1,250 Mg/D5w 250 Ml IVPB Infused Q12H BROOK Infusion Amino Acids/Electrolytes/Dextrose 2,000 mls @ 80 mls/hr 02/23/20 15:50 02/24/20 06:43 Clinimix E 4.25%/5% Solution IV CONT 80 mls/hr .Q24H BROOK Infusion Protocol Fat Emulsion Intravenous 250 mls @ 20.833 mls/hr 02/23/20 17:00 02/24/20 05:45 Lipids 20% IVPB Infused Q24H BROOK Infusion Potassium Chloride 500 mls @ 125 mls/hr 02/24/20 10:05 02/24/20 10:42 Kcl 40 Meq/D5w 500 Ml Peripheral IVPB 02/24/20 14:04 125 mls/hr ONCE ONE Administration Ipratropium Excel 0.5 mg 02/20/20 19:59 Atrovent Neb INHALATION Q6HRT PRN Shortness Of Breath Magnesium Oxide 400 mg 02/24/20 09:00 02/24/20 09:37 Mag-Ox FEED TUBE 400 mg QAM BROOK Administration Miconazole Nitrate 1 applic 02/20/20 21:00 02/24/20 10:18 Aloe [place] TOPICAL 1 applic Q12HR BROOK Administration Ondansetron HCl 4 mg 02/20/20 20:14
--- NOTE | 2020-02-24 16:31 | PM.IMPN ---
Progress Note: A&P Assessment and Plan (1) Abscess: Code(s): L02.91 - Cutaneous abscess, unspecified Status: Acute Assessment and Plan: Patient had contrast for the CT. Patient had large amount of blood and pus coming out of a abscess from the right hip. the cotton tip and approximately 3 to 4 in which I could have pushed it further but I had a short Contin tip. It appears that the abscesses tunneling. This appears to be an infected hematoma. Patient's white count is 33.5. The patient was started on Invanz per the request of the surgeon. He was also on vancomycin. Blood cultures wound cultures are all pending. I asked that there is the interventional radiologists here today for possible drain placement but there is nobody available today. Will continue to re-dressed that area and keep an eye on his H&H. 02/24/20 16:31 patient is 74-year-old male male known to me as i recently discharged him to [facility] after he was treated for lower extremities cellulits, pneumonia and developed atrial fibrillation upon discharged on 01/29/2020 patient clinically symptoms were stable his heart rate was stable as well as his mental condition, however he was sent to emergency department from long term yesterday with 1 day history fever and large hematoma on his right buttock emergency depart patient had I and D there was large blood and pus expressed, patient started on Ivenz and vancomycin, on 02/20 patient was seen by surgery team and exploration of the wound pus was removed and wound was cleaned, recommended wound vac, patient had CT scan of the chest showed bilateral pneumonia patient is being treated with Cefdinir and vancomycin, today 02/22 wound and urine culture is growing Klebsiella pneumonia blood culture is growing staph aureus today patient was seen Dr. Gonzalez switch Ivenz to cefdinir and continued vancomycin to cover for MRSA, will order cardiac echo rule out any vegetation, Patient was seen by surgery team om 02/21 and placed wound vac. upon arrival patient was quite nauseated and was vomiting to prevent aspiration patient was placed on NG tube, on 02/22 started the patient on procalmine for nutrient, once patient is more awake will remove the NG tube and have a bedside swallow study and further recommendation to follow 02/23 patient is more somnolent patient does open his eyes when instructed but then goes back to sleep, his vitals are stable he has no fever, patient was seen by Dr. Gonzalez recommended to continue cefdinir and vancomycin and repeat the blood culture, he is DNR, will continue present management and further recommendation to follow (2) Pneumonia: Onset Date: ~01/2020 Qualifiers: Laterality: bilateral Lung location: unspecified part of lung Pneumonia type: due to unspecified organism Qualified Code(s): J18.9 - Pneumonia, unspecified organism Code(s): J18.9 - Pneumonia, unspecified organism Status: Acute Assessment and Plan: Patient is on Invanz and vancomycin. I held off on any Levaquin. (3) Sepsis: Onset Date: ~01/2020 Qualifiers: Sepsis acute organ dysfunction status: unspecified Sepsis type: sepsis due to unspecified organism Qualified Code(s): A41.9 - Sepsis, unspecified organism Code(s): A41.9 - Sepsis, unspecified organism Status: Acute Assessment and Plan: Patient's heart rate was in the 90s down the 80s. His blood pressure has been elevated 157/97. However he does have leukocytosis and he is afebrile. Cultures are pending and he is already on antibiotics. (4) Urinary tract infection, acute: Onset Date: ~02/20/20 Code(s): N39.0 - Urinary tract infection, site not specified Status: Acute Assessment and Plan: Urine and blood cultures are pending. The patient is on Invanz and vancomycin. (5) Hypertension: Onset Date: Unknown Qualifiers: Hypertension type: unspecif
[2020-02-24] MEDS: FAT EMULSIONS IV 20% 250 ML 20.8 ML IVPB (17:51)
[2020-02-24] MEDS: AMINO ACIDS 4.25%/D5W/LYTES/CA 2,000 ML 80 ML IV CONT (17:51)
--- NOTE | 2020-02-24 21:30 | PC.NURSE ---
This patient, Kieran Sanchez, was received from IMU on 02/24/20 at 2130. Personal belongings list checked and signed. Patient/family oriented to unit policies and routines
--- NOTE | 2020-02-24 21:44 | PC.NURSE ---
This patient, Kieran Sanchez, was transferred to [facility] on 02/24/20 at 2130. Personal belongings sent with patient. Belongings list checked and signed with receiving [ ]. Report given to JACEK SPARKS. Appropriate documentation sent with patient.
--- NOTE | 2020-02-24 21:45 | PM.PNGS ---
Progress Note: A&P Assessment and Plan (1) Abscess of right buttock: Onset Date: ~01/2020 Code(s): L02.31 - Cutaneous abscess of buttock Status: Acute Assessment and Plan: Discussed with wound care nurses. There is a wound VAC in place. Will wait to see what kind drainage and what volume we get out of this. His hemoglobin is down slightly today so we will need to continue to follow this. (2) Dementia: Onset Date: Unknown Code(s): F03.90 - Unspecified dementia without behavioral disturbance Status: Acute Additional Plan Patient needed a wider incision and drainage which was done Saturday (see operative note). The wound nurses saw the patient on Saturday and placed wound VAC. The area is much auto cleaner today and is showing signs of begining to granulate. Agree with continued antibiotics and adjust according to sensitivities once they return from the wound culture. Wound culture is growing Haemophilus influenza. This is was also growing from his urinary tract. I believe he is on appropriate coverage for same. Agree with consultation with ID in view of the fact that blood 1 blood culture is showing MRSA. Since pt having stools he could probably have the NG out and see if he would be alert enough on 02/24 to do the swallow test. If not consider Enteroflex feeding tube or PEG so GInutrition could be started. Will check serum pre-albumin in AM to see where he is nutritionally for the last 2 weeks. Subjective Subjective Date/Time Seen: 02/24/20 21:45 Pt seen with the wound care nurses.Pt did wawke up some when we turned him to cleanhim up from an incontinent stool and to change the wound vac.He did not really verbalize much, moaned and purposely reached back when tape was being removed and acted as if it hurt him some and was trying to protect himself. Review of Systems Review of Systems: ROS unobtainable: Yes unobtainable due to medical condition and unobtainable due to mental status Exam Const: General: cooperative, no acute distress and well developed Nutritional Appearance: malnourished Limitations: altered mental status HENMT: Head: normal to inspection, normocephalic and atraumatic Ears: hearing grossly normal bilaterally General nose exam: Normal external nose present Face and sinus: normal facial exam Mouth: Yes Normal oral and palatal mucosa present, Yes tongue normal and Yes moist mucous membranes Other: NG tube in place Eyes: General: appearance normal, both eyes and all related structures Pupils: Equal, round and reactive pupils present EOM: EOMs intact bilaterally Neck: Neck: normal visual inspection, no lymphadenopathy, trachea midline and supple Lymphatic: no lymphadenopathy noted Chest: Chest palpation & inspection: normal inspection of the chest GI: Inspection: normal to inspection Auscultation: normal bowel sounds Rectal Exam: deferred : General: Yes no CVA tenderness Urinary Catheter: Urinary Catheter: patent and draining, urine cloudy and urine dark Back/Spine/Pelvis: Back: no CVA tenderness and No mass Cervical Spine: cervical ROM normal Skin: General skin exam: normal color and no rashes or lesions noted Lesions: no lesions Rashes: no rashes Trauma: no lacerations or abrasions Wounds: wounds noted ( right buttock area (see below)) Hair: normal Nails: normal Other: Wound VAC dressing on the right buttock area intact without significant through drainage. This was removed and changed with the woumd care nurses today There appears to be about 280 cc of reddish brown drainage in the wound VAC canister which I believe is the 1st canister on the system placed Saturday late afternoon. The opening is about 6 cm long and it appear that some good pink to red granulation tissue is developing within the cavity which is still quite large. (see wound care note for measurements). No active bleeding within the cavity. The surrounding skin still looks healthy. Wound v
[2020-02-25] VITALS (10 sets, daily range): BP systolic 119–146; BP diastolic 63–88; PULSE 53–85; RESP 16–20; TEMP 36–36.3; O2SAT 92–98
[2020-02-25 05:57] LABS: Anion Gap 4 mmol/L (8-16); Blood Urea Nitrogen 16 mg/dL (9-20); Calcium 7.6 mg/dL (8.4-10.2); Carbon Dioxide 29 mmol/L (22-30); Chloride 98 mmol/L (98-107); Estimated CRCL calculation 133 ml/min; Estimated Glomerular Filt Rate > 60; Glucose 107 mg/dL (75-110); Potassium 3.4 mmol/L (3.4-5.0); Sodium 131 mmol/L (137-145)
[2020-02-25 05:58] LABS: Hemoglobin 10.9 g/dL (14.0-18.0); Mean Corpuscular Hemoglobin 31.8 pg (26-34); Mean Corpuscular Volume 96.2 fl (80-100); Mean Platelet Volume 10.7 fl (7.4-10.4); Platelet Count Result 156 k/mm3 (150-375); Red Blood Count 3.43 M/mm3 (4.6-6.20); Red Cell Distribution Width 14.6 % (11.5-14.5); White Blood Count 12.3 K/mm3 (4.5-10.0)
[2020-02-25 06:04] LABS: Prealbumin 7.6 mg/dL (17.6-36.0)
[2020-02-25] MEDS: PANTOPRAZOLE SODIUM IV 40 MG VIAL IV PUSH ×2 (09:33→22:15)
[2020-02-25] MEDS: MAGNESIUM OXIDE 400 MG TABLET FEED TUBE (09:33)
[2020-02-25] MEDS: DOCUSATE SODIUM LIQ 100 MG/10 ML UDC FEED TUBE ×2 (09:33→22:15)
[2020-02-25] MEDS: CEFDINIR 300 MG CAPSULE PO (09:34)
[2020-02-25] MEDS: SERTRALINE HCL 50 MG TABLET FEED TUBE (09:34)
[2020-02-25] MEDS: SOTALOL HCL 40 MG TABLET FEED TUBE ×2 (09:34→22:16)
--- NOTE | 2020-02-25 09:51 | PCRCNOTE ---
pt did not receive inhaler/2 attempts/2nd time [employer] and RN bathing
--- NOTE | 2020-02-25 10:55 | PM.PNGS ---
Progress Note: A&P Assessment and Plan (1) Abscess of right buttock: Onset Date: ~01/2020 Code(s): L02.31 - Cutaneous abscess of buttock Status: Acute Assessment and Plan: Discussed with wound care nurses. There is a wound VAC in place. Will wait to see what kind drainage and what volume we get out of this. ( now dark reddish and less purulent then when 1st opened). His hemoglobin is now up slightly today. (2) Dementia: Onset Date: Unknown Code(s): F03.90 - Unspecified dementia without behavioral disturbance Status: Acute Additional Plan Patient needed a wider incision and drainage which was done Saturday (see operative note). The wound nurses saw the patient on Saturday and placed wound VAC. The area was much flue cleaner yesterday and is showing signs of beginning to granulate. Agree with continued antibiotics and adjust according to sensitivities once they return from the wound culture. Wound culture is growing Haemophilus influenza. This is was also growing from his urinary tract. I believe he is on appropriate coverage for same. Agree with consultation with ID in view of the fact that blood 1 blood culture is showing MRSA. Since pt having stools he could probably have the NG out and see if he would be alert enough today to do the swallow test. If not consider Enteroflex feeding tube or PEG so GI nutrition could be started. Theserum pre-albumin is quite low at 7.8 so patient is in need of continuous supplemental nutrition. Subjective Subjective Date/Time Seen: 02/25/20 09:55 patient lying in bed on his left side when I entered the room. NG is still in place but patient states he is not nauseated. Nurse reports that bedside swallow test was done and was inconclusive, therefore the speech pathologist's is recommending a modified barium swallow to check his swallowing mechanism. Patient more alert today and answering questions. Speech is still at times garbled however. At this time he seems to deny abdominal pain to me. When asked if he has pain anywhere he shook his head and said no. Review of Systems Constitutional: Constitutional: Reports no additional constitutional complaints Gastrointestinal: Gastrointestinal: Reports abdominal pain ( Patient seemed alert enough to deny this today.) Neurologic: Reports as per HPI and Reports Abnormal speech present ( Somewhat garbled speech.) Exam Const: General: cooperative, no acute distress and well developed Nutritional Appearance: malnourished Limitations: altered mental status HENMT: Head: normal to inspection, normocephalic and atraumatic Ears: hearing grossly normal bilaterally General nose exam: Normal external nose present Face and sinus: normal facial exam Mouth: Yes Normal oral and palatal mucosa present, Yes tongue normal and Yes moist mucous membranes Other: NG tube in place Neck: Neck: normal visual inspection, no lymphadenopathy, trachea midline and supple Lymphatic: no lymphadenopathy noted GI: Inspection: normal to inspection Auscultation: normal bowel sounds Rectal Exam: deferred : General: Yes no CVA tenderness Urinary Catheter: Urinary Catheter: patent and draining, urine cloudy and urine dark Skin: General skin exam: normal color and no rashes or lesions noted Lesions: no lesions Rashes: no rashes Trauma: no lacerations or abrasions Wounds: wounds noted ( right buttock area (see below)) Hair: normal Nails: normal Other: Wound VAC dressing on the right buttock area intact without significant through drainage. There appears to be about 480 cc of reddish brown drainage in the wound VAC canister which I believe is the 1st canister on the system placed Saturday late afternoon. When seen yesterday the opening is about 6 cm long and it appears that some good pink to red granulation tissue is developing within the cavity which is still quite large. (see wound care note for measurements). No active bleeding wit
[2020-02-25] MEDS: MAGNESIUM HYDROXIDE SUSP 30 ML UDC FEED TUBE (11:42)
--- NOTE | 2020-02-25 11:57 | PCSTNOTE ---
Recommend pt. remain NPO. Please refer to the Modified Barium Swallow Evaluation in the EMR for complete findings.
--- NOTE | 2020-02-25 13:49 | PCNFU ---
Nutrition Follow-Up Complete: Inadequate oral intake related to possible dysphagia as evidenced by NPO status. Goal: Patient to meet estimated nutritional needs. Limited progress towards goal. We will continue current goal. Pt current nutrition is NPO. Nutrition recommendation: TF-Jevity 1.5 @ 60 ml/hr Last recorded weight is 87.4 kg. Bowel Motility: +BM 02/24 Labs Reviewed:Na 131,Hct 33.0,Hgb 10.9 Meds Noted: Vancomycin,Mag-Ox,Protonix,Zoloft, Colace, Clinimix E 4.25/5 and 250ml of 20% Lipid Emulsion. Additional Notes: Patient had MBS today, speech is recommending NPO. Current nutrition: PPN providing 1153 kcals and 82 gms protein. NGT is placed. Spoke with nursing today regarding enteral nutrition. Recommends for Tube feedings: Jevity 1.5 at 30 ml/hr advance by 10 ml q 4 hours to goal rate of 60 ml/hr, which will provide 1980 kcals/84 gms protein/1003 ml water. Monitoring: Follow up every Saturday/Saturday.
--- NOTE | 2020-02-25 14:08 | WPDINFPN2 ---
Progress Note: A&P Assessment and Plan (1) Abscess of right buttock: Onset Date: ~01/2020 Code(s): L02.31 - Cutaneous abscess of buttock Status: Acute Assessment and Plan: 1. R buttock abscess , Klebsiella, drained 2. MRSA bacteremia with infection, skin source likely , so far 1/2 sets 3. PCN allergy REC Vanc # 5 / 14 and cefdinir #3 / 7, continue. Local wound care. Repeat BCs ng 1 day. TMP-SMX DS x 2 weeks after IV Vanc is done. Subjective Date/time seen: 02/25/20 14:08 Interval history: non verbal Exam Narrative: Exam Narrative: afebrile Const: General: no acute distress Resp: Effort & Inspection: normal respiratory effort Auscultation: clear to auscultation bilaterally Cardio: Rate: regular rate Rhythm: regular rhythm Heart sounds: no murmurs GI: Inspection: non-distended GI Palp: Yes Soft to palpation and No Tenderness to palpation present (GI) Skin: General skin exam: normal color and no rashes or lesions noted Other: vac in place R hip Objective Data Vital Signs Vital Signs: Vital Signs - 24 hr 02/24/20 16:00 02/24/20 20:00 02/25/20 00:00 Temperature 36.2 C L 37.0 C 36.0 C L Pulse Rate 67 67 71 Respiratory Rate 18 20 18 Blood Pressure 146/66 H 132/68 119/63 Pulse Oximetry 98 93 95 02/25/20 04:00 02/25/20 09:34 02/25/20 10:05 Temperature 36.2 C L 36.2 C L Pulse Rate 66 82 53 L Respiratory Rate 16 20 Blood Pressure 122/64 136/88 Pulse Oximetry 94 94 Intake/Output Intake/Output: Intake & Output 02/22/20 02/23/20 02/24/20 02/25/20 23:59 23:59 23:59 23:59 Intake Total 1550 2400 3164 390 Output Total 299 883 9452 600 Balance 850 1650 1264 -210 Meds/Results Medications: Active Medications Generic Name Dose Route Start Last Admin Trade Name Freq PRN Reason Stop Dose Admin Albuterol 2.5 mg 02/20/20 20:16 Albuterol Sulf Neb 2.5mg/0.5ml INHALATION Q6HRT PRN Shortness Of Breath Budesonide/Formoterol Fumarate 2 puff 02/20/20 20:00 02/25/20 09:51 Symbicort 160-4.5 Mcg (*Sp) Inhaler INHALATION Not Given Q12HRT [facility] Cefdinir 300 mg 02/23/20 21:00 02/25/20 09:34 Omnicef PO 300 mg Q12HR BROOK Administration Docusate Sodium 100 mg 02/23/20 11:00 02/25/20 09:33 Colace Liquid FEED TUBE 100 mg Q12HR BROOK Administration Vancomycin HCl 1,250 mg in 250 mls @ 250 mls/hr 02/21/20 14:00 02/25/20 07:01 Vancomycin 1,250 Mg/D5w 250 Ml IVPB Infused Q12H BROOK Infusion Amino Acids/Electrolytes/Dextrose 2,000 mls @ 80 mls/hr 02/23/20 15:50 02/24/20 17:51 Clinimix E 4.25%/5% Solution IV CONT 80 mls/hr .Q24H BROOK Administration Protocol Fat Emulsion Intravenous 250 mls @ 20.833 mls/hr 02/23/20 17:00 02/25/20 05:51 Lipids 20% IVPB Infused Q24H BROOK Infusion Ipratropium [place] 0.5 mg 02/20/20 19:59 Atrovent Neb INHALATION Q6HRT PRN Shortness Of Breath Magnesium Oxide 400 mg 02/24/20 09:00 02/25/20 09:33 Mag-Ox FEED TUBE 400 mg QAM BROOK Administration Miconazole Nitrate 1 applic 02/20/20 21:00 02/25/20 09:34 Aloe [place] TOPICAL 1 applic Q12HR BROOK Administration Ondansetron HCl 4 mg 02/20/20 20:14 02/20/20 20:16 Zofran Inj IV PUSH 4 mg Q4H PRN Administration Nausea And Vomiting Pantoprazole Sodium 20 mg 02/20/20 21:00 Protonix PO HS BROOK Pantoprazole Sodium 40 mg 02/20/20 21:00 02/25/20 09:33 Protonix Iv IV PUSH 40 mg Q12HR BROOK Administration Polyethylene Glycol 17 gm 02/23/20 10:09 Miralax FEED TUBE QAM PRN Constipation Sertraline HCl 50 mg 02/24/20 09:00 02/25/20 09:34 Zoloft FEED TUBE 50 mg DAILY BROOK Administration Sotalol HCl 40 mg 02/23/20 21:00 02/25/20 09:34 Betapace FEED TUBE 40 mg Q12HR BROOK Administration Radiology Results: ITS Impressions Head CT 02/20/20 11:22 IMPRESSION: 1. No acute intracranial abnormality. 2: Chronic age-related findings.
--- NOTE | 2020-02-25 16:00 | PC.NURSE ---
Per Care coordination, it is recommended to contact the patients sister to discuss the new feeding tube placement as the last time the patient was hospitalized they were attempting to place the patient on hospice. Informed Dr. Yates of this information and discussed that this nurse would contact the sister to ask for approval of the feeding tube placement. Contacted Cyndy Evans at [phone] and discussed how the patient was doing and the need for a new feeding tube placement. Per Cyndy she wishes for us to do everything in our power to help him and make him better. Cyndy consented to the patient having a nasoduodenal tube placed and feedings started at this time. Called and informed Dr. Maradiaga and Dr. Yates that the sister Cyndy consented to the tube placement and that the order was placed for the nasoduodenal tube to be placed at this time which will be placed in radiology and the nasogastric tube will be removed at this time.
--- NOTE | 2020-02-25 16:52 | PM.IMPN ---
Progress Note: A&P Assessment and Plan (1) Abscess: Code(s): L02.91 - Cutaneous abscess, unspecified Status: Acute Assessment and Plan: Patient had contrast for the CT. Patient had large amount of blood and pus coming out of a abscess from the right hip. the cotton tip and approximately 3 to 4 in which I could have pushed it further but I had a short Contin tip. It appears that the abscesses tunneling. This appears to be an infected hematoma. Patient's white count is 33.5. The patient was started on Invanz per the request of the surgeon. He was also on vancomycin. Blood cultures wound cultures are all pending. I asked that there is the interventional radiologists here today for possible drain placement but there is nobody available today. Will continue to re-dressed that area and keep an eye on his H&H. 02/25/20 16:52 patient is 74-year-old male male known to me as i recently discharged him to [facility] after he was treated for lower extremities cellulits, pneumonia and developed atrial fibrillation upon discharged on 01/29/2020 patient clinically symptoms were stable his heart rate was stable as well as his mental condition, however he was sent to emergency department from [facility] yesterday with 1 day history fever and large hematoma on his right buttock emergency depart patient had I and D there was large blood and pus expressed, patient started on Ivenz and vancomycin, on 02/20 patient was seen by surgery team and exploration of the wound pus was removed and wound was cleaned, recommended wound vac, patient had CT scan of the chest showed bilateral pneumonia patient is being treated with Cefdinir and vancomycin, today 02/22 wound and urine culture is growing Klebsiella pneumonia blood culture is growing staph aureus today patient was seen Dr. Gonzalez switch Ivenz to cefdinir and continued vancomycin to cover for MRSA, will order cardiac echo rule out any vegetation, Patient was seen by surgery team om 02/21 and placed wound vac. upon arrival patient was quite nauseated and was vomiting to prevent aspiration patient was placed on NG tube, on 02/22 started the patient on procalmine for nutrient, once patient is more awake will remove the NG tube and have a bedside swallow study and further recommendation to follow,today 02/24 patient is little more awake it was seen by speech therapy is was taken to radiology for modified swallow study and patient failed,and speech pathologist recommended NPO, patient is seen by Dr. Maradiaga recommended nasoduodenal tube and it was placed by IR, patient is seen by dietitian and resume tube feeding will continue to monitor, patient was seen by Dr. Gonzalez recommended to continue vancomycin 10/07 and switched cefdinir to Omnicef and repeat the blood culture day 1 is still no growth, will continue present management and further recommendation to follow (2) Pneumonia: Onset Date: ~01/2020 Qualifiers: Laterality: bilateral Lung location: unspecified part of lung Pneumonia type: due to unspecified organism Qualified Code(s): J18.9 - Pneumonia, unspecified organism Code(s): J18.9 - Pneumonia, unspecified organism Status: Acute Assessment and Plan: Patient is on Invanz and vancomycin. I held off on any Levaquin. (3) Sepsis: Onset Date: ~01/2020 Qualifiers: Sepsis acute organ dysfunction status: unspecified Sepsis type: sepsis due to unspecified organism Qualified Code(s): A41.9 - Sepsis, unspecified organism Code(s): A41.9 - Sepsis, unspecified organism Status: Acute Assessment and Plan: Patient's heart rate was in the 90s down the 80s. His blood pressure has been elevated 157/97. However he does have leukocytosis and he is afebrile. Cultures are pending and he is already on antibiotics. (4) Urinary tract infection, acute: Onset Date: ~02/20/20 Code(s): N39.0 - Urinary tract infection, s
--- NOTE | 2020-02-25 18:10 | PC.NURSE ---
Called to pharmacy in regards to missing the patients PPN Amino Acids and Fat Emulsions.
[2020-02-25] MEDS: AMINO ACIDS 4.25%/D5W/LYTES/CA 2,000 ML 80 ML IV CONT (18:37)
[2020-02-25] MEDS: FAT EMULSIONS IV 20% 250 ML 20.8 ML IVPB (18:39)
--- NOTE | 2020-02-25 18:55 | PC.NURSE ---
Called Dr. Yates to inform him that both this nurse and the charge nurse looked through the medical record and could not find any orders from the grounds maintenance worker in regards to the patients new feeding tube regiment. Per Dr. Yates okay to start the patient on Jevity 1.2 at 10cc/hr with a flush at 100mL/4hrs. At this time Dr. Yates wishes to continue to the patient on PPN and Fat emulsions at this time and steadily increase the feeding tubes starting tomorrow after the grounds maintenance worker makes official recommendations.
[2020-02-25] MEDS: CEFDINIR 300 MG CAPSULE FEED TUBE (22:15)
[2020-02-25] MEDS: ONDANSETRON INJ 4 MG/2 ML VIAL IV PUSH (22:31)
--- NOTE | 2020-02-25 22:44 | PC.NURSE ---
pt had large dark yellow emesis 5-10 minutes following administration of cefdinir, docusate, sotolol via dobhoff. Elisa flores was notified and ordered to hold tube feeding until tomorrow. Pt did not have tube feeding initiated yet at time of event.
[2020-02-26] VITALS (11 sets, daily range): BP systolic 110–141; BP diastolic 54–69; PULSE 66–87; RESP 14–20; TEMP 35.9–36.9; O2SAT 92–97
[2020-02-26 06:08] LABS: Hematocrit 33.2 % (42.0-52.0); Hemoglobin 10.8 g/dL (14.0-18.0); Mean Corpuscular HGB Conc 32.5 g/dl (32-36); Mean Corpuscular Hemoglobin 31.8 pg (26-34); Mean Corpuscular Volume 97.6 fl (80-100); Mean Platelet Volume 11.1 fl (7.4-10.4); Platelet Count Result 160 k/mm3 (150-375); Red Cell Distribution Width 14.8 % (11.5-14.5); White Blood Count 13.5 K/mm3 (4.5-10.0)
[2020-02-26 06:16] LABS: Anion Gap 7 mmol/L (8-16); Blood Urea Nitrogen 16 mg/dL (9-20); Calcium 7.3 mg/dL (8.4-10.2); Carbon Dioxide 25 mmol/L (22-30); Chloride 95 mmol/L (98-107); Estimated CRCL calculation 133 ml/min; Estimated Glomerular Filt Rate > 60; Glucose 113 mg/dL (75-110); Potassium 3.8 mmol/L (3.4-5.0); Sodium 127 mmol/L (137-145)
--- NOTE | 2020-02-26 07:45 | PM.PNGS ---
Progress Note: A&P Assessment and Plan (1) Abscess of right buttock: Onset Date: ~01/2020 Code(s): L02.31 - Cutaneous abscess of buttock Status: Acute Assessment and Plan: Discussed with wound care nurses. There is a wound VAC in place. Will wait to see what kind drainage and what volume we get out of this. ( now dark reddish and less purulent then when 1st opened). His hemoglobin is now up slightly today. (2) Dementia: Onset Date: Unknown Code(s): F03.90 - Unspecified dementia without behavioral disturbance Status: Acute Additional Plan Patient needed a wider incision and drainage which was done last Saturday (see operative note). The wound nurses saw the patient on Saturday and placed wound VAC. The area was much frame cleaner todayday and is showing signs of beginning to granulate. Agree with continued antibiotics and adjust according to sensitivities once they return from the wound culture. Wound culture is growing Haemophilus influenza. This is was also growing from his urinary tract. I believe he is on appropriate coverage for same. Agree with consultation with ID in view of the fact that blood 1 blood culture is showing MRSA. and to new more recent blood cultures are pending at this time period nurse reports the patient apparently had 1 emesis after using the nasal duodenal tube to give some meds last evening so tube feedings were held overnight but will be started at a slow rate this morning for a trial of tube feedings. As these are being turned up with suggest another 24 hours use of the Clinimix peripheral a period also his sodium is low so using normal saline instead of water for flush on the tube feedings or giving him a slow IV dose of normal saline once the Clinimix is turned off may be reasonable. Subjective Subjective Date/Time Seen: 02/26/20 07:45 Patient awake lying in bed when we arrived. I met with the wound care nurses and we changed his wound VAC today on his right posterior hip region. Patient much more alert, opens his eyes to his name , and denies any pain. Did show some signs of pain and tried to reach back when we removed the tape and sponge packing for his wound VAC set up. Nasal duodenal tube is in place however after using it for some meds late last evening apparently the patient threw up once last evening. Therefore it was not used for tube feeding overnight. Nurse now has orders to begin trial of tube feeding in a slow manner. Review of Systems Review of Systems: ROS unobtainable: Yes unobtainable due to medical condition and unobtainable due to mental status Constitutional: Constitutional: Reports no additional constitutional complaints Gastrointestinal: Gastrointestinal: Reports loose stools Comments: Patient denies abdominal pain today. Exam Const: General: cooperative, no acute distress and well developed Nutritional Appearance: malnourished Limitations: altered mental status HENMT: Head: normal to inspection, normocephalic and atraumatic Ears: hearing grossly normal bilaterally General nose exam: Normal external nose present Face and sinus: normal facial exam Mouth: Yes Normal oral and palatal mucosa present, Yes tongue normal and Yes moist mucous membranes Other: Nasal-duodenal tube in place. Neck: Neck: normal visual inspection, no lymphadenopathy, trachea midline and supple Lymphatic: no lymphadenopathy noted GI: Inspection: normal to inspection GI Palp: No Tenderness to palpation present (GI) Auscultation: normal bowel sounds Rectal Exam: deferred : General: Yes no CVA tenderness Urinary Catheter: Urinary Catheter: patent and draining, urine cloudy and urine dark Back/Spine/Pelvis: Back: no CVA tenderness and No mass Cervical Spine: cervical ROM normal Skin: General skin exam: normal color and no rashes or lesions noted Lesions: no lesions Rashes: no rashes Trauma: no lacerations or abrasions Wounds: wounds noted ( righ
[2020-02-26] MEDS: SOTALOL HCL 40 MG TABLET FEED TUBE ×2 (10:46→21:24)
[2020-02-26] MEDS: MAGNESIUM OXIDE 400 MG TABLET FEED TUBE (10:46)
[2020-02-26] MEDS: PANTOPRAZOLE SODIUM IV 40 MG VIAL IV PUSH ×2 (10:46→21:25)
[2020-02-26] MEDS: DOCUSATE SODIUM LIQ 100 MG/10 ML UDC FEED TUBE ×2 (10:46→21:25)
[2020-02-26] MEDS: SERTRALINE HCL 50 MG TABLET FEED TUBE (10:46)
[2020-02-26] MEDS: CEFDINIR 300 MG CAPSULE FEED TUBE ×2 (10:46→21:25)
--- NOTE | 2020-02-26 12:16 | PCNFU ---
Nutrition Follow-Up Complete: Inadequate oral intake related to possible dysphagia as evidenced by NPO status. Goal: Patient to meet estimated nutritional needs. Progressing towards goal. Pt current nutrition is Jevity 1.2 at 20 ml/hr. Nutrition recommendation: TF goal rate: Jevity 1.2 at 70 ml/hr Last recorded weight is 88.4 kg. 89.5 kg on admit. Bowel Motility:+BM reported 02/24. Labs Reviewed: Na 127,BUN 0.4, Glu 113 Meds Noted: Clinimax E 4.25/5 at 80 ml/hr with 250 ml of 20% Lipid Emulsion, Mag-Ox,Colace, Vancomycin. Additional Notes: Spoke with nursing today regarding patient tube feedings. Last night tube feeding were put on hold due to vomiting. Tube feedings have been restarted at 20 ml/hr of Jevity 1.2. PPN continues at this time at 80 ml/hr providing 1153 kcals and 82 gms protein. Plans for tube feedings to be advanced as tolerated to goal rate of 70 ml/hr which will provide 1848 kcals/85 gms protein/1242 ml water and d/c PPN. Monitoring: Follow up every Saturday/Saturday.
[2020-02-26 13:43] LABS: Vancomycin Trough 10.8 ug/mL (10.0-20.0)
--- NOTE | 2020-02-26 13:51 | PM.IMPN ---
Progress Note: A&P Assessment and Plan (1) Abscess: Code(s): L02.91 - Cutaneous abscess, unspecified Status: Acute Assessment and Plan: Patient had contrast for the CT. Patient had large amount of blood and pus coming out of a abscess from the right hip. the cotton tip and approximately 3 to 4 in which I could have pushed it further but I had a short Contin tip. It appears that the abscesses tunneling. This appears to be an infected hematoma. Patient's white count is 33.5. The patient was started on Invanz per the request of the surgeon. He was also on vancomycin. Blood cultures wound cultures are all pending. I asked that there is the interventional radiologists here today for possible drain placement but there is nobody available today. Will continue to re-dressed that area and keep an eye on his H&H. 02/26/20 13:51 patient is 74-year-old male male known to me as i recently discharged him to [facility] after he was treated for lower extremities cellulits, pneumonia and developed atrial fibrillation upon discharged on 01/29/2020 patient clinically symptoms were stable his heart rate was stable as well as his mental condition, however he was sent to emergency department from half-way yesterday with 1 day history fever and large hematoma on his right buttock emergency depart patient had I and D there was large blood and pus expressed, patient started on Ivenz and vancomycin, on 02/20 patient was seen by surgery team and exploration of the wound pus was removed and wound was cleaned, recommended wound vac, patient had CT scan of the chest showed bilateral pneumonia patient is being treated with Cefdinir and vancomycin, today 02/22 wound and urine culture is growing Klebsiella pneumonia blood culture is growing staph aureus today patient was seen Dr. Gonzalez switch Ivenz to cefdinir and continued vancomycin to cover for MRSA, will order cardiac echo rule out any vegetation, Patient was seen by surgery team om 02/21 and placed wound vac. upon arrival patient was quite nauseated and was vomiting to prevent aspiration patient was placed on NG tube, on 02/22 started the patient on procalmine for nutrient, once patient is more awake will remove the NG tube and have a bedside swallow study and further recommendation to follow, on 02/24 patient was little more awake he was seen by speech therapy iwas taken to radiology for modified swallow study and patient failed,and speech pathologist recommended NPO, patient was seen by Dr. Maradiaga recommended nasoduodenal tube and it was placed by IR, patient was started on slow tube feeding however he had an vomiting episode and tube was stop. patient was also seen by Dr. Gonzalez recommended to continue vancomycin 11/07 and switched cefdinir to Omnicef today 02/25 repeat the blood culture day 2 still no growth, this morning give feedings started a low-dose 25 cc/hour will continue to monitor and it was as tolerated, patient also seen by Dr. Maradiaga and wound vac was changed, today patient is more alert and opens his eye when called his name, will continue present management and further recommendation to follow (2) Pneumonia: Onset Date: ~01/2020 Qualifiers: Laterality: bilateral Lung location: unspecified part of lung Pneumonia type: due to unspecified organism Qualified Code(s): J18.9 - Pneumonia, unspecified organism Code(s): J18.9 - Pneumonia, unspecified organism Status: Acute Assessment and Plan: Patient is on Invanz and vancomycin. I held off on any Levaquin. (3) Sepsis: Onset Date: ~01/2020 Qualifiers: Sepsis acute organ dysfunction status: unspecified Sepsis type: sepsis due to unspecified organism Qualified Code(s): A41.9 - Sepsis, unspecified organism Code(s): A41.9 - Sepsis, unspecified organism Status: Acute Assessment and Plan: Patient's heart rate was in the 90s down the 80s. His blood press
--- NOTE | 2020-02-26 15:10 | WPDINFPN2 ---
Progress Note: A&P Assessment and Plan (1) Abscess of right buttock: Onset Date: ~01/2020 Code(s): L02.31 - Cutaneous abscess of buttock Status: Acute Assessment and Plan: 1. R buttock abscess , Klebsiella, drained. POD # 5. Vac in place 2. MRSA bacteremia with infection, skin source likely , 1/2 sets 3. PCN allergy REC Vanc # 6 / 14 and cefdinir #4 / 7, continue. Local wound care. Repeat BCs ngsf. TMP-SMX DS x 2 weeks after IV Vanc is done. Subjective Date/time seen: 02/26/20 15:10 Interval history: mumbles a little, otherwise non verbal and does not follow simple requests Exam Narrative: Exam Narrative: afebrile Const: General: no acute distress Resp: Effort & Inspection: normal respiratory effort Auscultation: clear to auscultation bilaterally Cardio: Rate: regular rate Rhythm: regular rhythm Heart sounds: no gallops and no murmurs GI: Inspection: non-distended GI Palp: Yes Soft to palpation and No Tenderness to palpation present (GI) Urinary Catheter: Urinary Catheter: patent and draining Skin: General skin exam: normal color and no rashes or lesions noted Objective Data Vital Signs Vital Signs: Vital Signs - 24 hr 02/25/20 18:25 02/25/20 20:40 02/25/20 20:43 Temperature 36.3 C L Pulse Rate 69 71 Respiratory Rate 18 16 Blood Pressure 146/79 H Pulse Oximetry 95 92 02/25/20 22:00 02/25/20 22:16 02/26/20 01:04 Temperature 36.0 C L Pulse Rate 72 85 66 Respiratory Rate 16 Blood Pressure 137/67 Pulse Oximetry 98 92 02/26/20 01:53 02/26/20 05:43 02/26/20 09:00 Temperature 35.9 C L 36.3 C L 36.9 C Pulse Rate 66 71 66 Respiratory Rate 20 20 15 Blood Pressure 113/54 L 131/54 L 141/69 H Pulse Oximetry 92 95 96 02/26/20 10:46 02/26/20 10:53 Temperature Pulse Rate 87 Respiratory Rate Blood Pressure Pulse Oximetry 92 Intake/Output Intake/Output: Intake & Output 02/23/20 02/24/20 02/25/20 02/26/20 23:59 23:59 23:59 23:59 Intake Total 2400 3164 3140 1456 Output Total 750 1900 1400 950 Balance 1650 1264 1740 506 Meds/Results Medications: Active Medications Generic Name Dose Route Start Last Admin Trade Name Freq PRN Reason Stop Dose Admin Albuterol 2.5 mg 02/20/20 20:16 Albuterol Sulf Neb 2.5mg/0.5ml INHALATION Q6HRT PRN Shortness Of Breath Budesonide/Formoterol Fumarate 2 puff 02/20/20 20:00 02/26/20 10:51 Symbicort 160-4.5 Mcg (*Sp) Inhaler INHALATION 2 puff Q12HRT BROOK Administration Cefdinir 300 mg 02/25/20 21:00 02/26/20 10:46 Omnicef FEED TUBE 300 mg Q12HR BROOK Administration Docusate Sodium 100 mg 02/23/20 11:00 02/26/20 10:46 Colace Liquid FEED TUBE 100 mg Q12HR BROOK Administration Vancomycin HCl 1,250 mg in 250 mls @ 250 mls/hr 02/21/20 14:00 02/26/20 14:59 Vancomycin 1,250 Mg/D5w 250 Ml IVPB 250 mls/hr Q12H BROOK Administration Amino Acids/Electrolytes/Dextrose 2,000 mls @ 80 mls/hr 02/23/20 15:50 02/26/20 06:45 Clinimix E 4.25%/5% Solution IV CONT 80 mls/hr .Q24H BROOK Infusion Protocol Fat Emulsion Intravenous 250 mls @ 20.833 mls/hr 02/23/20 17:00 02/26/20 06:45 Lipids 20% IVPB Infused Q24H BROOK Infusion Ipratropium [place] 0.5 mg 02/20/20 19:59 Atrovent Neb INHALATION Q6HRT PRN Shortness Of Breath Magnesium Oxide 400 mg 02/24/20 09:00 02/26/20 10:46 Mag-Ox FEED TUBE 400 mg QAM BROOK Administration Miconazole Nitrate 1 applic 02/20/20 21:00 02/26/20 10:47 Aloe Saxon TOPICAL 1 applic Q12HR BROOK Administration Ondansetron HCl 4 mg 02/20/20 20:14 02/25/20 22:31 Zofran Inj IV PUSH 4 mg Q4H PRN Administration Nausea And Vomiting Pantoprazole Sodium 20 mg 02/20/20 21:00 Protonix PO HS BROOK Pantoprazole Sodium 40 mg 02/20/20 21:00 02/26/20 10:46 Protonix Iv IV PUSH 40 mg Q12HR BROOK Administration Polyethylene Glycol 17 gm 02/23/20 10:09 Miralax FEED
[2020-02-26] MEDS: AMINO ACIDS 4.25%/D5W/LYTES/CA 2,000 ML 80 ML IV CONT (16:59)
[2020-02-26] MEDS: FAT EMULSIONS IV 20% 250 ML 20 ML IVPB (16:59)
[2020-02-27] VITALS (9 sets, daily range): BP systolic 114–129; BP diastolic 58–71; PULSE 70–100; RESP 16–22; TEMP 36.1–36.6; O2SAT 93–98
[2020-02-27 06:01] LABS: Hematocrit 35.8 % (42.0-52.0); Hemoglobin 11.7 g/dL (14.0-18.0); Mean Corpuscular HGB Conc 32.7 g/dl (32-36); Mean Corpuscular Hemoglobin 32.1 pg (26-34); Mean Corpuscular Volume 98.4 fl (80-100); Platelet Count Result 161 k/mm3 (150-375); Red Blood Count 3.64 M/mm3 (4.6-6.20); Red Cell Distribution Width 14.6 % (11.5-14.5)
[2020-02-27 06:13] LABS: Anion Gap 8 mmol/L (8-16); Blood Urea Nitrogen 19 mg/dL (9-20); Calcium 7.8 mg/dL (8.4-10.2); Carbon Dioxide 26 mmol/L (22-30); Chloride 95 mmol/L (98-107); Estimated CRCL calculation 110 ml/min; Estimated Glomerular Filt Rate > 60; Glucose 118 mg/dL (75-110); Potassium 3.7 mmol/L (3.4-5.0); Sodium 129 mmol/L (137-145)
[2020-02-27] MEDS: CEFDINIR 300 MG CAPSULE FEED TUBE ×2 (10:03→20:40)
[2020-02-27] MEDS: SOTALOL HCL 40 MG TABLET FEED TUBE ×2 (10:03→20:39)
[2020-02-27] MEDS: DOCUSATE SODIUM LIQ 100 MG/10 ML UDC FEED TUBE (10:04)
[2020-02-27] MEDS: MAGNESIUM OXIDE 400 MG TABLET FEED TUBE (10:04)
[2020-02-27] MEDS: SERTRALINE HCL 50 MG TABLET FEED TUBE (10:04)
--- NOTE | 2020-02-27 12:10 | PM.IMPN ---
Progress Note: A&P Assessment and Plan (1) Abscess: Code(s): L02.91 - Cutaneous abscess, unspecified Status: Acute Assessment and Plan: Patient had contrast for the CT. Patient had large amount of blood and pus coming out of a abscess from the right hip. the cotton tip and approximately 3 to 4 in which I could have pushed it further but I had a short Contin tip. It appears that the abscesses tunneling. This appears to be an infected hematoma. Patient's white count is 33.5. The patient was started on Invanz per the request of the surgeon. He was also on vancomycin. Blood cultures wound cultures are all pending. I asked that there is the interventional radiologists here today for possible drain placement but there is nobody available today. Will continue to re-dressed that area and keep an eye on his H&H. 02/27/20 12:10 patient is 74-year-old male male known to me as i recently discharged him to [facility] after he was treated for lower extremities cellulits, pneumonia and developed atrial fibrillation upon discharged on 01/29/2020 patient clinically symptoms were stable his heart rate was stable as well as his mental condition, however he was sent to emergency department from halfway yesterday with 1 day history fever and large hematoma on his right buttock emergency depart patient had I and D there was large blood and pus expressed, patient started on Ivenz and vancomycin, on 02/20 patient was seen by surgery team and exploration of the wound pus was removed and wound was cleaned, recommended wound vac, patient had CT scan of the chest showed bilateral pneumonia patient is being treated with Cefdinir and vancomycin, today 02/22 wound and urine culture is growing Klebsiella pneumonia blood culture is growing staph aureus today patient was seen Dr. Gonzalez switch Ivenz to cefdinir and continued vancomycin to cover for MRSA, will order cardiac echo rule out any vegetation, Patient was seen by surgery team om 02/21 and placed wound vac. upon arrival patient was quite nauseated and was vomiting to prevent aspiration patient was placed on NG tube, on 02/22 started the patient on procalmine for nutrient, once patient is more awake will remove the NG tube and have a bedside swallow study and further recommendation to follow, on 02/24 patient was little more awake he was seen by speech therapy iwas taken to radiology for modified swallow study and patient failed,and speech pathologist recommended NPO, patient was seen by Dr. Maradiaga recommended nasoduodenal tube and it was placed by IR, patient was started on slow tube feeding however he had an vomiting episode and tube was stop. patient was also seen by Dr. Gonzalez recommended to continue vancomycin 12/07 and switched cefdinir to Omnicef, on the morning of 02/25 feedings was started a low-dose 25 cc/hour continued to monitor and patient also was seen by Dr. Maradiaga and wound vac was changed, today 02/26 patient is more alert and opens his eye when called his name, feeding rate is now at 70cc/hr and he is able to tolerate without any symptoms, will stop procalamine, will have PT/OT work with the patient, will continue present management and further recommendation to follow (2) Pneumonia: Onset Date: ~01/2020 Qualifiers: Laterality: bilateral Lung location: unspecified part of lung Pneumonia type: due to unspecified organism Qualified Code(s): J18.9 - Pneumonia, unspecified organism Code(s): J18.9 - Pneumonia, unspecified organism Status: Acute Assessment and Plan: Patient is on Invanz and vancomycin. I held off on any Levaquin. (3) Sepsis: Onset Date: ~01/2020 Qualifiers: Sepsis acute organ dysfunction status: unspecified Sepsis type: sepsis due to unspecified organism Qualified Code(s): A41.9 - Sepsis, unspecified organism Code(s): A41.9 - Sepsis, unspecified organism Status: Acute Assessment
[2020-02-27] MEDS: PANTOPRAZOLE SODIUM IV 40 MG VIAL IV PUSH ×2 (14:05→20:40)
[2020-02-28] VITALS (8 sets, daily range): BP systolic 104–136; BP diastolic 58–66; PULSE 78–91; RESP 16–22; TEMP 35.9–36.6; O2SAT 92–96
[2020-02-28 05:24] LABS: Hematocrit 31.9 % (42.0-52.0); Hemoglobin 10.6 g/dL (14.0-18.0); Mean Corpuscular HGB Conc 33.2 g/dl (32-36); Mean Corpuscular Hemoglobin 31.7 pg (26-34); Mean Corpuscular Volume 95.5 fl (80-100); Platelet Count Result 173 k/mm3 (150-375); Red Blood Count 3.34 M/mm3 (4.6-6.20); Red Cell Distribution Width 14.9 % (11.5-14.5); White Blood Count 11.3 K/mm3 (4.5-10.0)
[2020-02-28 05:38] LABS: Anion Gap 5 mmol/L (8-16); Blood Urea Nitrogen 15 mg/dL (9-20); Calcium 7.5 mg/dL (8.4-10.2); Carbon Dioxide 26 mmol/L (22-30); Chloride 95 mmol/L (98-107); Estimated CRCL calculation 133 ml/min; Estimated Glomerular Filt Rate > 60; Glucose 121 mg/dL (75-110); Potassium 4.1 mmol/L (3.4-5.0); Sodium 126 mmol/L (137-145)
--- NOTE | 2020-02-28 07:45 | PC.NURSE ---
Came onto morning shift to the patient not having the right nare nasoduodenal tube in place and the Jevity 1.2 running onto the patients bed at this time. Call was placed to Dr. Yates in regards to the patients tube and tube feedings. Per Dr. Yates put in a new order for a Dobhoff to be placed under radiology at this time. Radiology called and stated that they do not have enough staff to place the the Dobhoff today. Per Dr. Yates okay to keep the feeding tube out at this time and restart the patient back on PPN and lipids until the feeding tube can be placed tomorrow. Contacted Dr. Yates in regards to the patients medications at this time because they are all currently scheduled to be given through the feeding tube. Per Dr. Yates okay to hold all the medications that are to be given via the feeding tube at this time but continue to monitor the heart rate in the event if the patient needs IV Lopressor.
[2020-02-28 09:13] LABS: Basophils Absolute Auto 0.1 K/mm3 (0.0-0.1); Basophils Percent Auto 0.5 % (0.2-1.2); Eosinophils Absolute Auto 0.5 K/mm3 (0-0.3); Hematocrit 32.1 % (42.0-52.0); Hemoglobin 10.8 g/dL (14.0-18.0); Immature Granulocyte Percent A 2.7 % (0-0.5); Lymphocytes Absolute Auto 1.44 K/mm3 (0.9-3.2); Lymphocytes Percent Auto 12.8 % (18.3-44.2); Mean Corpuscular HGB Conc 33.6 g/dl (32-36); Mean Corpuscular Volume 95.3 fl (80-100); Mean Platelet Volume 10.6 fl (7.4-10.4); Monocytes Absolute Auto 1.6 K/mm3 (0.1-0.6); Monocytes Percent Auto 13.9 % (2.6-8.5); Neutrophils Absolute Auto 7.5 K/mm3 (1.3-6.7); Neutrophils Percent Auto 66.1 % (45.5-73.1); Nucleated Red Blood Cells Perc 0.3 % (0.0-0.2); Platelet Count Result 169 k/mm3 (150-375); Red Blood Count 3.37 M/mm3 (4.6-6.20); Red Cell Distribution Width 14.9 % (11.5-14.5); White Blood Count 11.3 K/mm3 (4.5-10.0)
[2020-02-28 09:25] LABS: Partial Thromboplastin Time 44.8 SECONDS (22.3-36.8)
[2020-02-28 09:34] LABS: Alanine Aminotransferase 15 U/L (4-50); Albumin Level 2.3 g/dL (3.5-5.1); Alkaline Phosphatase 153 U/L (38-126); Anion Gap 4 mmol/L (8-16); Aspartate Amino Transferase 31 U/L (17-59); Bilirubin,Total 0.5 mg/dL (0.2-1.3); Blood Urea Nitrogen 15 mg/dL (9-20); Calcium 7.7 mg/dL (8.4-10.2); Carbon Dioxide 28 mmol/L (22-30); Chloride 95 mmol/L (98-107); Estimated CRCL calculation 170 ml/min; Estimated Glomerular Filt Rate > 60; Glucose 109 mg/dL (75-110); Potassium 4.1 mmol/L (3.4-5.0); Sodium 127 mmol/L (137-145)
[2020-02-28 09:41] LABS: Transferrin 138 mg/dL (206-381)
[2020-02-28] MEDS: FAT EMULSIONS IV 20% 250 ML 20.8 ML IVPB (10:18)
[2020-02-28] MEDS: AMINO ACIDS 4.25%/D5W/LYTES/CA 2,000 ML 80 ML IV CONT (10:18)
[2020-02-28] MEDS: PANTOPRAZOLE SODIUM IV 40 MG VIAL IV PUSH ×2 (10:19→20:01)
--- NOTE | 2020-02-28 11:27 | PM.IMPN ---
Progress Note: A&P Assessment and Plan (1) Abscess: Code(s): L02.91 - Cutaneous abscess, unspecified Status: Acute Assessment and Plan: Patient had contrast for the CT. Patient had large amount of blood and pus coming out of a abscess from the right hip. the cotton tip and approximately 3 to 4 in which I could have pushed it further but I had a short Contin tip. It appears that the abscesses tunneling. This appears to be an infected hematoma. Patient's white count is 33.5. The patient was started on Invanz per the request of the surgeon. He was also on vancomycin. Blood cultures wound cultures are all pending. I asked that there is the interventional radiologists here today for possible drain placement but there is nobody available today. Will continue to re-dressed that area and keep an eye on his H&H. 02/27/20 12:10 02/28/20 11:27 patient is 74-year-old male male known to me as i recently discharged him to [facility] after he was treated for lower extremities cellulits, pneumonia and developed atrial fibrillation upon discharged on 01/29/2020 patient clinically symptoms were stable his heart rate was stable as well as his mental condition, however he was sent to emergency department from longterm yesterday with 1 day history fever and large hematoma on his right buttock emergency depart patient had I and D there was large blood and pus expressed, patient started on Ivenz and vancomycin, on 02/20 patient was seen by surgery team and exploration of the wound pus was removed and wound was cleaned, recommended wound vac, patient had CT scan of the chest showed bilateral pneumonia patient is being treated with Cefdinir and vancomycin, today 02/22 wound and urine culture is growing Klebsiella pneumonia blood culture is growing staph aureus today patient was seen Dr. Gonzalez switch Ivenz to cefdinir and continued vancomycin to cover for MRSA, will order cardiac echo rule out any vegetation, Patient was seen by surgery team om 02/21 and placed wound vac. upon arrival patient was quite nauseated and was vomiting to prevent aspiration patient was placed on NG tube, on 02/22 started the patient on procalmine for nutrient, once patient is more awake will remove the NG tube and have a bedside swallow study and further recommendation to follow, on 02/24 patient was little more awake he was seen by speech therapy iwas taken to radiology for modified swallow study and patient failed,and speech pathologist recommended NPO, patient was seen by Dr. Maradiaga recommended nasoduodenal tube and it was placed by IR, patient was started on slow tube feeding however he had an vomiting episode and tube was stop. patient was also seen by Dr. Gonzalez recommended to continue vancomycin 01/07 and switched cefdinir to Omnicef, on the morning of 02/25 feedings was started a low-dose 25 cc/hour continued to monitor and patient also was seen by Dr. Maradiaga and wound vac was changed, on 02/26 feeding rate was at 70cc/hr and he was able to tolerate without any symptoms, stopped procalamine, Today on 02/27 accidently patient NG tube was pulled out, and unable to reinsert the tube until tomorrow by IR, will resume procalamine, patient is clinically stable, patient is able to received his sototal, will closely monitor and if needed will give lopressor 2.5 to 5mg IV PRN, will continue to monitor and replace the NG tube tomorrow and resume his feeding tube and medications. will continue PT/OT. (2) Pneumonia: Onset Date: ~01/2020 Qualifiers: Laterality: bilateral Lung location: unspecified part of lung Pneumonia type: due to unspecified organism Qualified Code(s): J18.9 - Pneumonia, unspecified organism Code(s): J18.9 - Pneumonia, unspecified organism Status: Acute Assessment and Plan: Patient is on Invanz and vancomycin. I held off on any Levaquin. (3) Sepsis: Onset Date: ~01/2020 Qualifiers:
[2020-02-28 18:43] LABS: Glucose Point of Care 116 (65-105)
[2020-02-29] VITALS (9 sets, daily range): BP systolic 103–123; BP diastolic 53–64; PULSE 65–85; RESP 12–20; TEMP 36.1–36.6; O2SAT 92–97
[2020-02-29 02:08] LABS: Glucose Point of Care 96 (65-105)
[2020-02-29 05:31] LABS: Basophils Absolute Auto 0.1 K/mm3 (0.0-0.1); Basophils Percent Auto 0.5 % (0.2-1.2); Eosinophils Absolute Auto 0.3 K/mm3 (0-0.3); Eosinophils Percent Auto 3.3 % (0-4.4); Hematocrit 29.8 % (42.0-52.0); Hemoglobin 9.8 g/dL (14.0-18.0); Immature Granulocyte Absolute 0.43 K/mm3 (0.00-0.031); Immature Granulocyte Percent A 4.7 % (0-0.5); Lymphocytes Absolute Auto 1.17 K/mm3 (0.9-3.2); Lymphocytes Percent Auto 12.7 % (18.3-44.2); Mean Corpuscular HGB Conc 32.9 g/dl (32-36); Mean Corpuscular Volume 94.3 fl (80-100); Mean Platelet Volume 10.5 fl (7.4-10.4); Monocytes Absolute Auto 1.4 K/mm3 (0.1-0.6); Monocytes Percent Auto 15.4 % (2.6-8.5); Neutrophils Absolute Auto 5.8 K/mm3 (1.3-6.7); Neutrophils Percent Auto 63.4 % (45.5-73.1); Nucleated Red Blood Cells Absolute Auto 0.1 K/mm3 (0.0-0.012); Nucleated Red Blood Cells Perc 0.5 % (0.0-0.2); Platelet Count Result 144 k/mm3 (150-375); Red Blood Count 3.16 M/mm3 (4.6-6.20); Red Cell Distribution Width 15.1 % (11.5-14.5); White Blood Count 9.2 K/mm3 (4.5-10.0)
[2020-02-29 05:45] LABS: INR 1.1; Prothrombin Time 13.6 Seconds (11.1-14.7)
[2020-02-29 05:53] LABS: Alanine Aminotransferase 12 U/L (4-50); Albumin Level 2.3 g/dL (3.5-5.1); Alkaline Phosphatase 109 U/L (38-126); Anion Gap 4 mmol/L (8-16); Aspartate Amino Transferase 22 U/L (17-59); Bilirubin,Total 0.4 mg/dL (0.2-1.3); Blood Urea Nitrogen 15 mg/dL (9-20); Calcium 7.9 mg/dL (8.4-10.2); Carbon Dioxide 28 mmol/L (22-30); Chloride 99 mmol/L (98-107); Estimated CRCL calculation 133 ml/min; Estimated Glomerular Filt Rate > 60; Glucose 117 mg/dL (75-110); Magnesium 2.1 mg/dL (1.6-2.3); Phosphorus 3.4 mg/dL (2.5-4.5); Potassium 3.8 mmol/L (3.4-5.0); Sodium 131 mmol/L (137-145)
[2020-02-29 06:00] LABS: Transferrin 133 mg/dL (206-381)
[2020-02-29 06:07] LABS: Glucose Point of Care 124 (65-105)
[2020-02-29] MEDS: FAT EMULSIONS IV 20% 250 ML 20.8 ML IVPB (08:00)
[2020-02-29] MEDS: PANTOPRAZOLE SODIUM IV 40 MG VIAL IV PUSH ×2 (08:00→20:45)
[2020-02-29 09:30] LABS: Triglycerides 171 mg/dL (<150)
[2020-02-29] MEDS: AMINO ACIDS 4.25%/D5W/LYTES/CA 2,000 ML 80 ML IV CONT (10:51)
--- NOTE | 2020-02-29 11:08 | PM.PNGS ---
Progress Note: A&P Assessment and Plan (1) Abscess of right buttock: Onset Date: ~01/2020 Code(s): L02.31 - Cutaneous abscess of buttock Status: Acute Assessment and Plan: Discussed with wound care nurses. There is a wound VAC in place. Will wait to see what kind drainage and what volume we get out of this. ( now dark reddish and less purulent then when 1st opened). His hemoglobin is down slightly ove the week end. (2) Dementia: Onset Date: Unknown Code(s): F03.90 - Unspecified dementia without behavioral disturbance Status: Acute Additional Plan Patient needed a wider incision and drainage which was done last Saturday (see operative note). The wound nurses saw the patient on Saturday and placed wound VAC. The area was much tank cleaner todayday and is showing signs of beginning to granulate. Agree with continued antibiotics and adjust according to sensitivities once they return from the wound culture. Wound culture is growing Haemophilus influenza. This is was also growing from his urinary tract. I believe he is on appropriate coverage for same. Agree with consultation with ID in view of the fact that blood 1 blood culture is showing MRSA. and to new more recent blood cultures are pending at this time period Discussed his situation with the hospitalist . I sure after period nasal duodenal tube being replaced and we will continue to work on improving his nutrition so that he can heal. Appreciate ID input and help. Subjective Subjective Date/Time Seen: 02/29/20 8:08 Patient is sleeping when I entered the room. Nurse reports that he had an uneventful night. Apparently yesterday however he did pull out his nasal duodenal tube. Plans are being made to have Radiology replace this so that we can again start tube feedings. Patient's alertness is still somewhat questionable and his swallowing has not been approved for any diet. Review of Systems Review of Systems: ROS unobtainable: Yes unobtainable due to medical condition and unobtainable due to mental status Exam Const: General: cooperative, no acute distress and well developed Nutritional Appearance: malnourished Limitations: altered mental status HENMT: Head: normal to inspection, normocephalic and atraumatic Ears: hearing grossly normal bilaterally General nose exam: Normal external nose present Face and sinus: normal facial exam Mouth: Yes Normal oral and palatal mucosa present, Yes tongue normal and Yes moist mucous membranes Neck: Neck: normal visual inspection, no lymphadenopathy, trachea midline and supple Lymphatic: no lymphadenopathy noted Chest: Chest palpation & inspection: normal inspection of the chest GI: Inspection: normal to inspection Auscultation: normal bowel sounds Rectal Exam: deferred : General: Yes no CVA tenderness Urinary Catheter: Urinary Catheter: patent and draining and urine clear Back/Spine/Pelvis: Back: no CVA tenderness and No mass Cervical Spine: cervical ROM normal Skin: General skin exam: normal color and no rashes or lesions noted Lesions: no lesions Rashes: no rashes Trauma: no lacerations or abrasions Wounds: wounds noted ( right buttock area (see below)) Hair: normal Nails: normal Other: Wound VAC dressing on the right buttock area intact without significant through drainage. There appears to be less cloudy reddish brown drainage in the wound VAC set up which was the nd canister used and it appears to have about 300 cc or so total drainage from the wound since Saturday. It is both my opinion and Whit from wound care feels that the cavity is shrinking and nicely. There was less sponge able to be placed into the wound today then Saturday. Patient will have wound VAC change with wound care nurses later today. Will re-examine again on 03/02/2020. Neuro: General: Normal light touch and pain sensation Cranial nerves: Yes Equal, round and reactive pupils present Cogni
--- NOTE | 2020-02-29 12:19 | PM.IMPN ---
Progress Note: A&P Assessment and Plan (1) Abscess: Code(s): L02.91 - Cutaneous abscess, unspecified Status: Acute Assessment and Plan: Patient had contrast for the CT. Patient had large amount of blood and pus coming out of a abscess from the right hip. the cotton tip and approximately 3 to 4 in which I could have pushed it further but I had a short Contin tip. It appears that the abscesses tunneling. This appears to be an infected hematoma. Patient's white count is 33.5. The patient was started on Invanz per the request of the surgeon. He was also on vancomycin. Blood cultures wound cultures are all pending. I asked that there is the interventional radiologists here today for possible drain placement but there is nobody available today. Will continue to re-dressed that area and keep an eye on his H&H. 02/27/20 12:10 02/29/20 12:19 patient is 74-year-old male male known to me as i recently discharged him to [facility] after he was treated for lower extremities cellulits, pneumonia and developed atrial fibrillation upon discharged on 01/29/2020 patient clinically symptoms were stable his heart rate was stable as well as his mental condition, however he was sent to emergency department from assisted yesterday with 1 day history fever and large hematoma on his right buttock emergency depart patient had I and D there was large blood and pus expressed, patient started on Ivenz and vancomycin, on 02/20 patient was seen by surgery team and exploration of the wound pus was removed and wound was cleaned, recommended wound vac, patient had CT scan of the chest showed bilateral pneumonia patient is being treated with Cefdinir and vancomycin, today 02/22 wound and urine culture is growing Klebsiella pneumonia blood culture is growing staph aureus today patient was seen Dr. Gonzalez switch Ivenz to cefdinir and continued vancomycin to cover for MRSA, will order cardiac echo rule out any vegetation, Patient was seen by surgery team om 02/21 and placed wound vac. upon arrival patient was quite nauseated and was vomiting to prevent aspiration patient was placed on NG tube, on 02/22 started the patient on procalmine for nutrient, once patient is more awake will remove the NG tube and have a bedside swallow study and further recommendation to follow, on 02/24 patient was little more awake he was seen by speech therapy iwas taken to radiology for modified swallow study and patient failed,and speech pathologist recommended NPO, patient was seen by Dr. Maradiaga recommended nasoduodenal tube and it was placed by IR, patient was started on slow tube feeding however he had an vomiting episode and tube was stop. patient was also seen by Dr. Gonzalez recommended to continue vancomycin 01/07 and switched cefdinir to Omnicef, on the morning of 02/25 feedings was started a low-dose 25 cc/hour continued to monitor and patient also was seen by Dr. Maradiaga and wound vac was changed, on 02/26 feeding rate was at 70cc/hr and he was able to tolerate without any symptoms, stopped procalamine, on 02/27 accidently patient NG tube was pulled out, and unable to reinsert the tube becuse IR was off, resumed procalamine, Today 02/28 patient remained clinically stable and heart rate was controlled, today patient will have NG tube reinserted and will resume patient's feeding and low-dose of 25 cc per hour and advanced as tolerated to 75 cc per hour, today's patient on 02/07 for his vancomycin and will complete the course cefdinir 11/30, patient still remains quite somnolent patient is working with PT OT without significant improvement, if there is no significant improvement after patient completes his vancomycin may consider comfort care or hospice care (2) Pneumonia: Onset Date: ~01/2020 Qualifiers: Laterality: bilateral Lung location: unspecified part of lung Pneumonia type: due to unspecified organism Qualified Code(s): J18.9 - Pneumonia, unspecified
--- NOTE | 2020-02-29 12:44 | WPDINFPN2 ---
Subjective Date/time seen: 02/29/20 12:44 Interval history: unavailable to be seen, in Xray Objective Data Vital Signs Vital Signs: Vital Signs - 24 hr 02/28/20 13:30 02/28/20 16:00 02/28/20 20:22 Temperature 36.4 C L 35.9 C L Pulse Rate 79 88 91 Respiratory Rate 22 H 16 20 Blood Pressure 128/58 L 136/65 Pulse Oximetry 96 96 92 02/28/20 21:50 02/29/20 02:00 02/29/20 05:37 Temperature 36.3 C L 36.1 C L 36.3 C L Pulse Rate 89 83 81 Respiratory Rate 20 20 16 Blood Pressure 114/61 123/60 116/64 Pulse Oximetry 96 97 95 02/29/20 08:00 02/29/20 08:35 Temperature 36.1 C L Pulse Rate 67 Respiratory Rate 18 20 Blood Pressure 103/53 L Pulse Oximetry 96 94 Intake/Output Intake/Output: Intake & Output 02/26/20 02/27/20 02/28/20 02/29/20 23:59 23:59 23:59 23:59 Intake Total 3046 1250 2868 2250 Output Total 1000 1900 1600 1750 Balance 2046 -650 1268 500 Meds/Results Medications: Active Medications Generic Name Dose Route Start Last Admin Trade Name Freq PRN Reason Stop Dose Admin Albuterol 2.5 mg 02/20/20 20:16 Albuterol Sulf Neb 2.5mg/0.5ml INHALATION Q6HRT PRN Shortness Of Breath Budesonide/Formoterol Fumarate 2 puff 02/20/20 20:00 02/29/20 08:36 Symbicort 160-4.5 Mcg (*Sp) Inhaler INHALATION 2 puff Q12HRT BROOK Administration Cefdinir 300 mg 02/25/20 21:00 02/28/20 19:22 Omnicef FEED TUBE Not Given Q12HR BROOK Docusate Sodium 100 mg 02/27/20 20:38 Colace Liquid FEED TUBE PRN PRN Constipation Vancomycin HCl 1,250 mg in 250 mls @ 250 mls/hr 02/21/20 14:00 02/29/20 03:02 Vancomycin 1,250 Mg/D5w 250 Ml IVPB Infused Q12H BROOK Infusion Fat Emulsion Intravenous 250 mls @ 20.833 mls/hr 02/28/20 10:00 02/29/20 08:00 Lipids 20% IVPB 20.8 mls/hr DAILY BROOK Administration Dextrose 1,000 mls @ 50 mls/hr 02/28/20 08:45 Dextrose 10% IV CONT .Q20H PRN if PN is interrupted Amino Acids/Electrolytes/Dextrose 2,000 mls @ 80 mls/hr 02/28/20 10:00 02/29/20 10:51 Clinimix E 4.25%/5% Solution IV CONT 80 mls/hr .Q24H BROOK Administration Protocol Ipratropium [place] 0.5 mg 02/20/20 19:59 Atrovent Neb INHALATION Q6HRT PRN Shortness Of Breath Magnesium Oxide 400 mg 02/24/20 09:00 02/28/20 10:19 Mag-Ox FEED TUBE Not Given QAM BROOK Miconazole Nitrate 1 applic 02/20/20 21:00 02/29/20 08:06 Aloe [place] TOPICAL 1 applic Q12HR BROOK Administration Ondansetron HCl 4 mg 02/20/20 20:14 02/25/20 22:31 Zofran Inj IV PUSH 4 mg Q4H PRN Administration Nausea And Vomiting Pantoprazole Sodium 20 mg 02/20/20 21:00 Protonix PO HS BROOK Pantoprazole Sodium 40 mg 02/20/20 21:00 02/29/20 08:00 Protonix Iv IV PUSH 40 mg Q12HR BROOK Administration Polyethylene Glycol 17 gm 02/23/20 10:09 Miralax FEED TUBE QAM PRN Constipation Sertraline HCl 50 mg 02/24/20 09:00 02/28/20 10:19 Zoloft FEED TUBE Not Given DAILY BROOK Sotalol HCl 40 mg 02/23/20 21:00 02/28/20 19:22 Betapace FEED TUBE Not Given Q12HR BROOK Radiology Results: ITS Impressions Head CT 02/20/20 11:22 IMPRESSION: 1. No acute intracranial abnormality. 2: Chronic age-related findings. Chest CT 02/20/20 11:25 IMPRESSION: 1. Bilateral lower lobe airspace consolidation, consistent with pneumonia. 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 Pelvis CT 02/20/20 17:35 IMPRESSION: 1. Findings consistent with abscess and possibly infected hematoma involving the right gluteus gavino muscle and right buttock soft tissues. 2. Mild right inguinal lymphadenopathy, likely reactive. Abdomen X-Ray 02/20/20 21:26 IMPRESSION: 1. Nasogastric tube in the stomach. Head/Neck Ultrasound 02/21/20 17:30 IMPRESSION: 1. No suspicious mass identified. Modified Barium Swallow 02/25/20 11:33 IMPRESS
[2020-02-29 13:14] LABS: Glucose Point of Care 118 (65-105)
[2020-02-29] MEDS: CEFDINIR 300 MG CAPSULE FEED TUBE ×2 (13:14→20:45)
[2020-02-29] MEDS: SOTALOL HCL 40 MG TABLET FEED TUBE ×2 (13:14→20:45)
[2020-02-29 17:57] LABS: Glucose Point of Care 132 (65-105)
[2020-03-01] VITALS (9 sets, daily range): BP systolic 97–121; BP diastolic 45–61; PULSE 72–79; RESP 14–20; TEMP 36.1–36.6; O2SAT 73–97
[2020-03-01 00:47] LABS: Glucose Point of Care 117 (65-105)
[2020-03-01 05:54] LABS: Hematocrit 29.3 % (42.0-52.0); Hemoglobin 9.5 g/dL (14.0-18.0); Immature Platelet Fraction Pct 4.5 % (0.9-11.2); Mean Corpuscular HGB Conc 32.4 g/dl (32-36); Mean Corpuscular Hemoglobin 31.1 pg (26-34); Mean Corpuscular Volume 96.1 fl (80-100); Mean Platelet Volume 10.5 fl (7.4-10.4); Platelet Count Result 131 k/mm3 (150-375); Red Blood Count 3.05 M/mm3 (4.6-6.20); Red Cell Distribution Width 15.2 % (11.5-14.5); White Blood Count 8.5 K/mm3 (4.5-10.0)
[2020-03-01 06:01] LABS: Anion Gap 3 mmol/L (8-16); Blood Urea Nitrogen 19 mg/dL (9-20); Calcium 7.8 mg/dL (8.4-10.2); Carbon Dioxide 29 mmol/L (22-30); Chloride 101 mmol/L (98-107); Estimated CRCL calculation 133 ml/min; Estimated Glomerular Filt Rate > 60; Glucose 121 mg/dL (75-110); Phosphorus 3.2 mg/dL (2.5-4.5); Potassium 3.7 mmol/L (3.4-5.0); Sodium 133 mmol/L (137-145)
[2020-03-01] MEDS: SOTALOL HCL 40 MG TABLET FEED TUBE ×2 (08:09→21:03)
[2020-03-01] MEDS: CEFDINIR 300 MG CAPSULE FEED TUBE (08:09)
[2020-03-01] MEDS: PANTOPRAZOLE SODIUM IV 40 MG VIAL IV PUSH ×2 (08:10→21:03)
[2020-03-01] MEDS: ALBUTEROL SULFATE NEB 2.5 MG/0.5 ML INH INHALATION (08:49)
[2020-03-01] MEDS: IPRATROPIUM BR 0.02% INH SOLN 0.5 MG/2.5 ML VIAL INHALATION (08:49)
--- NOTE | 2020-03-01 12:19 | PM.IMPN ---
Progress Note: A&P Assessment and Plan (1) Abscess: Code(s): L02.91 - Cutaneous abscess, unspecified Status: Acute Assessment and Plan: Patient had contrast for the CT. Patient had large amount of blood and pus coming out of a abscess from the right hip. the cotton tip and approximately 3 to 4 in which I could have pushed it further but I had a short Contin tip. It appears that the abscesses tunneling. This appears to be an infected hematoma. Patient's white count is 33.5. The patient was started on Invanz per the request of the surgeon. He was also on vancomycin. Blood cultures wound cultures are all pending. I asked that there is the interventional radiologists here today for possible drain placement but there is nobody available today. Will continue to re-dressed that area and keep an eye on his H&H. patient is 74-year-old male male known to me as i recently discharged him to [facility] after he was treated for lower extremities cellulits, pneumonia and developed atrial fibrillation upon discharged on 01/29/2020 patient clinically symptoms were stable his heart rate was stable as well as his mental condition, however he was sent to emergency department from [facility] yesterday with 1 day history fever and large hematoma on his right buttock emergency depart patient had I and D there was large blood and pus expressed, patient started on Ivenz and vancomycin, on 02/20 patient was seen by surgery team and exploration of the wound pus was removed and wound was cleaned, recommended wound vac, patient had CT scan of the chest showed bilateral pneumonia patient is being treated with Cefdinir and vancomycin, today 02/22 wound and urine culture is growing Klebsiella pneumonia blood culture is growing staph aureus today patient was seen Dr. Gonzalez switch Ivenz to cefdinir and continued vancomycin to cover for MRSA, will order cardiac echo rule out any vegetation, Patient was seen by surgery team om 02/21 and placed wound vac. upon arrival patient was quite nauseated and was vomiting to prevent aspiration patient was placed on NG tube, on 02/22 started the patient on procalmine for nutrient, once patient is more awake will remove the NG tube and have a bedside swallow study and further recommendation to follow, on 02/24 patient was little more awake he was seen by speech therapy iwas taken to radiology for modified swallow study and patient failed,and speech pathologist recommended NPO, patient was seen by Dr. Maradiaga recommended nasoduodenal tube and it was placed by IR, patient was started on slow tube feeding however he had an vomiting episode and tube was stop. patient was also seen by Dr. Gonzalez recommended to continue vancomycin 01/07 and switched cefdinir to Omnicef, on the morning of 02/25 feedings was started a low-dose 25 cc/hour continued to monitor and patient also was seen by Dr. Maradiaga and wound vac was changed, on 02/26 feeding rate was at 70cc/hr and he was able to tolerate without any symptoms, stopped procalamine, on 02/27 accidently patient NG tube was pulled out, and unable to reinsert the tube because IR was off, resumed procalamine, Today 02/28 patient remained clinically stable and heart rate was controlled, patient NG tube was reinserted and resumed patient's feeding and low-dose of 25 cc per hour and advanced as tolerated to 75 cc per hour, today on 03/01 patient on 03/09 for his vancomycin and he completed the course cefdinir on 02/28 11/30, today's patient is more alert and interactive, will do the bedside swallow study and further recommendation to follow-up will have a PT OT work with the patient. (2) Pneumonia: Onset Date: ~01/2020 Qualifiers: Laterality: bilateral Lung location: unspecified part of lung Pneumonia type: due to unspecified organism Qualified Code(s): J18.9 - Pneumonia, unspecified organism Code(s): J18.9 - Pneumonia, unspecified organism Status: Acute
--- NOTE | 2020-03-01 12:24 | PM.PNGS ---
Progress Note: A&P Assessment and Plan (1) Abscess of right buttock: Onset Date: ~01/2020 Code(s): L02.31 - Cutaneous abscess of buttock Status: Acute Assessment and Plan: Discussed with wound care nurses. There is a wound VAC in place. Will wait to see what kind drainage and what volume we get out of this. ( now dark reddish and less purulent then when 1st opened). His hemoglobin is down slightly ove the week end. Plan to see right buttock wound tomorrow during dressing change with wound care nurses. (2) Dementia: Onset Date: Unknown Code(s): F03.90 - Unspecified dementia without behavioral disturbance Status: Acute Additional Plan Patient needed a wider incision and drainage which was done last Saturday (see operative note). The wound nurses saw the patient on Saturday and placed wound VAC. The area was much turkey cleaner todayday and is showing signs of beginning to granulate. Agree with continued antibiotics and adjust according to sensitivities once they return from the wound culture. Wound culture is growing Haemophilus influenza. This is was also growing from his urinary tract. I believe he is on appropriate coverage for same. Agree with consultation with ID in view of the fact that blood 1 blood culture is showing MRSA. and to new more recent blood cultures are now completed and no growth at 5 days. Discussed his situation with the patient's nurse, and since the patient is more alert today I suggested that we consider repeating the bedside swallow test and or his Radiology swallow test to see if he can begin trying to take a p.o. diet. She will discuss this with hospitalist and they will make a decision about proceeding or not. Subjective Subjective Date/Time Seen: 03/01/20 08:00 Patient awake and sitting slightly up when I entered the room today. He was able to answer questions better today. I asked if he was having pain anywhere any pointed toward his right foot. He specifically denied abdominal pain today. His nurse states that he has been tolerating his tube feedings through the nasogastric/ duodenal tube overnight and now at 75 cc in our goal rate. Review of Systems Constitutional: Constitutional: Reports no additional constitutional complaints Gastrointestinal: Gastrointestinal: Reports loose stools Integumentary/Breasts: Skin/Breast: Reports system reviewed and no additional complaints, except as docu Comments: Patient has 2 pressure sores along the lateral side of his right foot and ones small approximately dime-sized pressure sore with dark skinned on the heel of his left foot. Today was the 1st time that he complained of pain and was pain in his right foot. Exam Const: General: cooperative, no acute distress and well developed Nutritional Appearance: malnourished Limitations: altered mental status Eyes: General: appearance normal, both eyes and all related structures Pupils: Equal, round and reactive pupils present EOM: EOMs intact bilaterally Neck: Neck: normal visual inspection, no lymphadenopathy, trachea midline and supple Lymphatic: no lymphadenopathy noted Chest: Chest palpation & inspection: normal inspection of the chest GI: Inspection: normal to inspection Auscultation: normal bowel sounds Rectal Exam: deferred : General: Yes no CVA tenderness Urinary Catheter: Urinary Catheter: patent and draining and urine clear Back/Spine/Pelvis: Back: no CVA tenderness and No mass Cervical Spine: cervical ROM normal Skin: General skin exam: normal color and no rashes or lesions noted Lesions: no lesions Rashes: no rashes Trauma: no lacerations or abrasions Wounds: wounds noted ( right buttock area (see below)) Hair: normal Nails: normal Other: Wound VAC dressing on the right buttock area intact without significant through drainage. There appears to be less cloudy reddish brown drainage in the wound VAC set up which was the 12nd canister used
--- NOTE | 2020-03-01 12:28 | PCDIET ---
Nutrition Follow-Up Complete: Inadequate oral intake related to possible dysphagia as evidenced by NPO status. Patient to meet estimated nutritional needs. Goal: Goal met. Continue goal. Pt current nutrition is Jevity 1.2 at 75ml/hr. Nutrition recommendation: Recommend decrease to goal of 70ml/hr Last recorded weight is 83.6 kg, down from 88.4kg Bowel Motility: BM yesterday Labs Reviewed:Hgb/hct 9.5/29.3, Na 133, Cr .40, Glucose 121, Ca 7.8 Meds Noted:albuterol, Mag Oxide, Zofran, Protonix, Miralax, Vancomycin Additional Notes: Pt tolerating EN at 75ml/hr providing 1980 kcals over 22hrs. Recommend decreasing slightly to goal of 70ml/hr to provide 1848kcals, 85g protein, and 1242ml of free water over 22hrs. Pt with no emesis today and residual of only 30ml at goal. We will continue to monitor EN every t/f. Follow up every Saturday/Saturday.
--- NOTE | 2020-03-01 13:24 | WPDINFPN2 ---
Progress Note: A&P Assessment and Plan (1) Abscess of right buttock: Onset Date: ~01/2020 Code(s): L02.31 - Cutaneous abscess of buttock Status: Acute Assessment and Plan: 1. R buttock abscess , Klebsiella, drained. POD # 9. Vac in place 2. MRSA bacteremia with infection, skin source likely , 1/2 sets, microbiologic cure 3. PCN allergy REC Vanc # 10 / 14, continue, trough in process. cefdinir #8, stop. Local wound care. TMP-SMX DS x 2 weeks after IV Vanc is done. Subjective Date/time seen: 03/01/20 13:24 Interval history: dobhoff in place and in use Exam Narrative: Exam Narrative: afebrile. Non verbal, appears comfortable Const: General: no acute distress Eyes: General: appearance normal, both eyes and all related structures Resp: Effort & Inspection: normal respiratory effort Auscultation: clear to auscultation bilaterally Cardio: Rate: regular rate Rhythm: regular rhythm Heart sounds: no murmurs GI: Inspection: non-distended GI Palp: Yes Soft to palpation and No Tenderness to palpation present (GI) Urinary Catheter: Urinary Catheter: patent and draining and urine clear Skin: General skin exam: no rashes or lesions noted Other: vac in place Objective Data Vital Signs Vital Signs: Vital Signs - 24 hr 02/29/20 15:56 02/29/20 19:31 02/29/20 20:45 Temperature 36.6 C Pulse Rate 74 65 Respiratory Rate 14 Blood Pressure 109/61 Pulse Oximetry 96 92 02/29/20 21:54 03/01/20 00:00 03/01/20 06:00 Temperature 36.2 C L 36.4 C L 36.1 C L Pulse Rate 73 76 79 Respiratory Rate 20 16 20 Blood Pressure 123/61 97/49 L 102/45 L Pulse Oximetry 97 97 95 03/01/20 10:00 Temperature 36.3 C L Pulse Rate 77 Respiratory Rate 14 Blood Pressure 104/53 L Pulse Oximetry 97 Intake/Output Intake/Output: Intake & Output 02/27/20 02/28/20 02/29/20 03/01/20 23:59 23:59 23:59 23:59 Intake Total 1250 2868 3466 2880 Output Total 1900 1600 3675 1100 Balance -650 1268 -209 1780 Meds/Results Medications: Active Medications Generic Name Dose Route Start Last Admin Trade Name Freq PRN Reason Stop Dose Admin Albuterol 2.5 mg 02/20/20 20:16 03/01/20 08:49 Albuterol Sulf Neb 2.5mg/0.5ml INHALATION 2.5 mg Q6HRT PRN Administration Shortness Of Breath Budesonide/Formoterol Fumarate 2 puff 02/20/20 20:00 03/01/20 08:59 Symbicort 160-4.5 Mcg (*Sp) Inhaler INHALATION 2 puff Q12HRT BROOK Administration Docusate Sodium 100 mg 02/27/20 20:38 Colace Liquid FEED TUBE PRN PRN Constipation Vancomycin HCl 1,250 mg in 250 mls @ 250 mls/hr 02/21/20 14:00 03/01/20 03:00 Vancomycin 1,250 Mg/D5w 250 Ml IVPB Infused Q12H BROOK Infusion Dextrose 1,000 mls @ 50 mls/hr 02/28/20 08:45 Dextrose 10% IV CONT .Q20H PRN if PN is interrupted Ipratropium [place] 0.5 mg 02/20/20 19:59 03/01/20 08:49 Atrovent Neb INHALATION 0.5 mg Q6HRT PRN Administration Shortness Of Breath Magnesium Oxide 400 mg 02/24/20 09:00 02/29/20 13:31 Mag-Ox FEED TUBE Not Given QAM BROOK Miconazole Nitrate 1 applic 02/20/20 21:00 03/01/20 08:09 Aloe [place] TOPICAL 1 applic Q12HR BROOK Administration Ondansetron HCl 4 mg 02/20/20 20:14 02/25/20 22:31 Zofran Inj IV PUSH 4 mg Q4H PRN Administration Nausea And Vomiting Pantoprazole Sodium 20 mg 02/20/20 21:00 Protonix PO HS BROOK Pantoprazole Sodium 40 mg 02/20/20 21:00 03/01/20 08:10 Protonix Iv IV PUSH 40 mg Q12HR BROOK Administration Polyethylene Glycol 17 gm 02/23/20 10:09 Miralax FEED TUBE QAM PRN Constipation Sertraline HCl 50 mg 02/24/20 09:00 02/29/20 13:31 Zoloft FEED TUBE Not Given DAILY BROOK Sodium Chloride 1,000 ml 03/01/20 05:00 Sodium Chloride 0.9% Irrig IRRIGATION DIRECTED BROOK Sotalol HCl 40 mg 02/23/20 21:00 03/01/20 08:09 Betapace FEED TUBE 40 mg Q12HR BROOK Administration
--- NOTE | 2020-03-01 15:57 | PCSTNOTE ---
Please refer to the Bedside Swallow Evaluation in the EMR. Please note, silent aspiration cannot be ruled out at bedside.
[2020-03-01 18:24] LABS: Glucose Point of Care 120 (65-105)
[2020-03-01 23:40] LABS: Glucose Point of Care 125 (65-105)
[2020-03-02] VITALS (10 sets, daily range): BP systolic 104–144; BP diastolic 53–79; PULSE 60–92; RESP 16–24; TEMP 36–36.6; O2SAT 94–98; BMI 11.0
[2020-03-02 05:55] LABS: Hematocrit 30.5 % (42.0-52.0); Hemoglobin 9.8 g/dL (14.0-18.0); Immature Platelet Fraction Pct 3.9 % (0.9-11.2); Mean Corpuscular HGB Conc 32.1 g/dl (32-36); Mean Corpuscular Hemoglobin 31.7 pg (26-34); Mean Corpuscular Volume 98.7 fl (80-100); Mean Platelet Volume 10.9 fl (7.4-10.4); Platelet Count Result 136 k/mm3 (150-375); Red Blood Count 3.09 M/mm3 (4.6-6.20); Red Cell Distribution Width 15.8 % (11.5-14.5); White Blood Count 8.8 K/mm3 (4.5-10.0)
[2020-03-02 06:05] LABS: Anion Gap 5 mmol/L (8-16); Blood Urea Nitrogen 18 mg/dL (9-20); Calcium 7.6 mg/dL (8.4-10.2); Carbon Dioxide 27 mmol/L (22-30); Chloride 99 mmol/L (98-107); Estimated CRCL calculation 133 ml/min; Estimated Glomerular Filt Rate > 60; Glucose 117 mg/dL (75-110); Phosphorus 3.2 mg/dL (2.5-4.5); Potassium 4.1 mmol/L (3.4-5.0); Sodium 131 mmol/L (137-145)
[2020-03-02 06:06] LABS: Triglycerides 156 mg/dL (<150)
[2020-03-02 06:54] LABS: Glucose Point of Care 125 (65-105)
--- NOTE | 2020-03-02 07:37 | PM.PNGS ---
Progress Note: A&P Assessment and Plan (1) Abscess of right buttock: Onset Date: ~01/2020 Code(s): L02.31 - Cutaneous abscess of buttock Status: Acute Assessment and Plan: Discussed with wound care nurses. There is a wound VAC in place. Will wait to see what kind drainage and what volume we get out of this. ( now dark reddish and less purulent then when 1st opened). His hemoglobin is stable for the last 3 days at around 9.4. Plan to see right buttock wound again on Saturday during dressing change with wound care nurses. (2) Dementia: Onset Date: Unknown Code(s): F03.90 - Unspecified dementia without behavioral disturbance Status: Acute Additional Plan Patient needed a wider incision and drainage which was done in late Jan. (see operative note). The wound nurses saw the patient on and placed wound VAC. The area continues to get vat cleaner and is showing signs of good granulation. Agree with continued antibiotics and adjust according to sensitivities once they return from the wound culture. Wound culture is growing Haemophilus influenza. This is was also growing from his urinary tract. I believe he is on appropriate coverage for same. Agree with consultation with ID in view of the fact that blood 1 blood culture is showing MRSA. and to new more recent blood cultures are now completed and no growth at 5 days. Discussed his situation with the patient's nurse, and since the patient is more alert today I suggested that we consider repeating the bedside swallow test and or his Radiology swallow test to see if he can begin trying to take a p.o. diet. She will discuss this with hospitalist and they will make a decision about proceeding or not. Subjective Subjective Date/Time Seen: 03/02/20 07:37 Patient is sleeping with head slightly up when I entered the room. Nurses report tube feedings are going well with no vomiting or high residuals. Review of Systems Review of Systems: ROS unobtainable: Yes unobtainable due to medical condition and unobtainable due to mental status Exam Const: General: cooperative, no acute distress and well developed Nutritional Appearance: malnourished Limitations: altered mental status HENMT: Head: normal to inspection, normocephalic and atraumatic Ears: hearing grossly normal bilaterally General nose exam: Normal external nose present Face and sinus: normal facial exam Mouth: Yes Normal oral and palatal mucosa present, Yes tongue normal and Yes moist mucous membranes Other: Nasal-duodenal tube in place. Neck: Neck: normal visual inspection, no lymphadenopathy, trachea midline and supple Lymphatic: no lymphadenopathy noted Chest: Chest palpation & inspection: normal inspection of the chest Resp: Effort & Inspection: normal respiratory effort and able to speak in complete sentences Auscultation: clear to auscultation bilaterally GI: Inspection: normal to inspection Auscultation: normal bowel sounds Rectal Exam: deferred : General: Yes no CVA tenderness Urinary Catheter: Urinary Catheter: patent and draining and urine clear Back/Spine/Pelvis: Back: no CVA tenderness and No mass Cervical Spine: cervical ROM normal Skin: General skin exam: normal color and no rashes or lesions noted Lesions: no lesions Rashes: no rashes Trauma: no lacerations or abrasions Wounds: wounds noted ( right buttock area (see below)) Hair: normal Nails: normal Other: Wound VAC dressing on the right buttock area intact without significant through drainage. There appears to be less cloudy reddish brown drainage in the wound VAC set up which was the 2nd canister used and it appears to have about 450 cc or so total drainage from the wound since Saturday. It is both my opinion and Whit from wound care feels that the cavity is shrinking in nicely. There was less sponge able to be placed into the wound today then Saturday. Patient will have wound VAC change with wound ca
[2020-03-02] MEDS: PANTOPRAZOLE SODIUM IV 40 MG VIAL IV PUSH ×2 (10:28→22:27)
[2020-03-02] MEDS: SOTALOL HCL 40 MG TABLET FEED TUBE ×2 (10:28→22:27)
--- NOTE | 2020-03-02 11:17 | PCSTNOTE ---
This patient was seen for an attempted Modified Barium Swallow study. Patient leaned forward and remained out of the view of the flouroscopy machine and was unable to remain in an upright position in spite of being placed more upright by microbiology technologist and this speech language pathologist. The radiologist, Dr. Munson, determined that this MBS study could not be completed appropriately with the patient in this position. Test was not initiated and unable to be completed. This speech pathologist will call nurse and physician with this information.
--- NOTE | 2020-03-02 11:34 | PC.NURSE ---
Called and left a message with Cyndy Evans the patients healthcare power of environmental attorney and informed her to call [phone] back in regards to the patients current status and further update.
--- NOTE | 2020-03-02 11:54 | WPDINFPN2 ---
Progress Note: A&P Assessment and Plan (1) Abscess of right buttock: Onset Date: ~01/2020 Code(s): L02.31 - Cutaneous abscess of buttock Status: Acute Assessment and Plan: 1. R buttock abscess , Klebsiella, drained. POD # 10. Vac in place 2. MRSA bacteremia with infection, skin source likely, 1/2 sets, microbiologic cure 3. PCN allergy REC Vanc # , continue, trough is appropriate. Off cefdinir. Local wound care. TMP-SMX DS x 2 weeks after IV Vanc is done. Subjective Date/time seen: 03/02/20 11:54 Interval history: non verbal, opens eyes Exam Narrative: Exam Narrative: afebrile Const: General: no acute distress Other: appears chronically ill Resp: Effort & Inspection: normal respiratory effort Auscultation: clear to auscultation bilaterally and diminished lung sounds Cardio: Rate: regular rate Rhythm: regular rhythm Heart sounds: no murmurs GI: Inspection: non-distended GI Palp: Yes Soft to palpation and No Tenderness to palpation present (GI) Percussion: Yes normal to percussion Skin: General skin exam: normal color and no rashes or lesions noted Other: vac R hip, no erythema no tenderness no warmth Objective Data Vital Signs Vital Signs: Vital Signs - 24 hr 03/01/20 14:00 03/01/20 18:00 03/01/20 19:09 Temperature 36.6 C 36.4 C L Pulse Rate 73 72 76 Respiratory Rate 16 16 18 Blood Pressure 99/54 L 112/61 Pulse Oximetry 96 97 94 03/01/20 20:00 03/01/20 21:03 03/01/20 22:00 Temperature 36.2 C L Pulse Rate 75 75 75 Respiratory Rate 18 20 Blood Pressure 121/59 L Pulse Oximetry 94 73 L 03/02/20 00:00 03/02/20 06:00 03/02/20 10:00 Temperature 36.1 C L 36.0 C L 36.3 C L Pulse Rate 60 72 65 Respiratory Rate 20 16 18 Blood Pressure 104/53 L 114/56 L 144/72 H Pulse Oximetry 98 94 97 03/02/20 10:03 03/02/20 10:28 Temperature Pulse Rate 80 Respiratory Rate Blood Pressure Pulse Oximetry 95 Intake/Output Intake/Output: Intake & Output 02/28/20 02/29/20 03/01/20 03/02/20 23:59 23:59 23:59 23:59 Intake Total 2866 3466 3715 1449 Output Total 1600 8935 1950 700 Balance 1268 -209 9825 389 Meds/Results Medications: Active Medications Generic Name Dose Route Start Last Admin Trade Name Freq PRN Reason Stop Dose Admin Albuterol 2.5 mg 02/20/20 20:16 03/01/20 08:49 Albuterol Sulf Neb 2.5mg/0.5ml INHALATION 2.5 mg Q6HRT PRN Administration Shortness Of Breath Budesonide/Formoterol Fumarate 2 puff 02/20/20 20:00 03/02/20 08:48 Symbicort 160-4.5 Mcg (*Sp) Inhaler INHALATION 2 puff Q12HRT BROOK Administration Docusate Sodium 100 mg 02/27/20 20:38 Colace Liquid FEED TUBE PRN PRN Constipation Vancomycin HCl 1,250 mg in 250 mls @ 250 mls/hr 02/21/20 14:00 03/02/20 03:44 Vancomycin 1,250 Mg/D5w 250 Ml IVPB Infused Q12H BROOK Infusion Dextrose 1,000 mls @ 50 mls/hr 02/28/20 08:45 Dextrose 10% IV CONT .Q20H PRN if PN is interrupted Ipratropium [place] 0.5 mg 02/20/20 19:59 03/01/20 08:49 Atrovent Neb INHALATION 0.5 mg Q6HRT PRN Administration Shortness Of Breath Magnesium Oxide 400 mg 02/24/20 09:00 02/29/20 13:31 Mag-Ox FEED TUBE Not Given QAM BROOK Miconazole Nitrate 1 applic 02/20/20 21:00 03/02/20 10:29 Aloe [place] TOPICAL 1 applic Q12HR BOROK Administration Ondansetron HCl 4 mg 02/20/20 20:14 02/25/20 22:31 Zofran Inj IV PUSH 4 mg Q4H PRN Administration Nausea And Vomiting Pantoprazole Sodium 20 mg 02/20/20 21:00 Protonix PO HS BROOK Pantoprazole Sodium 40 mg 02/20/20 21:00 03/02/20 10:28 Protonix Iv IV PUSH 40 mg Q12HR BROOK Administration Polyethylene Glycol 17 gm 02/23/20 10:09 Miralax FEED TUBE QAM PRN Constipation Sertraline HCl 50 mg 02/24/20 09:00 02/29/20 13:31 Zoloft FEED TUBE Not Given DAILY BROOK Sodium Chloride 1,000 ml 03/01/20 05:00 Sodium Chloride
--- NOTE | 2020-03-02 13:36 | P.PNIM_ITS ---
Progress Note: A&P Assessment and Plan (1) Abscess: Code(s): L02.91 - Cutaneous abscess, unspecified Status: Acute Assessment and Plan: 03/02/20 13:36 Patient had contrast for the CT. Patient had large amount of blood and pus coming out of a abscess from the right hip. the cotton tip and approximately 3 to 4 in which I could have pushed it further but I had a short Contin tip. It appears that the abscesses tunneling. This appears to be an infected hematoma. Patient's white count is 33.5. The patient was started on Invanz per the request of the surgeon. He was also on vancomycin. Blood cultures wound cultures are all pending. I asked that there is the interventional radiologists here today for possible drain placement but there is nobody available today. Will continue to re-dressed that area and keep an eye on his H&H. patient is 74-year-old male male known to me as i recently discharged him to [facility] [place] after he was treated for lower extremities cellulits, pneumonia and developed atrial fibrillation upon discharged on 01/29/2020 patient clinically symptoms were stable his heart rate was stable as well as his mental condition, however [facility] with 1 day history fever and large hematoma on his right buttock emergency depart patient had I and D there was large blood and pus expressed, patient started on Ivenz and vancomycin, on 02/20 patient was seen by surgery team and exploration of the wound pus was removed and wound was cleaned, recommended wound vac, patient had CT scan of the chest showed bilateral pneumonia patient is being treated with Cefdinir and vancomycin, today 02/22 wound and urine culture is growing Klebsiella pneumonia blood culture is growing staph aureus today patient was seen Dr. Gonzalez switch Ivenz to cefdinir and continued vancomycin to cover for MRSA, will order cardiac echo rule out any vegetation, Patient was seen by surgery team om 02/21 and placed wound vac. upon arrival pat ient was quite nauseated and was vomiting to prevent aspiration patient was placed on NG tube, on 02/22 started the patient on procalmine for nutrient, once patient is more awake will remove the NG tube and have a bedside swallow study and further recommendation to follow, on 02/24 patient was little more awake he was seen by speech therapy iwas taken to radiology for modified swallow study and patient failed,and speech pathologist recommended NPO, patient was seen by Dr. Maradiaga recommended nasoduodenal tube and it was placed by IR, patient was started on slow tube feeding however he had an vomiting episode and tube was stop. patient was also seen by Dr. Gonzalez recommended to continue vancomycin 01/07 and switched cefdinir to Omnicef, on the morning of 02/25 feedings was started a low-dose 25 cc/hour continued to monitor and patient also was seen by Dr. Maradiaga and wound vac was changed, on 02/26 feeding rate was at 70cc/hr and he was able to tolerate without any symptoms, stopped procalamine, on 02/27 accidently patient NG tube was pulled out, and unable to reinsert the tube because IR was off, resumed procalamine, Today 02/28 patient remained clinically stable and heart rate was controlled, patient NG tube was reinserted and resumed patient's feeding and low-dose of 25 cc per hour and advanced as tolerated to 75 cc per hour, today on 03/02 patient on 04/09 for his vancomycin and he has completed the course cefdinir on 02/28 11/30, on 03/01 patient was more alert and interactive, he did better with the bedside swallow study and it was recommended to do further With modified swallow study however today he was not able to participate and failed, will continue G-tube feeding, will continue bedside speech therapy
--- NOTE | 2020-03-02 16:03 | PCSTNOTE ---
Patient was seen for a Bedside Swallow Evaluation and appeared to tolerate small amounts of mild feeding. Physician ordered Modified Barium Swallow study to assess risk for aspiration and during that time, patient leaned forward and was unable to sit up straight and hold his head up straight in order to complete test. Dr. Yates was notified of cancellation of Modified Barium Swallow study and he stated that oral feedings are not indicated. Speech Therapy is discharging patient at this time due to being inappropriate to continue at this time. Patient may be re-evaluated in the future.
[2020-03-02 16:23] LABS: Glucose Point of Care 191 (65-105)
[2020-03-02 18:04] LABS: Glucose Point of Care 151 (65-105)
--- NOTE | 2020-03-02 20:42 | PC.NURSE ---
pt receiving tube feeding at 75ml/hr, had large emesis and pt stated he felt full then got sick. Elisa Herrera ordered to hold tube feeding and wait a few hours before attempting to give any medications.
[2020-03-02] MEDS: ONDANSETRON INJ 4 MG/2 ML VIAL IV PUSH (21:28)
[2020-03-03] VITALS (7 sets, daily range): BP systolic 113–155; BP diastolic 59–79; PULSE 74–83; RESP 18–22; TEMP 36.1–36.9; O2SAT 96–98
[2020-03-03 00:31] LABS: Glucose Point of Care 113 (65-105)
[2020-03-03 06:11] LABS: Basophils Absolute Auto 0.1 K/mm3 (0.0-0.1); Basophils Percent Auto 0.6 % (0.2-1.2); Eosinophils Absolute Auto 0.4 K/mm3 (0-0.3); Eosinophils Percent Auto 3.2 % (0-4.4); Hematocrit 31.7 % (42.0-52.0); Hemoglobin 10.2 g/dL (14.0-18.0); Immature Granulocyte Absolute 0.33 K/mm3 (0.00-0.031); Lymphocytes Absolute Auto 1.25 K/mm3 (0.9-3.2); Lymphocytes Percent Auto 11.4 % (18.3-44.2); Mean Corpuscular HGB Conc 32.2 g/dl (32-36); Mean Corpuscular Hemoglobin 30.9 pg (26-34); Mean Corpuscular Volume 96.1 fl (80-100); Mean Platelet Volume 10.7 fl (7.4-10.4); Monocytes Absolute Auto 1.1 K/mm3 (0.1-0.6); Monocytes Percent Auto 10.2 % (2.6-8.5); Neutrophils Absolute Auto 7.8 K/mm3 (1.3-6.7); Neutrophils Percent Auto 71.6 % (45.5-73.1); Nucleated Red Blood Cells Perc 0.2 % (0.0-0.2); Platelet Count Result 153 k/mm3 (150-375); Red Cell Distribution Width 15.9 % (11.5-14.5); White Blood Count 10.9 K/mm3 (4.5-10.0)
[2020-03-03 06:26] LABS: Alanine Aminotransferase 29 U/L (4-50); Albumin Level 2.6 g/dL (3.5-5.1); Alkaline Phosphatase 184 U/L (38-126); Anion Gap 7 mmol/L (8-16); Aspartate Amino Transferase 35 U/L (17-59); Bilirubin,Total 0.5 mg/dL (0.2-1.3); Blood Urea Nitrogen 20 mg/dL (9-20); Calcium 7.9 mg/dL (8.4-10.2); Carbon Dioxide 25 mmol/L (22-30); Chloride 99 mmol/L (98-107); Estimated CRCL calculation 133 ml/min; Estimated Glomerular Filt Rate > 60; Glucose 108 mg/dL (75-110); Magnesium 2.1 mg/dL (1.6-2.3); Phosphorus 3.4 mg/dL (2.5-4.5); Sodium 131 mmol/L (137-145)
[2020-03-03] MEDS: PANTOPRAZOLE SODIUM IV 40 MG VIAL IV PUSH ×2 (07:53→20:13)
[2020-03-03 11:27] LABS: Glucose Point of Care 121 (65-105)
--- NOTE | 2020-03-03 13:55 | WPDINFPN2 ---
Progress Note: A&P Assessment and Plan (1) Abscess of right buttock: Onset Date: ~01/2020 Code(s): L02.31 - Cutaneous abscess of buttock Status: Acute Assessment and Plan: 1. R buttock abscess , Klebsiella, drained. POD # 11. Vac in place 2. MRSA bacteremia with infection, skin source likely, 1/2 sets, microbiologic cure 3. PCN allergy REC Vanc # 12 / 14, continue, trough is appropriate. Off cefdinir. Local wound care. TMP-SMX DS x 2 weeks after IV Vanc is done. Orders done for the above, will sign off, thanks Subjective Date/time seen: 03/03/20 13:55 Interval history: non verbal Exam Narrative: Exam Narrative: afebrile Const: General: no acute distress Resp: Auscultation: clear to auscultation bilaterally Cardio: Rate: regular rate Rhythm: regular rhythm Heart sounds: no murmurs Objective Data Vital Signs Vital Signs: Vital Signs - 24 hr 03/02/20 14:00 03/02/20 18:00 03/02/20 20:00 Temperature 36.6 C 36.3 C L 36.2 C L Pulse Rate 84 92 89 Respiratory Rate 18 16 24 H Blood Pressure 130/68 123/68 140/79 Pulse Oximetry 96 97 97 03/02/20 20:11 03/02/20 22:27 03/03/20 00:00 Temperature 36.6 C Pulse Rate 85 76 Respiratory Rate 20 Blood Pressure 128/72 Pulse Oximetry 96 97 03/03/20 04:00 03/03/20 09:45 Temperature 36.2 C L 36.1 C L Pulse Rate 77 78 Respiratory Rate 18 20 Blood Pressure 113/59 L 123/62 Pulse Oximetry 96 96 Intake/Output Intake/Output: Intake & Output 02/29/20 03/01/20 03/02/20 03/03/20 23:59 23:59 23:59 23:59 Intake Total 3466 3715 1699 250 Output Total 3675 1950 1350 450 Balance -209 1765 349 -200 Meds/Results Medications: Active Medications Generic Name Dose Route Start Last Admin Trade Name Freq PRN Reason Stop Dose Admin Albuterol 2.5 mg 02/20/20 20:16 03/01/20 08:49 Albuterol Sulf Neb 2.5mg/0.5ml INHALATION 2.5 mg Q6HRT PRN Administration Shortness Of Breath Budesonide/Formoterol Fumarate 2 puff 02/20/20 20:00 03/03/20 08:30 Symbicort 160-4.5 Mcg (*Sp) Inhaler INHALATION 2 puff Q12HRT BROOK Administration Docusate Sodium 100 mg 02/27/20 20:38 Colace Liquid FEED TUBE PRN PRN Constipation Vancomycin HCl 1,250 mg in 250 mls @ 250 mls/hr 02/21/20 14:00 03/03/20 06:11 Vancomycin 1,250 Mg/D5w 250 Ml IVPB 03/05/20 14:01 Infused Q12H BROOK Infusion Dextrose 1,000 mls @ 50 mls/hr 02/28/20 08:45 Dextrose 10% IV CONT .Q20H PRN if PN is interrupted Ipratropium [place] 0.5 mg 02/20/20 19:59 03/01/20 08:49 Atrovent Neb INHALATION 0.5 mg Q6HRT PRN Administration Shortness Of Breath Magnesium Oxide 400 mg 02/24/20 09:00 02/29/20 13:31 Mag-Ox FEED TUBE Not Given QAM BROOK Miconazole Nitrate 1 applic 02/20/20 21:00 03/03/20 07:53 Aloe [place] TOPICAL 1 applic Q12HR BROOK Administration Ondansetron HCl 4 mg 02/20/20 20:14 03/02/20 21:28 Zofran Inj IV PUSH 4 mg Q4H PRN Administration Nausea And Vomiting Pantoprazole Sodium 20 mg 02/20/20 21:00 Protonix PO HS BROOK Pantoprazole Sodium 40 mg 02/20/20 21:00 03/03/20 07:53 Protonix Iv IV PUSH 40 mg Q12HR BROOK Administration Polyethylene Glycol 17 gm 02/23/20 10:09 Miralax FEED TUBE QAM PRN Constipation Sertraline HCl 50 mg 02/24/20 09:00 02/29/20 13:31 Zoloft FEED TUBE Not Given DAILY BROOK Sodium Chloride 1,000 ml 03/01/20 05:00 Sodium Chloride 0.9% Irrig IRRIGATION DIRECTED BROOK Sotalol HCl 40 mg 02/23/20 21:00 03/02/20 22:27 Betapace FEED TUBE 40 mg Q12HR BROOK Administration Trimethoprim/Sulfamethoxazole 1 tab 03/06/20 21:00 Septra Ds PO 03/20/20 21:01 Q12HR BROOK Radiology Results: ITS Impressions Head CT 02/20/20 11:22 IMPRESSION: 1. No acute intracranial abnormality. 2: Chronic age-related findings. Chest CT 02/20/20 11:25 IMPRESSION: 1. Bilateral lower lobe airspa
--- NOTE | 2020-03-03 16:58 | PM.DS ---
DS: Admitting Diagnosis Admitting Diagnosis Admitting Diagnosis: SEPSIS/PNEUMONIA DS: Discharge Diagnosis Discharge Diagnosis (1) Abscess: Code(s): L02.91 - Cutaneous abscess, unspecified Status: Acute Assessment and Plan: 03/02/20 13:36 Patient had contrast for the CT. Patient had large amount of blood and pus coming out of a abscess from the right hip. the cotton tip and approximately 3 to 4 in which I could have pushed it further but I had a short Contin tip. It appears that the abscesses tunneling. This appears to be an infected hematoma. Patient's white count is 33.5. The patient was started on Invanz per the request of the surgeon. He was also on vancomycin. Blood cultures wound cultures are all pending. I asked that there is the interventional radiologists here today for possible drain placement but there is nobody available today. Will continue to re-dressed that area and keep an eye on his H&H. patient is 74-year-old male male known to me as i recently discharged him to [facility] after he was treated for lower extremities cellulits, pneumonia and developed atrial fibrillation upon discharged on 01/29/2020 patient clinically symptoms were stable his heart rate was stable as well as his mental condition, however he was sent to emergency department from [place] yesterday with 1 day history fever and large hematoma on his right buttock emergency depart patient had I and D there was large blood and pus expressed, patient started on Ivenz and vancomycin, on 02/20 patient was seen by surgery team and exploration of the wound pus was removed and wound was cleaned, recommended wound vac, patient had CT scan of the chest showed bilateral pneumonia patient is being treated with Cefdinir and vancomycin, today 02/22 wound and urine culture is growing Klebsiella pneumonia blood culture is growing staph aureus today patient was seen Dr. Gonzalez switch Ivenz to cefdinir and continued vancomycin to cover for MRSA, will order cardiac echo rule out any vegetation, Patient was seen by surgery team om 02/21 and placed wound vac. upon arrival patient was quite nauseated and was vomiting to prevent aspiration patient was placed on NG tube, on 02/22 started the patient on procalmine for nutrient, once patient is more awake will remove the NG tube and have a bedside swallow study and further recommendation to follow, on 02/24 patient was little more awake he was seen by speech therapy iwas taken to radiology for modified swallow study and patient failed,and speech pathologist recommended NPO, patient was seen by Dr. Maradiaga recommended nasoduodenal tube and it was placed by IR, patient was started on slow tube feeding however he had an vomiting episode and tube was stop. patient was also seen by Dr. Gonzalez recommended to continue vancomycin 01/07 and switched cefdinir to Omnicef, on the morning of 02/25 feedings was started a low-dose 25 cc/hour continued to monitor and patient also was seen by Dr. Maradiaga and wound vac was changed, on 02/26 feeding rate was at 70cc/hr and he was able to tolerate without any symptoms, stopped procalamine, on 02/27 accidently patient NG tube was pulled out, and unable to reinsert the tube because IR was off, resumed procalamine, Today 02/28 patient remained clinically stable and heart rate was controlled, patient NG tube was reinserted and resumed patient's feeding and low-dose of 25 cc per hour and advanced as tolerated to 75 cc per hour, today on 03/02 patient on 04/09 for his vancomycin and he has completed the course cefdinir on 02/28 11/30, on 03/01 patient was more alert and interactive, he did better with the bedside swallow study and it was recommended to do further With modified swallow study however today he was not able to participate and failed, will continue G-tube feeding, will continue bedside speech therapy and once patient more awake and alert may try modified swallow study again, will con
[2020-03-04] VITALS: BP 143/78; PULSE 87; RESP 22; TEMP 36.2; O2SAT 98
[2020-03-04 04:00] VITALS: BP 142/79; PULSE 81; RESP 18; TEMP 36.3; O2SAT 97
[2020-03-04 06:40] LABS: Anion Gap 7 mmol/L (8-16); Blood Urea Nitrogen 21 mg/dL (9-20); Calcium 8.1 mg/dL (8.4-10.2); Carbon Dioxide 29 mmol/L (22-30); Chloride 98 mmol/L (98-107); Estimated CRCL calculation 110 ml/min; Estimated Glomerular Filt Rate > 60; Glucose 101 mg/dL (75-110); Phosphorus 3.7 mg/dL (2.5-4.5); Potassium 3.8 mmol/L (3.4-5.0); Sodium 134 mmol/L (137-145)
[2020-03-04 07:12] LABS: Triglycerides 139 mg/dL (<150)
[2020-03-04 09:35] VITALS: BP 124/60; PULSE 76; RESP 18; TEMP 37.2; O2SAT 97
--- NOTE | 2020-03-04 12:45 | PCOTNOTE ---
03/04/20: Per nursing hold therapy this date due to patient going hospice
[2020-03-04 13:59] LABS: SARS-CoV-2 RNA PCR Negative
[2020-03-04 14:00] VITALS: BP 118/61; PULSE 69; RESP 18; TEMP 36.8; O2SAT 97
== END 2020-03-04 18:50 | disposition hospice, home (50) | DRG 853 ==
LOC: ANHED 14:13 → ANHICU 16:16 → ANHIMU 02-21 19:41 → ANH2MED 02-25 19:03 → ANHICU 03-08 10:01 → ANHIMU 03-08 10:01
PROVIDERS: Nurse Practitioner; Admitting Provider Internal Medicine; Emergency Provider Emergency Medicine; PCP Family Medicine; Visit Provider Family Medicine
DX: A41.02 Sepsis due to Methicillin resistant Staphylococcus aureus (principal); J18.9 Pneumonia, unspecified organism; N39.0 Urinary tract infection, site not specified; L02.31 Cutaneous abscess of buttock; S30.0XXA Contusion of lower back and pelvis, initial encounter; B96.1 Klebsiella pneumoniae [K. pneumoniae] as the cause of diseases classified elsewhere; F03.90 Unspecified dementia, unspecified severity, without behavioral disturbance, psychotic disturbance, mood disturbance, and anxiety; I11.0 Hypertensive heart disease with heart failure; I50.9 Heart failure, unspecified; Z20.828 Contact with and (suspected) exposure to other viral communicable diseases; J92.0 Pleural plaque with presence of asbestos; I48.0 Paroxysmal atrial fibrillation; R11.2 Nausea with vomiting, unspecified; E87.6 Hypokalemia; Z66 Do not resuscitate; Z74.01 Bed confinement status; Z79.01 Long term (current) use of anticoagulants; Z79.899 Other long term (current) drug therapy; Z86.73 Personal history of transient ischemic attack (TIA), and cerebral infarction without residual deficits; Z88.0 Allergy status to penicillin
CPT/HCPCS: 36415; 43752; 51701; 70450; 71250; 72193; 76536; 80048; 80053; 80202; 81001; 83605; 83735; 84100; 84134; 84443; 84466; 84478; 85014; 85018; 85025; 85027; 85055; 85610; 85730; 86850; 86900; 86901; 87040; 87070; 87077; 87086; 87088; 87186; 87205; 87635; 92610; 92611; 93005; 93306; 94640; 96365; 97161; 97166; 99285; A9270; C9113; C9803; J0696; J1335; J2405; J3370; J3480; J7030; J7120; Q9967; U0003